=== PATIENT | male | born 1935 | race Caucasian/White ===

== ENCOUNTER 2017-05-01 11:40 | Emergency (ER) | payer MEDICARE ==
[~2017-05-01] VITALS: Ht 180.3 cm; Wt 88.2 kg
[~2017-05-01 11:40] MED LIST: CEPH500 PO; CIPR500T4 PO; LORTA10 PO; RANI150 PO; ZOFR4TAB3 SL
[2017-05-01 11:50] VITALS: BP 128/67; PULSE 83; RESP 18; TEMP 98.4; O2SAT 97
[2017-05-01] MEDS ORDERED: SODIUM CHLORIDE 0.9% FLUSH 10 ML FLUSH IVF PRN (12:00)
[2017-05-01] MEDS ORDERED: HYDROmorphone HCL PF 1 MG/ML VIAL IVS ONE (12:00)
[2017-05-01 12:03] VITALS: O2SAT 96
[2017-05-01] MEDS ORDERED: HYDR-3583 PO (12:07)
[2017-05-01] MEDS ORDERED: CIPR-9 PO (12:07)
--- NOTE | 2017-05-01 12:08 | PD ---
HPI Chief Complaint: Pain: Acute or Chronic Time Seen by Provider: 11:50 Travel History International Travel<30 days: No Contact w/Intl Traveler<30days: No Traveled to known affect area: No History of Present Illness HPI STATES THAT ABOUT 2 DAYS AGO HE FELL OFF HIS BED, AND SINCE THEN HAS HAD RIGHT HIP PAIN , SHARP, 8/10, WORSE WITH AMBULATION/WEIGHT BEARING, NO ALLEVIATING FACTORS, NO OTHER ASSOC FACTORS. PFSH Past Medical History Arthritis: Yes Asthma: No Autoimmune Disease: No Heart Rhythm Problems: No Cancer: Yes (PROSTATE [place] 2007) Cardiovascular Problems: No High Cholesterol: No Chemotherapy: No Chest Pain: No Congestive Heart Failure: No COPD: No Cerebrovascular Accident: No Diabetes: No Diminished Hearing: Yes GERD: Yes Genitourinary: Yes ([place] PROSTATE, URINARY RETENTION) Hepatitis: No Hiatal Hernia: Yes Herniated Disk: Yes Immune Disorder: No Kidney Stones: No Medical other: Yes (CHRONIC BACK PAIN) Musculoskeletal: Yes (LEFT ARM LIMITED MOVEMENT) Neurologic: Yes (DIPLOPIA) Psychiatric: No Reproductive: No Respiratory: No Immunizations Current: Yes Migraines: No Radiation Therapy: Yes Renal Failure: No Seizures: No Sickle Cell Disease: No Sleep Apnea: No Thyroid Disease: No Ulcer: No Influenza Vaccination: No Past Surgical History Abdominal Surgery: Yes (APPENDECTOMY) AICD: No Appendectomy: Yes Arteriovenous Shunt: No Cardiac Surgery: No 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) Endocrine Surgery: No Eye Surgery: No Genitourinary Surgery: No Gynecologic Surgery: No Insulin Pump: No Joint Replacement: Yes (LEFT SHOULDER, LEFT KNEE) Neurologic Surgery: Yes (LAMINECTOMY) Oral Surgery: Yes (TONSILLECTOMY) Pacemaker: No Prostatectomy: Yes (2002) Thoracic Surgery: No Tonsillectomy: Yes () Other Surgery: Yes ( 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 HEAD: Atraumatic. Normocephalic. EYES: Pupils equal and round. No scleral icterus. No injection or drainage. ENT: No nasal bleeding or discharge. Mucous membranes pink and moist. NECK: Trachea midline. No JVD. CARDIOVASCULAR: Regular rate and rhythm. RESPIRATORY: No accessory muscle use. Clear to auscultation. Breath sounds equal bilaterally. GASTROINTESTINAL: Abdomen soft, non-tender, nondistended. MUSCULOSKELETAL: Extremities without clubbing, cyanosis, or edema. No obvious deformities. BUT TTP ALONG LATERAL HIP(NEAR GREATER TROCHANTER), NO DEFORMITY, SKIN INTACT. NEUROLOGICAL: Awake and alert. No obvious cranial nerve deficits. Motor grossly within normal limits. Five out of 5 muscle strength in the arms and legs. Normal speech. PSYCHIATRIC: Appropriate mood and affect; insight and judgment normal. Data Data Last Documented VS Vital Signs Date Time Temp Pulse Resp B/P Pulse Ox O2 Delivery O2 Flow Rate FiO2 05/01/17 12:03 96 Room Air 05/01/17 11:50 98.4 83 18 128/67 Orders Electrocardiogram (05/01/17 11:50) Complete Blood Count With Diff (05/01/17 11:50) Comprehensive Metabolic Panel (05/01/17 11:50) Prothrombin Time / Inr (Pt) (05/01/17 11:50) Act Partial Throm Time (Ptt) (05/01/17 11:50) Hip, Uni(Ap&Lat) W Ap Pelvis (05/01/17 11:50) Iv Access Insert/Monitor (05/01/17 11:50) Oximetry (05/01/17 11:50) Ecg Monitoring (05/01/17 11:50) Sodium Chloride 0.9% Flush (Ns Flush) (05/01/17 12:00) Hydromorphone Pf Inj (Dilaudid Pf Inj) (05/01/17 12:00) Labs Laboratory Tests Test 05/01/17 12:13 White Blood Count 6.4 TH/MM3 Red Blood Count 5.11 MIL/MM3 Hemoglobin 14.2 GM/DL Hematocrit 43.7 % Mean Corpuscular Volume 85.5 FL Mean Corpuscular Hemoglobin 27.8 PG Mean Corpuscular Hemoglobin 32.5 % Concent Red Cell Distribution Width 14.0 % Platelet Count 189 TH/MM3 Mean Platelet Volume 7.1 FL Neutrophils (%) (Auto) 76.4 % Lymphocytes (%) (Auto) 10.3 % Monocytes (%) (Auto) 9.9 % Eosinophils (%) (Auto) 2.8 % Basophils (%) (Auto) 0.6 % Neutrophils # (Auto) 4.9 TH/MM3 Lymphocytes # (Auto) 0.7 TH/MM3 Monocytes # (Auto) 0.6 TH/MM3 Eosinophils # (Auto) 0.2 TH/MM3 Basophils # (Auto) 0.0 TH/MM3 CBC Comment DIFF FINAL Differential Comment Prothrombin Time 11.0 SEC Prothromb Time International 1.0 RATIO Ratio Activated Partial 32.3 SEC Thromboplast Time Sodium Level 141 MEQ/L Potassium Level 4.2 MEQ/L Chloride Level 107 MEQ/L Carbon Dioxide Level 26.6 MEQ/L Anion Gap 7 MEQ/L Blood Urea Nitrogen 24 MG/DL Creatinine 1.10 MG/DL Estimat Glomerular Filtration 64 ML/MIN Rate Random Glucose 109 MG/DL Calcium Level 8.8 MG/DL Total Bilirubin 0.7 MG/DL Aspartate Amino Transf 17 U/L (AST/SGOT) Alanine Aminotransferase 18 U/L (ALT/SGPT) Alkaline Phosphatase 109 U/L Total Protein 7.4 GM/DL Albumin 3.5 GM/DL MDM Medical Decision Making Medical Screen Exam Complete: Yes Emergency Medical Condition: Yes Medical Record Reviewed: Yes Differential Diagnosis CONTUSION V HIP DISLOCATION V HIP FX V PELVIC FX Narrative Course PER REVIEW OF XRAY AND ALSO READ BY RADIOLOGIST: NO HIP FX OR DISLOCATION, ALSO NO PELVIC FX EITHER. AREA NEAR GREATER TROCHANTER HAD SOME TTP OVER SOFT TISSUE BUT INTERNAL/EXTERNAL ROTATION AT HIP PAINLESS. Diagnosis Primary Impression: RIGHT HIP CONTUSION Patient Instructions: General Instructions, Hip Contusion (ED) Scripts Polyethylene Glycol 3350 Powder (Miralax Powder)17 Gm Powd17 Gm PO DAILY #1 CAN Ref 0 Mix and dissolve one measuring cap-ful (17 grams) in water or juice. Prov:Joni Yang MD 05/01/17 Oxycodone-Acetaminophen (Percocet)5-325 mg Tab1 Tab PO Q6H PRN (PAIN) #28 TAB Prov:Joni Yang MD 05/01/17 Disposition: 01 DISCHARGE HOME Condition: Stable Joni Yang MD May 01, 2017 12:08
[2017-05-01 12:17] LABS: AUTOMATED NEUTROPHIL # 4.9 TH/MM3 (1.8-7.7); BASOPHIL % 0.6 % (0.0-2.0); EOSINOPHIL # 0.2 TH/MM3 (0-0.4); EOSINOPHIL % 2.8 % (0.0-4.0); HEMATOCRIT 43.7 % (39.0-51.0); HEMO FLAGS DIFF FINAL; LYMPH % 10.3 % (9.0-44.0); LYMPHOCYTE # 0.7 TH/MM3 (1.0-4.8); MEAN CELL VOLUME 85.5 FL (80.0-100.0); MEAN CORPUSCULAR HEMOGLOBIN 27.8 PG (27.0-34.0); MEAN CORPUSCULAR HGB CONC 32.5 % (32.0-36.0); MONO % 9.9 % (0.0-8.0); NEUT % 76.4 % (16.0-70.0); PLATELET COUNT 189 TH/MM3 (150-450); RED BLOOD COUNT 5.11 MIL/MM3 (4.50-5.90); WHITE BLOOD COUNT 6.4 TH/MM3 (4.0-11.0)
[2017-05-01 12:28] LABS: CHLORIDE 107 MEQ/L (98-107); POTASSIUM 4.2 MEQ/L (3.5-5.1); SODIUM (NA) 141 MEQ/L (136-145)
[2017-05-01 12:32] LABS: APTT (PATIENT) 32.3 SEC (24.3-30.1)
[2017-05-01 12:33] LABS: ANION GAP 7 MEQ/L (5-15); BICARBONATE 26.6 MEQ/L (21.0-32.0); BLOOD UREA NITROGEN 24 MG/DL (7-18)
[2017-05-01 12:36] LABS: ALT (GPT) 18 U/L (12-78); AST (GOT) 17 U/L (15-37); GLOMERULAR FILTRATION RATE 64 ML/MIN (>89)
[2017-05-01 12:38] LABS: TOTAL BILIRUBIN ADULT 0.7 MG/DL (0.2-1.0)
[2017-05-01 12:39] LABS: ALKALINE PHOSPHATASE 109 U/L (45-117)
--- NOTE | 2017-05-01 12:49 | RADRPT ---
EXAM DATE/TIME: 05/01/2017 12:32 [facility] COMPARISON: No previous studies available for comparison. INDICATIONS : Right hip pain. MEDICAL HISTORY : None. SURGICAL HISTORY : None. ENCOUNTER: Initial ACUITY: 2 weeks PAIN SCORE: 10/10 LOCATION: Right hip FINDINGS: Examination of the right hip was performed with AP Pelvis. The primary and secondary trabecular kiara jerome of the femoral neck is intact. The hip joint is of normal width without significant sclerosis or bony hypertrophy. The acetabulum is grossly intact. There is some mild degenerative changes involvi ng the right hip joint with some narrowing of the joint space. CONCLUSION: No acute fracture or joint dislocation. Primary degenerative arthritis. Marshall Lantigua MD on May 01, 2017 at 12:47 Board Certified Radiologist. This report was verified electronically.
[2017-05-01] MEDS ORDERED: PERC5TAB12 PO (13:02)
[2017-05-01] MEDS ORDERED: MIRA3350 PO (13:02)
[2017-05-01 13:50] VITALS: BP 125/74
--- NOTE | 2017-05-02 08:38 | EKG ---
Date Performed: 05/01/2017 Time Performed: 12:03:37 PTAGE: 82 years EKG: Sinus rhythm LOW QRS VOLTAGE IN PRECORDIAL LEADS LEFT ANTERIOR FASCICULAR BLOCK POSSIBLE ANTERIOR MYOCARDIAL INFA RCTION ABNORMAL ECG PREVIOUS TRACING : 08/30/2015 06.29 DOCTOR: Khris Mota Interpretating Date/Time 05/02/2017 08:32:25
== END 2017-05-01 13:52 | disposition home or self-care (01) ==
LOC: PHED 11:40
DX: S70.01XA Contusion of right hip, initial encounter (principal); I44.4 Left anterior fascicular block; K21.9 Gastro-esophageal reflux disease without esophagitis; W06.XXXA Fall from bed, initial encounter; Y92.003 Bedroom of unspecified non-institutional (private) residence as the place of occurrence of the external cause; Y99.8 Other external cause status
CPT/HCPCS: 73502; 80053; 85025; 85610; 85730; 93005; 96374; 99285; J1170

== ENCOUNTER 2017-05-23 00:06 | Emergency (ER) | payer MEDICARE ==
[~2017-05-23] VITALS: Ht 180.3 cm; Wt 86.4 kg
[~2017-05-23 00:06] MED LIST changes: -CEPH500 PO; +CIPR-9 PO; -CIPR500T4 PO; +HYDR-3583 PO; -LORTA10 PO; +MIRA3350 PO; +PERC5TAB12 PO; -RANI150 PO; -ZOFR4TAB3 SL
[2017-05-23 00:16] VITALS: BP 111/57; PULSE 84; RESP 16; TEMP 97.9; O2SAT 95
--- NOTE | 2017-05-23 01:11 | PD ---
HPI Chief Complaint: Complaint Time Seen by Provider: 01:08 Travel History International Travel<30 days: No Contact w/Intl Traveler<30days: No Traveled to known affect area: No History of Present Illness HPI The patient is an 82-year-old male that complains of left groin pain for 3 days. He states he is able to urinate. He does have a history kidney stones. He also has a history of prostate cancer. He denies any dysuria, frequency or urgency. His bladder does not feel distended. He has been taking Percocet and has not had a bowel movement in several days. He realized that he may have opiate-induced constipation and he discontinued today the Percocet. He denies any fever, nausea or vomiting. He says his pain as a burning pain and an 810. PFSH Past Medical History Arthritis: Yes Asthma: No Autoimmune Disease: No Heart Rhythm Problems: No Cancer: Yes (PROSTATE [place] 2007) Cardiovascular Problems: No High Cholesterol: No Chemotherapy: No Chest Pain: No Congestive Heart Failure: No COPD: No Cerebrovascular Accident: No Diabetes: No Diminished Hearing: Yes GERD: Yes Genitourinary: Yes ([place] PROSTATE, URINARY RETENTION) Hepatitis: No Hiatal Hernia: Yes Herniated Disk: Yes Immune Disorder: No Kidney Stones: No Musculoskeletal: Yes (LEFT ARM LIMITED MOVEMENT) Neurologic: Yes (DIPLOPIA) Psychiatric: No Reproductive: No Respiratory: No Immunizations Current: Yes Migraines: No Radiation Therapy: Yes Renal Failure: No Seizures: No Sickle Cell Disease: No Sleep Apnea: No Thyroid Disease: No Ulcer: No Past Surgical History Abdominal Surgery: Yes (APPENDECTOMY) AICD: No Appendectomy: Yes Arteriovenous Shunt: No Cardiac Surgery: No 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) Endocrine Surgery: No Eye Surgery: No Genitourinary Surgery: No Gynecologic Surgery: No Insulin Pump: No Joint Replacement: Yes (LEFT SHOULDER, LEFT KNEE) Neurologic Surgery: Yes (LAMINECTOMY) Oral Surgery: Yes (TONSILLECTOMY) Pacemaker: No Prostatectomy: Yes (2002) Thoracic Surgery: No Tonsillectomy: Yes () Other Surgery: Yes ( 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 Percocet (Oxycodone-Acetaminophen) 5-325 mg Tab 1 Tab PO Q6H PRN Reported Hydrocodone-Acetaminophen 10-325 mg Tab 1 Tab PO Q6H PRN Review of Systems Except as stated in HPI: all other systems reviewed are Neg Physical Exam Narrative GENERAL: The patient is alert, oriented 3 and moderate apparent distress with his left groin pain. His vital signs are normal. SKIN: Focused skin assessment warm/dry. HEAD: Atraumatic. Normocephalic. EYES: Pupils equal and round. No scleral icterus. No injection or drainage. ENT: No nasal bleeding or discharge. Mucous membranes pink and moist. NECK: Trachea midline. No JVD. CARDIOVASCULAR: Regular rate and rhythm. No murmur appreciated. RESPIRATORY: No accessory muscle use. Clear to auscultation. Breath sounds equal bilaterally. GASTROINTESTINAL: Abdomen soft, with tenderness to direct palpation in the left groin, nondistended. Hepatic and splenic margins not palpable. Specifically, no hernias are palpable but there is some tenderness in the direct hernia area. MUSCULOSKELETAL: No obvious deformities. No clubbing. No cyanosis. No edema. NEUROLOGICAL: Awake and alert. No obvious cranial nerve deficits. Motor grossly within normal limits. Normal speech. PSYCHIATRIC: Appropriate mood and affect; insight and judgment normal. Data Data Last Documented VS Vital Signs Date Time Temp Pulse Resp B/P (MAP) Pulse Ox O2 Delivery O2 Flow Rate FiO2 05/23/17 02:14 76 16 106/56 (73) 95 05/23/17 01:15 Room Air 05/23/17 00:16 97.9 Orders Orders Complete Blood Count With Diff (05/23/17 01:14) Comprehensive Metabolic Panel (05/23/17 01:14) Urinalysis - C+S If Indicated (05/23/17 01:14) Ct Abd/Pel W Iv Contrast(Rout) (05/23/17 01:14) Iv Access Insert/Monitor (05/23/17 01:14) Ecg Monitoring (05/23/17 01:14) Oximetry (05/23/17 01:14) Sodium Chloride 0.9% Flush (Ns Flush) (05/23/17 01:15) Urine Culture (05/23/17 01:20) Hydromorphone Pf Inj (Dilaudid Pf Inj) (05/23/17 02:30) Ondansetron Inj (Zofran Inj) (05/23/17 02:30) Sodium Chlor 0.9% 1000 Ml Inj (Ns 1000 M (05/23/17 02:30) Iohexol 350 Inj (Omnipaque 350 Inj) (05/23/17 02:52) Ceftriaxone Inj (Rocephin Inj) (05/23/17 04:00) Labs Laboratory Tests Test 05/23/17 01:20 05/23/17 01:30 Urine Color YELLOW Urine Turbidity SLIGHT Urine pH 5.5 Urine Specific [place] 1.014 Urine Protein NEG mg/dL Urine Glucose (UA) NEG mg/dL Urine Ketones NEG mg/dL Urine Occult Blood LARGE Urine Nitrite NEG Urine Bilirubin NEG Urine Leukocyte Esterase SMALL Urine RBC 50-99 /hpf Urine WBC 9-14 /hpf Urine Squamous Epithelial Cells 0-5 /hpf Urine Bacteria OCC /hpf Urine Mucus FEW /lpf Microscopic Urinalysis Comment CULTURE INDICATED White Blood Count 8.2 TH/MM3 Red Blood Count 5.34 MIL/MM3 Hemoglobin 14.9 GM/DL Hematocrit 46.6 % Mean Corpuscular Volume 87.3 FL Mean Corpuscular Hemoglobin 27.9 PG Mean Corpuscular Hemoglobin Concent 31.9 % Red Cell Distribution Width 14.9 % Platelet Count 216 TH/MM3 Mean Platelet Volume 7.5 FL Neutrophils (%) (Auto) 78.4 % Lymphocytes (%) (Auto) 9.8 % Monocytes (%) (Auto) 7.8 % Eosinophils (%) (Auto) 3.2 % Basophils (%) (Auto) 0.8 % Neutrophils # (Auto) 6.4 TH/MM3 Lymphocytes # (Auto) 0.8 TH/MM3 Monocytes # (Auto) 0.6 TH/MM3 Eosinophils # (Auto) 0.3 TH/MM3 Basophils # (Auto) 0.1 TH/MM3 CBC Comment DIFF FINAL Differential Comment Blood Urea Nitrogen 29 MG/DL Creatinine 1.30 MG/DL Random Glucose 105 MG/DL Total Protein 8.2 GM/DL Albumin 3.9 GM/DL Calcium Level 9.2 MG/DL Alkaline Phosphatase 113 U/L Aspartate Amino Transf (AST/SGOT) 19 U/L Alanine Aminotransferase (ALT/SGPT) 22 U/L Total Bilirubin 0.4 MG/DL Sodium Level 142 MEQ/L Potassium Level 4.4 MEQ/L Chloride Level 109 MEQ/L Carbon Dioxide Level 27.5 MEQ/L Anion Gap 6 MEQ/L Estimat Glomerular Filtration Rate 53 ML/MIN MDM Medical Decision Making Medical Screen Exam Complete: Yes Emergency Medical Condition: Yes Medical Record Reviewed: Yes Interpretation(s) The CBC is normal. Metabolic profile shows a BUN of 29 and GFR 53 but is otherwise normal. The urine shows large occult blood, small leukocyte esterase , 50-99 red cells and 9-14 white cells and culture is indicated. Differential Diagnosis Incarcerated inguinal hernia, direct inguinal hernia, strangulated inguinal hernia, urinary stone, urinary tract infection, lymph node swelling Narrative Course The patient has a urinary tract infection. There is no evidence of other infection, hernia or urinary stone on the CT of the abdomen. Critical Care Narrative The patient appears to have urinary tract infection. He will be put on Macrobid twice daily for 10 days. Diagnosis Primary Impression: Urinary tract infection Additional Instructions: Drink increased amounts of liquids and follow-up with Dr. Bennett about your frequent urinary tract infections. Med/Other Pt SpecificInfo: Prescription(s) given Scripts Nitrofurantoin Monohydrate Macrocrystals (Macrobid) 100 Mg Capsule 100 MG PO BID for Infection for 10 Days, CAP 0 Refills Prov: Ankush Saha MD 05/23/17 Disposition: 01 DISCHARGE HOME Condition: Stable Ankush Saha MD May 23, 2017 01:11
[2017-05-23 01:15] VITALS: BP 126/74; PULSE 79; RESP 18; O2SAT 94
[2017-05-23] MEDS ORDERED: SODIUM CHLORIDE 0.9% FLUSH 10 ML FLUSH IV FLUSH PRN (01:15)
[2017-05-23 01:55] LABS: AUTOMATED NEUTROPHIL # 6.4 TH/MM3 (1.8-7.7); BASOPHIL # 0.1 TH/MM3 (0-0.2); BASOPHIL % 0.8 % (0.0-2.0); EOSINOPHIL # 0.3 TH/MM3 (0-0.4); EOSINOPHIL % 3.2 % (0.0-4.0); HEMATOCRIT 46.6 % (39.0-51.0); HEMO FLAGS DIFF FINAL; LYMPH % 9.8 % (9.0-44.0); LYMPHOCYTE # 0.8 TH/MM3 (1.0-4.8); MEAN CELL VOLUME 87.3 FL (80.0-100.0); MEAN CORPUSCULAR HEMOGLOBIN 27.9 PG (27.0-34.0); MEAN CORPUSCULAR HGB CONC 31.9 % (32.0-36.0); MONO % 7.8 % (0.0-8.0); NEUT % 78.4 % (16.0-70.0); PLATELET COUNT 216 TH/MM3 (150-450); RED BLOOD COUNT 5.34 MIL/MM3 (4.50-5.90); RED CELL DISTRIBUTION WIDTH 14.9 % (11.6-17.2); WHITE BLOOD COUNT 8.2 TH/MM3 (4.0-11.0)
[2017-05-23 01:56] LABS: BLOOD, URINE LARGE (NEG); GLUCOSE,URINE NEG (NEG); KETONE, URINE NEG (NEG); NITRITE,URINE NEG (NEG); PH, URINE 5.5 (5.0-8.5)
[2017-05-23 02:03] LABS: CHLORIDE 109 MEQ/L (98-107); POTASSIUM 4.4 MEQ/L (3.5-5.1); SODIUM (NA) 142 MEQ/L (136-145)
[2017-05-23 02:05] LABS: URINE COLOR YELLOW (YELLW/STRAW)
[2017-05-23 02:06] LABS: MUCUS URINE FEW /lpf (OCC)
[2017-05-23 02:07] LABS: BACTERIA, URINE OCC /hpf; COMMENT (UR) CULTURE INDICATED; CULTURE IF INDICATED CULTURE INDICATED; SQUAMOUS EPITHELIAL CELL URINE 0-5 /hpf (0-5)
[2017-05-23 02:08] LABS: ANION GAP 6 MEQ/L (5-15); BICARBONATE 27.5 MEQ/L (21.0-32.0); BLOOD UREA NITROGEN 29 MG/DL (7-18)
[2017-05-23 02:11] LABS: ALT (GPT) 22 U/L (12-78); AST (GOT) 19 U/L (15-37); GLOMERULAR FILTRATION RATE 53 ML/MIN (>89)
[2017-05-23 02:12] LABS: TOTAL BILIRUBIN ADULT 0.4 MG/DL (0.2-1.0)
[2017-05-23 02:13] LABS: ALKALINE PHOSPHATASE 113 U/L (45-117)
[2017-05-23 02:14] VITALS: BP 106/56; PULSE 76; RESP 16; O2SAT 95
[2017-05-23] MEDS ORDERED: SODIUM CHLOR 0.9% 1000 ML INJ 1,000 ML IV SCH (02:30)
[2017-05-23] MEDS ORDERED: HYDROmorphone HCL PF 1 MG/ML VIAL IVP ONE (02:30)
[2017-05-23] MEDS ORDERED: ONDANSETRON HCL 4 MG/2 ML VIAL IV ONE (02:30)
[2017-05-23] MEDS ORDERED: IOHEXOL 350 MG/ML 10 ML VIAL (for RAD DIAG) IVCONTRAST ONE (02:52)
--- NOTE | 2017-05-23 03:16 | RADRPT ---
EXAM DATE/TIME: 05/23/2017 02:32 [facility] COMPARISON: CT ABDOMEN & PELVIS W CONTRAST, January 26, 2015, 9:12. INDICATIONS : Left groin pain for three days. IV CONTRAST: 100 cc Omnipaque 350 (iohexol) IV ORAL CONTRAST: No oral contrast ingested. RADIATION DOSE: 20.43 CTDIvol (mGy) MEDICAL HISTORY : Gastroesophageal reflux disease. Hernia, hiatal. Carcinoma, prostate. SURGICAL HISTORY : Appendectomy. ENCOUNTER: Initial ACUITY: 3 days PAIN SCALE: 8/10 LOCATION: Left lower quadrant TECHNIQUE: Volumetric scanning of the abdomen and pelvis was performed. Using automated exposure control and ad justment of the mA and/or kV according to patient size, radiation dose was kept as low as reasonably achievable to obtain optimal diagnostic quality images. DICOM format image data is available electro nically for review and comparison. FINDINGS: LOWER LUNGS: The visualized lower lungs are clear. LIVER: Homogeneous density without concerning lesion. There is a stable 9 mm low density lesion in the left lobe. There is no dilation of the biliary tree. No calcified gallstones. SPLEEN: Normal size without lesion. PANCREAS: Within normal limits. KIDNEYS: Normal in size and shape. There is no mass or hydronephrosis. There is a stable low-density lesion i n the left lower pole kidney measuring 5.6 cm. 2 nonobstructing left renal stones are present. ADRENAL GLANDS: Within normal limits. VASCULAR: There is no aortic aneurysm. There is mild atherosclerotic disease. BOWEL/MESENTERY: The stomach, small bowel, and colon demonstrate no acute abnormality. There is no free intraperitone al air or fluid. There is sigmoid diverticulosis. ABDOMINAL WALL: Within normal limits. RETROPERITONEUM: There is no lymphadenopathy. BLADDER: No wall thickening or mass. REPRODUCTIVE: Within normal limits. INGUINAL: There is no lymphadenopathy or hernia. MUSCULOSKELETAL: There are degenerative changes. No acute finding is identified. CONCLUSION: 1. No acute finding is identified in the abdomen or pelvis. 2. Nonacute findings include atherosclerotic disease, nonobstructing left renal stones, sigmoid diver ticulosis, and exophytic low-density lesion arising from the left lower pole kidney. Andreas Gay MD on May 23, 2017 at 3:10 Board Certified Radiologist. This report was verified electronically.
[2017-05-23 03:37] VITALS: RESP 16
[2017-05-23] MEDS ORDERED: cefTRIAXone INJ 1,000 MG in SODIUM CHLORIDE 0.9% INJ 100 ML IV ONE (04:00)
[2017-05-23] MEDS ORDERED: MACR100C2 PO (04:00)
[2017-05-23 04:36] VITALS: BP 116/71
== END 2017-05-23 05:04 | disposition home or self-care (01) ==
LOC: PHED 00:06
DX: N39.0 Urinary tract infection, site not specified (principal); B95.2 Enterococcus as the cause of diseases classified elsewhere; Z87.442 Personal history of urinary calculi; Z85.46 Personal history of malignant neoplasm of prostate
CPT/HCPCS: 74177; 80053; 81001; 85025; 87077; 87086; 87186; 96361; 96365; 96375; 99285; J0696; J1170; J2405; J7030; Q9967

== ENCOUNTER 2017-06-02 09:53 | Emergency (ER) | payer MEDICARE ==
[~2017-06-02 09:53] MED LIST changes: -CIPR-9 PO; +MACR100C2 PO
[2017-06-02 10:08] VITALS: BP 144/73; PULSE 79; RESP 18; TEMP 98.7; O2SAT 98
[2017-06-02 10:38] LABS: BLOOD, URINE TRACE (NEG); GLUCOSE,URINE NEG (NEG); KETONE, URINE NEG (NEG); NITRITE,URINE NEG (NEG); PH, URINE 6.5 (5.0-8.5)
[2017-06-02 10:47] LABS: METHOD OF COLLECTION CLEAN CATCH; SQUAMOUS EPITHELIAL CELL URINE 0-5 /hpf (0-5); URINE COLOR YELLOW (YELLW/STRAW); WBC, URINE 15-19 /hpf (0-5)
[2017-06-02 10:48] LABS: COMMENT (UR) CULTURE INDICATED; CULTURE IF INDICATED CULTURE INDICATED
--- NOTE | 2017-06-02 11:14 | PD ---
HPI Chief Complaint: Abnormal Results Time Seen by Provider: 10:12 Travel History International Travel<30 days: No Contact w/Intl Traveler<30days: No Traveled to known affect area: No History of Present Illness HPI This 82-year-old male was told to come here because of a positive urine culture for enterococcus faecalis. He was seen here on May 23 no hematuria. He was diagnosed with a urinary tract infection and was started on Macrobid. He says he has been taking the Macrobid. He was called today because the culture became positive. He says he has very little energy. He has not had fever or chills. He takes Percocet for chronic musculoskeletal pain. He has a long history of urologic problems. He has a history of prostate cancer and some complications from a catheter. He has had multiple urinary tract infections including MRSA infection and other antibiotic resistant. He says that after he was seen here he went to see Dr. Mendenhall and he was told there was no evidence of infection. PFSH Past Medical History Arthritis: Yes Asthma: No Autoimmune Disease: No Heart Rhythm Problems: No Cancer: Yes (PROSTATE CA 2007) Cardiovascular Problems: No High Cholesterol: No Chemotherapy: No Chest Pain: No Congestive Heart Failure: No COPD: No Cerebrovascular Accident: No Diabetes: No Diminished Hearing: Yes GERD: Yes Genitourinary: Yes ([place] PROSTATE, URINARY RETENTION) Headaches: No Hepatitis: No Hiatal Hernia: Yes Herniated Disk: Yes Immune Disorder: No Kidney Stones: No Medical other: Yes (CHRONIC BACK PAIN) Musculoskeletal: Yes (LEFT ARM LIMITED MOVEMENT) Neurologic: Yes (DIPLOPIA) Psychiatric: No Reproductive: No Respiratory: No Immunizations Current: Yes Migraines: No Radiation Therapy: Yes Renal Failure: No Seizures: No Sickle Cell Disease: No Sleep Apnea: No Thyroid Disease: No Ulcer: No Influenza Vaccination: No ?: Not Past Surgical History Abdominal Surgery: Yes (APPENDECTOMY) AICD: No Appendectomy: Yes Arteriovenous Shunt: No Cardiac Surgery: No 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) Endocrine Surgery: No Eye Surgery: No Genitourinary Surgery: No Gynecologic Surgery: No Insulin Pump: No Joint Replacement: Yes (LEFT SHOULDER, LEFT KNEE) Neurologic Surgery: Yes (LAMINECTOMY) Oral Surgery: Yes (TONSILLECTOMY) Pacemaker: No Prostatectomy: Yes (2002) Thoracic Surgery: No Tonsillectomy: Yes () Other Surgery: Yes ( 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) Social History Alcohol Use: No Tobacco Use: No Substance Use: No Allergies-Medications (Allergen,Severity, Reaction): Coded Allergies: No Known Allergies (Verified , 06/02/17) Reported Meds & Prescriptions Reported Meds & Active Scripts Active Reported Hydrocodone-Acetaminophen 10-325 mg Tab 1 Tab PO Q6H PRN Review of Systems General / Constitutional: No: Fever, Chills Eyes: No: Diploplia, Blurred Vision HENT: No: Headaches, Vertigo Cardiovascular: No: Chest Pain or Discomfort, Palpitations Respiratory: No: Cough, Shortness of Breath Gastrointestinal: No: Nausea, Vomiting Genitourinary: Positive: Hematuria Musculoskeletal: No: Myalgias, Arthralgias Physical Exam Narrative GENERAL: Well-developed male SKIN: Focused skin assessment warm/dry. HEAD: Atraumatic. Normocephalic. EYES: Pupils equal and round. No scleral icterus. No injection or drainage. ENT: No nasal bleeding or discharge. Mucous membranes pink and moist. NECK: Trachea midline. No JVD. CARDIOVASCULAR: Regular rate and rhythm. No murmur appreciated. RESPIRATORY: No accessory muscle use. Clear to auscultation. Breath sounds equal bilaterally. GASTROINTESTINAL: Abdomen soft, non-tender, nondistended. Hepatic and splenic margins not palpable. MUSCULOSKELETAL: No obvious deformities. No clubbing. No cyanosis. No edema. NEUROLOGICAL: Awake and alert. No obvious cranial nerve deficits. Motor grossly within normal limits. Normal speech. PSYCHIATRIC: Appropriate mood and affect; insight and judgment normal. Data Data Last Documented VS Vital Signs Date Time Temp Pulse Resp B/P (MAP) Pulse Ox O2 Delivery O2 Flow Rate FiO2 06/02/17 10:08 98.7 79 18 144/73 (96) 98 Orders Orders Urinalysis - C+S If Indicated (06/02/17 10:15) Urine Culture (06/02/17 10:30) Labs Laboratory Tests Test 06/02/17 10:30 Urine Collection Type CLEAN CATCH Urine Color YELLOW Urine Turbidity CLEAR Urine pH 6.5 Urine Specific [place] 1.026 Urine Protein 30 mg/dL Urine Glucose (UA) NEG mg/dL Urine Ketones NEG mg/dL Urine Occult Blood TRACE Urine Nitrite NEG Urine Bilirubin NEG Urine Leukocyte Esterase TRACE Urine RBC 4-9 /hpf Urine WBC 15-19 /hpf Urine WBC Clumps OCC Urine Squamous Epithelial Cells 0-5 /hpf Microscopic Urinalysis Comment CULTURE INDICATED Urine Collection Time 10:30 MDM Medical Decision Making Medical Screen Exam Complete: Yes Emergency Medical Condition: Yes Medical Record Reviewed: Yes Differential Diagnosis Differential includes recurrent UTI Narrative Course Patient has been on antibiotics appropriate for the culture result. His urine is now still shows a persistent white count. I'm not can a change in antibiotics pending results of culture. He he is stable for discharge Diagnosis Primary Impression: Urinary tract infection Qualified Codes: N39.0 - Urinary tract infection, site not specified Baljit Wright MD Jun 02, 2017 11:13
== END 2017-06-02 11:23 | disposition home or self-care (01) ==
LOC: PHED 09:53
DX: N39.0 Urinary tract infection, site not specified (principal); Z87.440 Personal history of urinary (tract) infections; Z85.46 Personal history of malignant neoplasm of prostate; Z86.14 Personal history of Methicillin resistant Staphylococcus aureus infection; K21.9 Gastro-esophageal reflux disease without esophagitis; H91.90 Unspecified hearing loss, unspecified ear
CPT/HCPCS: 81001; 87077; 87086; 87186; 99283

== ENCOUNTER 2017-07-29 06:59 | Emergency (ER) | payer MEDICARE ==
[~2017-07-29] VITALS: Ht 180.3 cm; Wt 82.0 kg
[~2017-07-29 06:59] MED LIST changes: -MACR100C2 PO; -MIRA3350 PO; -PERC5TAB12 PO
[2017-07-29 07:04] VITALS: BP 133/70; PULSE 74; RESP 18; TEMP 98.5; O2SAT 96
[2017-07-29 07:32] LABS: GLUCOSE,URINE NEG (NEG); KETONE, URINE NEG (NEG); NITRITE,URINE POS (NEG); PH, URINE 5.5 (5.0-8.5)
[2017-07-29 07:34] LABS: BLOOD, URINE TRACE (NEG)
--- NOTE | 2017-07-29 07:37 | PD ---
HPI Chief Complaint: Complaint Time Seen by Provider: 07:34 Travel History International Travel<30 days: No Contact w/Intl Traveler<30days: No Traveled to known affect area: No History of Present Illness HPI This patient complains of urinary incontinence. It's a chronic problem that has flared in the last week. He has periodic dripping of urine from the penis. There is no urethral discharge. No pus. He has no pain. He has no problems with retention. He does have a urologist but decided to come to the ER instead of going to the urologist. Denies vomiting. No fever. He doesn't have dysuria or hematuria. Symptoms severity is mild. PFSH Past Medical History Arthritis: Yes Asthma: No Autoimmune Disease: No Heart Rhythm Problems: No Cancer: Yes (PROSTATE [place] 2007) Cardiovascular Problems: No High Cholesterol: No Chemotherapy: No Chest Pain: No Congestive Heart Failure: No COPD: No Cerebrovascular Accident: No Diabetes: No Diminished Hearing: Yes GERD: Yes Genitourinary: Yes ([place] PROSTATE, URINARY RETENTION) Headaches: No Hepatitis: No Hiatal Hernia: Yes Herniated Disk: Yes Immune Disorder: No Kidney Stones: No Medical other: Yes (CHRONIC BACK PAIN) Musculoskeletal: Yes (LEFT ARM LIMITED MOVEMENT) Neurologic: Yes (DIPLOPIA) Psychiatric: No Reproductive: No Respiratory: No Immunizations Current: Yes Migraines: No Radiation Therapy: Yes Renal Failure: No Seizures: No Sickle Cell Disease: No Sleep Apnea: No Thyroid Disease: No Ulcer: No Influenza Vaccination: No ?: Not Past Surgical History Abdominal Surgery: Yes (APPENDECTOMY) AICD: No Appendectomy: Yes Arteriovenous Shunt: No Cardiac Surgery: No 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) Endocrine Surgery: No Eye Surgery: No Genitourinary Surgery: No Gynecologic Surgery: No Insulin Pump: No Joint Replacement: Yes (LEFT SHOULDER, LEFT KNEE) Neurologic Surgery: Yes (LAMINECTOMY) Oral Surgery: Yes (TONSILLECTOMY) Pacemaker: No Prostatectomy: Yes (2002) Thoracic Surgery: No Tonsillectomy: Yes () Other Surgery: Yes ( 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) Social History Alcohol Use: No Tobacco Use: No Substance Use: No Allergies-Medications (Allergen,Severity, Reaction): Coded Allergies: No Known Allergies (Verified Adverse Reaction, Unknown, 07/29/17) Reported Meds & Prescriptions Reported Meds & Active Scripts Active Macrobid (Nitrofurantoin Monohydrate Macrocrystals) 100 Mg Capsule 100 Mg PO BID 10 Days Reported Hydrocodone-Acetaminophen 10-325 mg Tab 1 Tab PO Q6H PRN Review of Systems General / Constitutional: No: Fever HENT: No: Headaches Cardiovascular: No: Chest Pain or Discomfort Respiratory: No: Cough Physical Exam Narrative GASTROINTESTINAL: Abdomen soft, non-tender, nondistended. Positive bowel sounds. No hepato-splenomegaly, or palpable masses. No guarding. : No penile lesions or tenderness or swelling. He is uncircumcised. No scrotal tenderness SKIN: Focused skin assessment reveals no rash or ulcers. Skin is warm and dry. Palpation shows no induration or nodules. Data Data Last Documented VS Vital Signs Date Time Temp Pulse Resp B/P (MAP) Pulse Ox O2 Delivery O2 Flow Rate FiO2 07/29/17 07:04 98.5 74 18 133/70 (91) 96 Orders Orders Urinalysis - C+S If Indicated (07/29/17 07:23) Urine Culture (07/29/17 07:15) Labs Laboratory Tests Test 07/29/17 07:15 Urine Collection Type CLEAN CATCH Urine Color YELLOW Urine Turbidity SLIGHT Urine pH 5.5 Urine Specific [place] 1.024 Urine Protein TRACE mg/dL Urine Glucose (UA) NEG mg/dL Urine Ketones NEG mg/dL Urine Occult Blood TRACE Urine Nitrite POS Urine Bilirubin NEG Urine Leukocyte Esterase SMALL Urine RBC 0-3 /hpf Urine WBC 25-49 /hpf Urine WBC Clumps FEW Urine Squamous Epithelial Cells 0-5 /hpf Urine Amorphous Sediment FEW Urine Bacteria FEW /hpf Microscopic Urinalysis Comment CULTURE INDICATED Urine Collection Time [address] [facility] Medical Decision Making Medical Screen Exam Complete: Yes Emergency Medical Condition: Yes Medical Record Reviewed: Yes Differential Diagnosis Urinary incontinence, UTI, cystitis Narrative Course I have reviewed the patient's electronic medical record. Urinalysis today reveals pyuria and some inflammatory markers Some antibiotics prescribed Recommended urology follow-up Diagnosis Primary Impression: Urinary tract infection Qualified Codes: N30.00 - Acute cystitis without hematuria Additional Impression: Urinary incontinence Qualified Codes: R32 - Unspecified urinary incontinence Additional Instructions: Follow up with urologist Med/Other Pt SpecificInfo: Prescription(s) given Scripts Nitrofurantoin Monohydrate Macrocrystals (Macrobid) 100 Mg Capsule 100 MG PO BID for Infection for 10 Days, #20 CAP 0 Refills Prov: Manpreet Moore MD 07/29/17 Disposition: 01 DISCHARGE HOME Condition: Stable Manpreet Moore MD Jul 29, 2017 07:37
[2017-07-29 07:46] LABS: METHOD OF COLLECTION CLEAN CATCH; URINE COLOR YELLOW (YELLW/STRAW)
[2017-07-29 07:47] LABS: BACTERIA, URINE FEW /hpf; COMMENT (UR) CULTURE INDICATED; CULTURE IF INDICATED CULTURE INDICATED; RBC, URINE 0-3 /hpf (0-3); SQUAMOUS EPITHELIAL CELL URINE 0-5 /hpf (0-5)
[2017-07-29] MEDS ORDERED: MACR100C2 PO ×2 (08:02→08:06)
== END 2017-07-29 08:29 | disposition home or self-care (01) ==
LOC: PHED 06:59
DX: N30.00 Acute cystitis without hematuria (principal); R32 Unspecified urinary incontinence; B95.2 Enterococcus as the cause of diseases classified elsewhere; H91.90 Unspecified hearing loss, unspecified ear; Z87.39 Personal history of other diseases of the musculoskeletal system and connective tissue; Z85.46 Personal history of malignant neoplasm of prostate; Z87.19 Personal history of other diseases of the digestive system; Z87.448 Personal history of other diseases of urinary system; Z86.69 Personal history of other diseases of the nervous system and sense organs
CPT/HCPCS: 81001; 87077; 87086; 87186; 99283

== ENCOUNTER 2017-09-18 06:34 | Emergency (ER) | payer MEDICARE ==
[~2017-09-18] VITALS: Ht 180.3 cm; Wt 85.0 kg
[~2017-09-18 06:34] MED LIST changes: +MACR100C2 PO
[2017-09-18 06:49] VITALS: BP 154/82; PULSE 71; RESP 18; TEMP 97.7; O2SAT 96
--- NOTE | 2017-09-18 07:46 | PD ---
HPI Chief Complaint: Pain: Acute or Chronic Time Seen by Provider: 07:42 Travel History International Travel<30 days: No Contact w/Intl Traveler<30days: No Traveled to known affect area: No History of Present Illness HPI 82-year-old male patient with history of prostate cancer and UTIs, complications from a previous TURP procedure, has been seeing Dr. Acosta who is post to get back on him about doing further therapy, apparently had done a catheterization 2 weeks ago, and the patient states that since then he's been having suprapubic pains, pain in his penis, and feels like he has to urinate on and off intermittently in has to make a bowel movement on and off intermittently but can't really go. He has been nauseous but denies any vomiting, fevers, or any other symptoms. Modifying Factors: None Associated Signs & Symptoms: Suprapubic discomfort, constipation, trouble with urination Risk Factors: Elderly, previous UTIs, prostate cancer, complicated urethral procedure PFSH Past Medical History Arthritis: Yes Asthma: No Autoimmune Disease: No Heart Rhythm Problems: No Cancer: Yes (PROSTATE [place] 2007) Cardiovascular Problems: No High Cholesterol: No Chemotherapy: No Chest Pain: No Congestive Heart Failure: No COPD: No Cerebrovascular Accident: No Diabetes: No Diminished Hearing: Yes GERD: Yes Genitourinary: Yes ([place] PROSTATE, URINARY RETENTION) Headaches: No Hepatitis: No Hiatal Hernia: Yes Herniated Disk: Yes Immune Disorder: No Kidney Stones: No Medical other: Yes (CHRONIC BACK PAIN) Musculoskeletal: Yes (LEFT ARM LIMITED MOVEMENT) Neurologic: Yes (DIPLOPIA) Psychiatric: No Reproductive: No Respiratory: No Immunizations Current: Yes Migraines: No Radiation Therapy: Yes Renal Failure: No Seizures: No Sickle Cell Disease: No Sleep Apnea: No Thyroid Disease: No Ulcer: No ?: Not Past Surgical History Abdominal Surgery: Yes (APPENDECTOMY) AICD: No Appendectomy: Yes Arteriovenous Shunt: No Cardiac Surgery: No 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) Endocrine Surgery: No Eye Surgery: No Genitourinary Surgery: No Gynecologic Surgery: No Insulin Pump: No Joint Replacement: Yes (LEFT SHOULDER, LEFT KNEE) Neurologic Surgery: Yes (LAMINECTOMY) Oral Surgery: Yes (TONSILLECTOMY) Pacemaker: No Prostatectomy: Yes (2002) Thoracic Surgery: No Tonsillectomy: Yes () Other Surgery: Yes ( 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 Awake and oriented 3. SKIN: Focused skin assessment warm/dry. HEAD: Atraumatic. Normocephalic. EYES: Pupils equal and round. No scleral icterus. No injection or drainage. ENT: No nasal bleeding or discharge. Mucous membranes pink and moist. NECK: Trachea midline. No JVD. CARDIOVASCULAR: Regular rate and rhythm. No murmur appreciated. RESPIRATORY: No accessory muscle use. Clear to auscultation. Breath sounds equal bilaterally. GASTROINTESTINAL: Abdomen soft, mild suprapubic tenderness without guarding or rebound, nondistended. Hepatic and splenic margins not palpable. GENITOURINARY: Not Circumcised, foreskin is retractable. Testes descended bilaterally without evidence of rotation. No lesions or erythema. No urethral discharge. No obvious hernia. MUSCULOSKELETAL: No obvious deformities. No clubbing. No cyanosis. No edema. NEUROLOGICAL: Awake and alert. No obvious cranial nerve deficits. Motor grossly within normal limits. Normal speech. PSYCHIATRIC: Appropriate mood and affect; insight and judgment normal. Data Data Last Documented VS Vital Signs Date Time Temp Pulse Resp B/P (MAP) Pulse Ox O2 Delivery O2 Flow Rate FiO2 09/18/17 08:39 69 18 145/97 (113) 96 Room Air 09/18/17 06:49 97.7 Orders Orders Complete Blood Count With Diff (09/18/17 07:42) Basic Metabolic Panel (Bmp) (09/18/17 07:42) Urinalysis - C+S If Indicated (09/18/17 07:42) Urine Culture (09/18/17 07:50) Abdomen, Single View (09/18/17 07:42) Urinary Catheter Insert/Apply (09/18/17 08:26) Labs Laboratory Tests Test 09/18/17 07:50 09/18/17 08:13 Urine Color STRAW Urine Turbidity CLEAR Urine pH 6.0 Urine Specific [place] 1.015 Urine Protein TRACE mg/dL Urine Glucose (UA) NEG mg/dL Urine Ketones NEG mg/dL Urine Occult Blood TRACE Urine Nitrite POS Urine Bilirubin NEG Urine Leukocyte Esterase SMALL Urine RBC 0-3 /hpf Urine WBC 15-19 /hpf Urine Squamous Epithelial Cells 0-5 /hpf Urine Bacteria FEW /hpf Microscopic Urinalysis Comment CULTURE INDICATED White Blood Count 7.5 TH/MM3 Red Blood Count 4.78 MIL/MM3 Hemoglobin 13.7 GM/DL Hematocrit 41.7 % Mean Corpuscular Volume 87.1 FL Mean Corpuscular Hemoglobin 28.6 PG Mean Corpuscular Hemoglobin Concent 32.9 % Red Cell Distribution Width 14.3 % Platelet Count 190 TH/MM3 Mean Platelet Volume 7.2 FL Neutrophils (%) (Auto) 73.3 % Lymphocytes (%) (Auto) 12.4 % Monocytes (%) (Auto) 8.6 % Eosinophils (%) (Auto) 1.3 % Basophils (%) (Auto) 4.4 % Neutrophils # (Auto) 5.6 TH/MM3 Lymphocytes # (Auto) 0.9 TH/MM3 Monocytes # (Auto) 0.6 TH/MM3 Eosinophils # (Auto) 0.1 TH/MM3 Basophils # (Auto) 0.3 TH/MM3 CBC Comment DIFF FINAL Differential Comment Blood Urea Nitrogen 25 MG/DL Creatinine 1.10 MG/DL Random Glucose 100 MG/DL Calcium Level 8.7 MG/DL Sodium Level 141 MEQ/L Potassium Level 4.2 MEQ/L Chloride Level 109 MEQ/L Carbon Dioxide Level 24.1 MEQ/L Anion Gap 8 MEQ/L Estimat Glomerular Filtration Rate 64 ML/MIN [facility] Medical Decision Making Medical Screen Exam Complete: Yes Emergency Medical Condition: Yes Medical Record Reviewed: Yes Interpretation(s) Laboratory Tests Test 09/18/17 07:50 09/18/17 08:13 Urine Nitrite POS (NEG) Urine Leukocyte Esterase SMALL (NEG) Urine WBC 15-19 /hpf (0-5) Urine Bacteria FEW /hpf (NONE) Neutrophils (%) (Auto) 73.3 % (16.0-70.0) Monocytes (%) (Auto) 8.6 % (0.0-8.0) Basophils (%) (Auto) 4.4 % (0.0-2.0) Lymphocytes # (Auto) 0.9 TH/MM3 (1.0-4.8) Basophils # (Auto) 0.3 TH/MM3 (0-0.2) Blood Urea Nitrogen 25 MG/DL (7-18) Chloride Level 109 MEQ/L (98-107) Estimat Glomerular Filtration Rate 64 ML/MIN (>89) Last 24 hours Impressions Abdomen X-Ray 09/18/17 0742 Signed Impressions: Service Date/Time: Monday, September 18, 2017 07:49 - CONCLUSION: No evidence of obstruction. German Carver MD Differential Diagnosis UTI versus prostate outflow obstruction versus severe constipation versus hernia Narrative Course Abdomen is fairly benign and he did have some mild suprapubic tenderness. A bladder scan shows that he had 300 cc of urine in his bladder. He was able to give us a urine sample and it appears that he has a UTI. X-ray of the abdomen did not show any signs of acute obstruction or even significant constipation. However, patient was having about the ER. He has been having difficulty with constipation, is currently on opiate pain medications which could be complicating issues with constipation. At this point, the rest of lab work is fairly unremarkable. Case was discussed with his urologist, Dr. Acosta, who states that the patient has had a procedure about 2 weeks ago, and is in and out of the office in the ER quite a bit for UTIs and other concerns. Some of the symptoms he is complaining about appears to be fairly chronic. He states that it is possible that the patient may have a procedural related UTI. In any case, he can be treated follow-up in his office. My plan would be to give him Colace for the constipation and treat his UTI. Return for any worsening in symptoms, pain, fevers, vomiting, and as needed. The plan has been discussed with the patient and he states understanding. Diagnosis Primary Impression: Urinary tract infection Additional Impression: Constipation Referrals: Wallace Mendenhall MD Med/Other Pt SpecificInfo: Prescription(s) given Scripts Docusate Sodium (Docusate Sodium) 100 Mg Cap 100 MG PO BID Y for CONSTIPATION, #20 CAP 0 Refills Prov: Nain Schmid MD 09/18/17 Nitrofurantoin Monohydrate Macrocrystals (Macrobid) 100 Mg Capsule 100 MG PO BID for Infection for 5 Days, #10 CAP 0 Refills Prov: Nain Schmid MD 09/18/17 Disposition: 01 DISCHARGE HOME Condition: Stable Nain Schmid MD Sep 18, 2017 07:46
[2017-09-18 07:57] LABS: BILIRUBIN, URINE NEG (NEG); BLOOD, URINE TRACE (NEG); GLUCOSE,URINE NEG (NEG); KETONE, URINE NEG (NEG); NITRITE,URINE POS (NEG); URINE LEUKOCYTE ESTERASE SMALL (NEG)
[2017-09-18 08:03] LABS: BACTERIA, URINE FEW /hpf; RBC, URINE 0-3 /hpf (0-3); SQUAMOUS EPITHELIAL CELL URINE 0-5 /hpf (0-5); URINE COLOR STRAW (YELLW/STRAW); WBC, URINE 15-19 /hpf (0-5)
[2017-09-18 08:16] LABS: AUTOMATED NEUTROPHIL # 5.6 TH/MM3 (1.8-7.7); BASOPHIL # 0.3 TH/MM3 (0-0.2); BASOPHIL % 4.4 % (0.0-2.0); EOSINOPHIL # 0.1 TH/MM3 (0-0.4); EOSINOPHIL % 1.3 % (0.0-4.0); HEMATOCRIT 41.7 % (39.0-51.0); HEMOGLOBIN 13.7 GM/DL (13.0-17.0); LYMPH % 12.4 % (9.0-44.0); LYMPHOCYTE # 0.9 TH/MM3 (1.0-4.8); MEAN CELL VOLUME 87.1 FL (80.0-100.0); MEAN CORPUSCULAR HEMOGLOBIN 28.6 PG (27.0-34.0); MEAN CORPUSCULAR HGB CONC 32.9 % (32.0-36.0); MEAN PLATELET VOLUME 7.2 FL (7.0-11.0); MONO % 8.6 % (0.0-8.0); MONOCYTE # 0.6 TH/MM3 (0-0.9); NEUT % 73.3 % (16.0-70.0); PLATELET COUNT 190 TH/MM3 (150-450); RED BLOOD COUNT 4.78 MIL/MM3 (4.50-5.90); RED CELL DISTRIBUTION WIDTH 14.3 % (11.6-17.2); WHITE BLOOD COUNT 7.5 TH/MM3 (4.0-11.0)
--- NOTE | 2017-09-18 08:24 | RADRPT ---
EXAM DATE/TIME: 09/18/2017 07:49 [facility] COMPARISON: No previous studies available for comparison. INDICATIONS : Increased groin and penis pain. MEDICAL HISTORY : Gastroesophageal reflux disease. Hernia, hiatal. Carcinoma, prostate SURGICAL HISTORY : Appendectomy. ENCOUNTER: Initial ACUITY: >1 year PAIN SCORE: 10/10 LOCATION: groin and penis FINDINGS: Examination of the abdomen demonstrates a normal bowel gas pattern. No free air is identified. No o rganomegaly is evident. Osseous structures are severely demineralized. Degenerative disc disease and facet arthropathy is present throughout the lumbar spine. Osseous structures otherwise appear intact . CONCLUSION: No evidence of obstruction. German Carver MD on September 18, 2017 at 8:22 Board Certified Radiologist. This report was verified electronically.
[2017-09-18 08:27] LABS: CALCIUM 8.7 MG/DL (8.5-10.1)
[2017-09-18 08:28] LABS: BICARBONATE 24.1 MEQ/L (21.0-32.0)
[2017-09-18 08:31] LABS: CREATININE 1.1 MG/DL (0.60-1.30)
[2017-09-18 08:39] VITALS: BP 145/97; PULSE 69; RESP 18; O2SAT 96
[2017-09-18] MEDS ORDERED: MACR100C2 PO (08:58)
[2017-09-18] MEDS ORDERED: DOCU100C15 PO (09:00)
== END 2017-09-18 09:37 | disposition home or self-care (01) ==
LOC: PHED 06:34
DX: N39.0 Urinary tract infection, site not specified (principal); B96.89 Other specified bacterial agents as the cause of diseases classified elsewhere; K59.00 Constipation, unspecified; M19.90 Unspecified osteoarthritis, unspecified site; K21.9 Gastro-esophageal reflux disease without esophagitis; Z85.46 Personal history of malignant neoplasm of prostate
CPT/HCPCS: 74000; 80048; 81001; 85025; 87077; 87086; 87186; 99284

== ENCOUNTER 2017-09-18 13:29 | Emergency (ER) | payer MEDICARE ==
[~2017-09-18] VITALS: Ht 180.3 cm; Wt 85.0 kg
[~2017-09-18 13:29] MED LIST changes: +DOCU100C15 PO
[2017-09-18 13:39] VITALS: BP 137/76; PULSE 81; RESP 16; TEMP 98.6; O2SAT 95
--- NOTE | 2017-09-18 15:24 | PD ---
HPI Chief Complaint: Complaint Time Seen by Provider: 14:34 Travel History International Travel<30 days: No Contact w/Intl Traveler<30days: No Traveled to known affect area: No History of Present Illness HPI patient is an 82 year old male presents to the ER for evaluation of superpubic pain. Patient was actually evaluated in the emergency department by one of my partners earlier today, diagnosed urinary tract infection and prescribed antibiotics. Patient states he has a history of prostate cancer is followed by Dr. Mendenhall for a urethral strictures, location of the treatment of his prostate cancer. He was discussed by previous provider with Dr. Mendenhall recommended outpatient therapy. Apparently there was some debate as to whether or not to place urinary catheter into the patient. He states he is able to void but states he feels like he's feeling up. He states the pain typically happens in the middle the night and is unbearable for a few moments and then resolves. He states that last night it lasted for several hours and he was unwilling to take his [place] because he's afraid he might "cover something up." He states symptoms are severe, currently resolved, suprapubic, context as above. PFSH Past Medical History Arthritis: Yes Asthma: No Autoimmune Disease: No Heart Rhythm Problems: No Cancer: Yes (PROSTATE [place] 2007) Cardiovascular Problems: No High Cholesterol: No Chemotherapy: No Chest Pain: No Congestive Heart Failure: No COPD: No Cerebrovascular Accident: No Diabetes: No Diminished Hearing: Yes GERD: Yes Genitourinary: Yes ([place] PROSTATE, URINARY RETENTION) Headaches: No Hepatitis: No Hiatal Hernia: Yes Herniated Disk: Yes Immune Disorder: No Kidney Stones: No Medical other: Yes (CHRONIC BACK PAIN) Musculoskeletal: Yes (LEFT ARM LIMITED MOVEMENT) Neurologic: Yes (DIPLOPIA) Psychiatric: No Reproductive: No Respiratory: No Immunizations Current: Yes Migraines: No Radiation Therapy: Yes Renal Failure: No Seizures: No Sickle Cell Disease: No Sleep Apnea: No Thyroid Disease: No Ulcer: No Influenza Vaccination: No Past Surgical History Abdominal Surgery: Yes (APPENDECTOMY) AICD: No Appendectomy: Yes Arteriovenous Shunt: No Cardiac Surgery: No 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) Endocrine Surgery: No Eye Surgery: No Genitourinary Surgery: No Gynecologic Surgery: No Insulin Pump: No Joint Replacement: Yes (LEFT SHOULDER, LEFT KNEE) Neurologic Surgery: Yes (LAMINECTOMY) Oral Surgery: Yes (TONSILLECTOMY) Pacemaker: No Prostatectomy: Yes (2002) Thoracic Surgery: No Tonsillectomy: Yes () Other Surgery: Yes ( 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) Social History Alcohol Use: No Tobacco Use: No Substance Use: No Allergies-Medications (Allergen,Severity, Reaction): Coded Allergies: No Known Allergies (Verified Adverse Reaction, Unknown, 09/18/17) Reported Meds & Prescriptions Reported Meds & Active Scripts Active Docusate Sodium 100 Mg Cap 100 Mg PO BID PRN Macrobid (Nitrofurantoin Monohydrate Macrocrystals) 100 Mg Capsule 100 Mg PO BID 5 Days Reported Hydrocodone-Acetaminophen 10-325 mg Tab 1 Tab PO Q6H PRN Review of Systems Except as stated in HPI: all other systems reviewed are Neg Physical Exam Narrative GENERAL: Well-developed, well-nourished, unkempt, no obvious distress. SKIN: Focused skin assessment warm/dry. HEAD: Atraumatic. Normocephalic. EYES: Pupils equal and round. No scleral icterus. No injection or drainage. ENT: No nasal bleeding or discharge. Mucous membranes pink and moist. NECK: Trachea midline. No JVD. CARDIOVASCULAR: Regular rate and rhythm. No murmur appreciated. RESPIRATORY: No accessory muscle use. Clear to auscultation. Breath sounds equal bilaterally. GASTROINTESTINAL: Abdomen soft, non-tender, nondistended. Hepatic and splenic margins not palpable. Abdominal surgical scars well-healed. MUSCULOSKELETAL: No obvious deformities. No clubbing. No cyanosis. No edema. NEUROLOGICAL: Awake and alert. No obvious cranial nerve deficits. Motor grossly within normal limits. Normal speech. PSYCHIATRIC: Appropriate mood and affect; insight and judgment normal. Data Data Last Documented VS Vital Signs Date Time Temp Pulse Resp B/P (MAP) Pulse Ox O2 Delivery O2 Flow Rate FiO2 09/18/17 13:39 98.6 81 16 137/76 (96) 95 Orders Orders Ed Poc Ultrasound (09/18/17 ) Ed Discharge Order (09/18/17 15:25) Case Management Consult (09/18/17 ) MDM Medical Decision Making Medical Screen Exam Complete: Yes Emergency Medical Condition: Yes Differential Diagnosis Chronic suprapubic pain, bladder spasms, urinary tract infection, urethral stricture, urinary retention. Narrative Course Patient roomed in the emergency department, post void residual is not indicative of indwelling Hannah catheter at this time. Review the patient's labs from earlier today are reassuring. I do not believe there is indication for advanced imaging at this time. I believe his pain is probably from bladder spasms secondary to urinary tract infection. I informed him that the treatment he was already prescribed should help with this and he needs to follow-up with Dr. sid adams. This is the end of his medical evaluation. I then had a conference with the patient my charge nurse and his ex- who drove him here. We're concerned given his unkempt appearance and the fact that he had to be wheeled back in a wheelchair regarding his ability to care for himself. The patient states he is able to care for himself has food at home and is able to get himself. He states his ex- lives down the street and she helped him get around as well. At this time the patient states he would never go to a residential, his ex- states that his house is in disarray. He is alert and awake and oriented and adamantly declines admission to the hospital for social reasons. His ex- is willing to take him home at this time. I informed the patient that I would ask for home health evaluation and social work evaluation. My charge nurse has notified DCF of this case as well. At this time because his is willing to take him home he is not greatly disabled nor threat to himself or to others. She states that she does indeed live down the road from him. Diagnosis Primary Impression: Urinary tract infection Additional Impression: Bladder spasms Disposition: 01 DISCHARGE HOME Condition: Stable Jarrett Bose MD Sep 18, 2017 15:24
--- NOTE | 2017-09-18 15:25 | HHI.FF ---
Face to Face Verification Diagnosis: (1) Back pain (2) Prostate CA Home Health Nursing Order: Signs/symptoms of disease process [place] Order: To Evaluate: Living conditions/environment, Support services Order: To Provide: Long range planning, Community services I have seen patient Josemanuel AhnJr cande on 09/18/17. My clinical findings support the need for the requested home health care services because: Ltd mobility - disease progression Limited ability to care for self High risk of falls I certify that my clinical findings support that this patient is homebound because: Unsteady gait/balance Unsafe to leave home unassisted Jarrett Bose MD Sep 18, 2017 15:25
== END 2017-09-18 15:46 | disposition home or self-care (01) ==
LOC: PHED 13:29
DX: N39.0 Urinary tract infection, site not specified (principal); N32.89 Other specified disorders of bladder; M19.90 Unspecified osteoarthritis, unspecified site; K21.9 Gastro-esophageal reflux disease without esophagitis; Z85.46 Personal history of malignant neoplasm of prostate
CPT/HCPCS: 99284

== ENCOUNTER 2017-09-29 18:24 | Emergency (ER) | payer MEDICARE ==
[~2017-09-29] VITALS: Ht 182.9 cm; Wt 83.9 kg
[2017-09-29 18:29] VITALS: BP 159/91; PULSE 90; RESP 16; O2SAT 94
[2017-09-29] MEDS ORDERED: ONDANSETRON HCL 4 MG/2 ML VIAL IV PUSH ONE (18:45)
[2017-09-29] MEDS ORDERED: SODIUM CHLORIDE 0.9% FLUSH 10 ML FLUSH IVF PRN (18:45)
[2017-09-29] MEDS ORDERED: SODIUM CHLOR 0.9% 1000 ML INJ 1,000 ML IV ONE (18:45)
[2017-09-29] MEDS ORDERED: HYDROmorphone HCL PF 2 MG/ML VIAL IV PUSH ONE ×2 (18:45→20:00)
[2017-09-29] MEDS ORDERED: KETOROLAC TROMETHAMINE 30 MG/ML (IVP) VIAL IV PUSH ONE (18:45)
--- NOTE | 2017-09-29 18:51 | PD ---
HPI Chief Complaint: Complaint Time Seen by Provider: 18:45 Travel History International Travel<30 days: No Contact w/Intl Traveler<30days: No Traveled to known affect area: No History of Present Illness HPI Patient presents with severe bilateral inguinal pain. Reports a extensive history of kidney stones with scarring and he urethral strictures as well as hydronephrosis. Scheduled for a procedure on Sunday with his urologist Dr. lau on today. States he is on Flomax. 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 States he is run out of pain medications. Pain is colicky described as 12 out of 10 by the patient. Most recent CT scan done approximately one month ago. Denies any vomiting, mild nausea. Denies any history of heart failure. Difficult to obtain an accurate a history secondary to current pain status. PFSH Past Medical History Arthritis: Yes Asthma: No Autoimmune Disease: No Heart Rhythm Problems: No Cancer: Yes (PROSTATE [place] 2007) Cardiovascular Problems: No High Cholesterol: No Chemotherapy: No Chest Pain: No Congestive Heart Failure: No COPD: No Cerebrovascular Accident: No Diabetes: No Diminished Hearing: Yes GERD: Yes Genitourinary: Yes ([place] PROSTATE, URINARY RETENTION) Headaches: No Hepatitis: No Hiatal Hernia: Yes Herniated Disk: Yes Immune Disorder: No Kidney Stones: No Musculoskeletal: Yes (LEFT ARM LIMITED MOVEMENT) Neurologic: Yes (DIPLOPIA) Psychiatric: No Reproductive: No Respiratory: No Immunizations Current: Yes Migraines: No Radiation Therapy: Yes Renal Failure: No Seizures: No Sickle Cell Disease: No Sleep Apnea: No Thyroid Disease: No Ulcer: No Past Surgical History Abdominal Surgery: Yes (APPENDECTOMY) AICD: No Appendectomy: Yes Arteriovenous Shunt: No Cardiac Surgery: No 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) Endocrine Surgery: No Eye Surgery: No Genitourinary Surgery: No Gynecologic Surgery: No Insulin Pump: No Joint Replacement: Yes (LEFT SHOULDER, LEFT KNEE) Neurologic Surgery: Yes (LAMINECTOMY) Oral Surgery: Yes (TONSILLECTOMY) Pacemaker: No Prostatectomy: Yes (2002) Thoracic Surgery: No Tonsillectomy: Yes () Other Surgery: Yes ( 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) Social History Alcohol Use: No Tobacco Use: No Substance Use: No Allergies-Medications (Allergen,Severity, Reaction): Coded Allergies: No Known Allergies (Verified Adverse Reaction, Unknown, 09/29/17) Reported Meds & Prescriptions Reported Meds & Active Scripts Active Docusate Sodium 100 Mg Cap 100 Mg PO BID PRN Macrobid (Nitrofurantoin Monohydrate Macrocrystals) 100 Mg Capsule 100 Mg PO BID 5 Days Reported Hydrocodone-Acetaminophen 10-325 mg Tab 1 Tab PO Q6H PRN Review of Systems General / Constitutional: No: Fever Eyes: No: Visual changes HENT: No: Headaches Cardiovascular: No: Chest Pain or Discomfort Respiratory: No: Shortness of Breath Gastrointestinal: No: Abdominal Pain Genitourinary: Positive: Decreased Urinary Output, Pelvic Pain, No: Dysuria Musculoskeletal: No: Pain Skin: No Rash Neurologic: No: Weakness Psychiatric: No: Depression Endocrine: No: Polydipsia Hematologic/Lymphatic: No: Easy Bruising Physical Exam Narrative GENERAL: Well-nourished, well-developed patient. SKIN: Focused skin assessment warm/dry. HEAD: Normocephalic. EYES: No scleral icterus. No injection or drainage. NECK: Supple, trachea midline. No JVD or lymphadenopathy. CARDIOVASCULAR: Regular rate and rhythm without murmurs, gallops, or rubs. RESPIRATORY: Breath sounds equal bilaterally. No accessory muscle use. GASTROINTESTINAL: Abdomen soft, non-tender, nondistended. Denies flank pain, pain is localized to bilateral inguinal region. MUSCULOSKELETAL: No cyanosis, or edema. BACK: Nontender without obvious deformity. No CVA tenderness. Data Data Last Documented VS Vital Signs Date Time Temp Pulse Resp B/P (MAP) Pulse Ox O2 Delivery O2 Flow Rate FiO2 09/29/17 18:29 90 16 159/91 (113) 94 Orders Orders Complete Blood Count With Diff (09/29/17 18:45) Comprehensive Metabolic Panel (09/29/17 18:45) Urinalysis - C+S If Indicated (09/29/17 18:45) Ct Abd/Pel W/O Iv Contrast (09/29/17 18:45) Ecg Monitoring (09/29/17 18:45) Iv Access Insert/Monitor (09/29/17 18:45) Ketorolac Inj (Toradol Inj) (09/29/17 18:45) Ondansetron Inj (Zofran Inj) (09/29/17 18:45) Sodium Chloride 0.9% Flush (Ns Flush) (09/29/17 18:45) Sodium Chlor 0.9% 1000 Ml Inj (Ns 1000 M (09/29/17 18:45) Hydromorphone Pf Inj (Dilaudid Pf Inj) (09/29/17 18:45) Labs Laboratory Tests Test 09/29/17 18:55 MDM Medical Decision Making Medical Screen Exam Complete: Yes Emergency Medical Condition: Yes Differential Diagnosis Nephrolithiasis, hydronephrosis, UTI Narrative Course Assessment and plan discussed with patient and at bedside. Kidney stone workup initiated. Physician Communication Physician Communication Case discussed and care transferred to Samuel Perez MD Sep 29, 2017 18:51
[2017-09-29 19:02] LABS: AUTOMATED NEUTROPHIL # 6.8 TH/MM3 (1.8-7.7); BASOPHIL # 0.1 TH/MM3 (0-0.2); BASOPHIL % 0.9 % (0.0-2.0); EOSINOPHIL # 0.1 TH/MM3 (0-0.4); EOSINOPHIL % 1.5 % (0.0-4.0); HEMATOCRIT 45.4 % (39.0-51.0); HEMOGLOBIN 14.5 GM/DL (13.0-17.0); LYMPH % 10.9 % (9.0-44.0); LYMPHOCYTE # 0.9 TH/MM3 (1.0-4.8); MEAN CELL VOLUME 89.1 FL (80.0-100.0); MEAN CORPUSCULAR HEMOGLOBIN 28.4 PG (27.0-34.0); MEAN CORPUSCULAR HGB CONC 31.9 % (32.0-36.0); MEAN PLATELET VOLUME 7.2 FL (7.0-11.0); MONO % 6.2 % (0.0-8.0); MONOCYTE # 0.5 TH/MM3 (0-0.9); NEUT % 80.5 % (16.0-70.0); PLATELET COUNT 235 TH/MM3 (150-450); RED BLOOD COUNT 5.09 MIL/MM3 (4.50-5.90); RED CELL DISTRIBUTION WIDTH 14.7 % (11.6-17.2); WHITE BLOOD COUNT 8.4 TH/MM3 (4.0-11.0)
[2017-09-29 19:06] LABS: CHLORIDE 106 MEQ/L (98-107); SODIUM (NA) 139 MEQ/L (136-145)
[2017-09-29 19:09] LABS: ALBUMIN 3.7 GM/DL (3.4-5.0); BLOOD UREA NITROGEN 33 MG/DL (7-18); CALCIUM 9.1 MG/DL (8.5-10.1); GLUCOSE,RANDOM 108 MG/DL (74-106)
[2017-09-29 19:12] LABS: ALT (GPT) 19 U/L (12-78); AST (GOT) 19 U/L (15-37); GLOMERULAR FILTRATION RATE 64 ML/MIN (>89)
[2017-09-29 19:14] VITALS: BP 162/79; PULSE 87; RESP 20; O2SAT 96
[2017-09-29 19:14] LABS: TOTAL BILIRUBIN ADULT 0.4 MG/DL (0.2-1.0)
[2017-09-29 19:15] LABS: ALKALINE PHOSPHATASE 103 U/L (45-117)
[2017-09-29] MEDS ORDERED: ONDANSETRON HCL 4 MG/2 ML VIAL IV ONE (20:00)
[2017-09-29 20:08] VITALS: RESP 16
[2017-09-29 20:13] LABS: BILIRUBIN, URINE NEG (NEG); BLOOD, URINE MOD (NEG); GLUCOSE,URINE NEG (NEG); KETONE, URINE NEG (NEG); NITRITE,URINE POS (NEG); URINE LEUKOCYTE ESTERASE LARGE (NEG)
[2017-09-29] MEDS ORDERED: SODIUM CHLOR 0.9% 1000 ML INJ 1,000 ML IV SCH (20:15)
[2017-09-29 20:19] LABS: BACTERIA, URINE MANY /hpf; SQUAMOUS EPITHELIAL CELL URINE 0-5 /hpf (0-5); URINE COLOR YELLOW (YELLW/STRAW); WBC, URINE 100-200 /hpf (0-5)
--- NOTE | 2017-09-29 20:25 | RADRPT ---
EXAM DATE/TIME: 09/29/2017 19:23 [facility] COMPARISON: CT ABDOMEN & PELVIS W CONTRAST, May 23, 2017, 2:32. CT ABDOMEN & PELVIS W/O CONTRAST, August, 9:30. INDICATIONS : Urinary retention. Bladder and bilat inguinal pain. ORAL CONTRAST: No oral contrast ingested. RADIATION DOSE: 23.89 CTDIvol (mGy) MEDICAL HISTORY : Carcinoma, prostate. Gastroesophageal reflux disease. Renal calculi. SURGICAL HISTORY : Prostatectomy. Fusion, cervical.Appendectomy. ENCOUNTER: Initial ACUITY: 1 day PAIN SCALE: 10/10 LOCATION: Bilateral inguinal TECHNIQUE: Volumetric scanning of the abdomen and pelvis was performed. Using automated exposure control and ad justment of the mA and/or kV according to patient size, radiation dose was kept as low as reasonably achievable to obtain optimal diagnostic quality images. DICOM format image data is available electro nically for review and comparison. FINDINGS: LOWER LUNGS: The visualized lower lungs are clear. LIVER: Visualized portion liver is unremarkable. SPLEEN: Normal size without lesion. PANCREAS: Within normal limits. KIDNEYS: There is mild distention of the renal collecting systems. Right kidney is otherwise unremarkable. The re are no focal cortical abnormalities or evidence of nephrolithiasis. The left kidney demonstrates a duplex collecting system. A cluster of 3 or 4 calculi are identif ied in the upper pole left kidney. The largest nodes measures 5 mm. A 5.4 cm cyst is seen off the pos terior cortex of the upper pole. 4.8 mm calculus is identified in the lower pole of the left kidney. ADRENAL GLANDS: Within normal limits. VASCULAR: There is no aortic aneurysm. BOWEL/MESENTERY: Numerous diverticula are seen throughout the sigmoid colon. There are no active inflammatory changes. ABDOMINAL WALL: Within normal limits. RETROPERITONEUM: There is no lymphadenopathy. BLADDER: No wall thickening or mass. REPRODUCTIVE: Within normal limits. INGUINAL: There is no lymphadenopathy or hernia. MUSCULOSKELETAL: Mass degenerative disease is present throughout the lumbar spine. CONCLUSION: 1. Mild bilateral hydronephrosis without clear evidence of obstructing process. 2. Nonobstructing left renal calculi 3. Duplex left renal collecting system. 4. Left renal cyst. 5. Uncomplicated sigmoid diverticulosis. German Carver MD on September 29, 2017 at 20:13 Board Certified Radiologist. This report was verified electronically.
[2017-09-29] MEDS ORDERED: HYDR-3583 PO (20:43)
--- NOTE | 2017-09-29 20:44 | PD ---
Physical Exam Time Seen by Provider: 20:[address] Darden left me with this patient to check the CT scan and make a disposition. He has an appointment on Sunday with Dr. gutierrez. He ran out of his hydrocodone . Data Data Last Documented VS Vital Signs Date Time Temp Pulse Resp B/P (MAP) Pulse Ox O2 Delivery O2 Flow Rate FiO2 09/29/17 20:08 16 09/29/17 19:14 87 162/79 (106) 96 Room Air Orders Orders Complete Blood Count With Diff (09/29/17 18:45) Comprehensive Metabolic Panel (09/29/17 18:45) Urinalysis - C+S If Indicated (09/29/17 18:45) Ct Abd/Pel W/O Iv Contrast (09/29/17 18:45) Ecg Monitoring (09/29/17 18:45) Iv Access Insert/Monitor (09/29/17 18:45) Ketorolac Inj (Toradol Inj) (09/29/17 18:45) Ondansetron Inj (Zofran Inj) (09/29/17 18:45) Sodium Chloride 0.9% Flush (Ns Flush) (09/29/17 18:45) Sodium Chlor 0.9% 1000 Ml Inj (Ns 1000 M (09/29/17 18:45) Hydromorphone Pf Inj (Dilaudid Pf Inj) (09/29/17 18:45) Hydromorphone Pf Inj (Dilaudid Pf Inj) (09/29/17 20:00) Ondansetron Inj (Zofran Inj) (09/29/17 20:00) Sodium Chlor 0.9% 1000 Ml Inj (Ns 1000 M (09/29/17 20:15) Urine Culture (09/29/17 20:00) Labs Laboratory Tests Test 09/29/17 18:55 09/29/17 20:00 White Blood Count 8.4 TH/MM3 Red Blood Count 5.09 MIL/MM3 Hemoglobin 14.5 GM/DL Hematocrit 45.4 % Mean Corpuscular Volume 89.1 FL Mean Corpuscular Hemoglobin 28.4 PG Mean Corpuscular Hemoglobin Concent 31.9 % Red Cell Distribution Width 14.7 % Platelet Count 235 TH/MM3 Mean Platelet Volume 7.2 FL Neutrophils (%) (Auto) 80.5 % Lymphocytes (%) (Auto) 10.9 % Monocytes (%) (Auto) 6.2 % Eosinophils (%) (Auto) 1.5 % Basophils (%) (Auto) 0.9 % Neutrophils # (Auto) 6.8 TH/MM3 Lymphocytes # (Auto) 0.9 TH/MM3 Monocytes # (Auto) 0.5 TH/MM3 Eosinophils # (Auto) 0.1 TH/MM3 Basophils # (Auto) 0.1 TH/MM3 CBC Comment DIFF FINAL Differential Comment Blood Urea Nitrogen 33 MG/DL Creatinine 1.10 MG/DL Random Glucose 108 MG/DL Total Protein 8.0 GM/DL Albumin 3.7 GM/DL Calcium Level 9.1 MG/DL Alkaline Phosphatase 103 U/L Aspartate Amino Transf (AST/SGOT) 19 U/L Alanine Aminotransferase (ALT/SGPT) 19 U/L Total Bilirubin 0.4 MG/DL Sodium Level 139 MEQ/L Potassium Level 4.3 MEQ/L Chloride Level 106 MEQ/L Carbon Dioxide Level 25.0 MEQ/L Anion Gap 8 MEQ/L Estimat Glomerular Filtration Rate 64 ML/MIN Urine Color YELLOW Urine Turbidity CLOUDY Urine pH 6.0 Urine Specific [place] 1.020 Urine Protein 30 mg/dL Urine Glucose (UA) NEG mg/dL Urine Ketones NEG mg/dL Urine Occult Blood MOD Urine Nitrite POS Urine Bilirubin NEG Urine Leukocyte Esterase LARGE Urine RBC 4-9 /hpf Urine WBC 100-200 /hpf Urine Squamous Epithelial Cells 0-5 /hpf Urine Bacteria MANY /hpf Microscopic Urinalysis Comment CULTURE INDICATED MDM Medical Record Reviewed: Yes Supervised Visit with LISA: Yes Interpretation(s) The CT abdomen/pelvis without IV contrast shows mild bilateral hydronephrosis without clear evidence of obstructing process. Differential Diagnosis Ureteral stricture, ureteral stones, hydronephrosis, UTI Narrative Course The patient has ureteral stricture with hydronephrosis. No obvious stones are seen. It is now 8:42 PM and the patient is sleeping. Plan: The patient will have his hydrocodone No. 10 with acetaminophen refilled. Med/Other Pt SpecificInfo: Prescription(s) given Scripts Hydrocodone-Acetaminophen (Hydrocodone-Acetaminophen) 10-325 mg Tab 1 TAB PO Q4H Y for PAIN, #28 TAB 0 Refills Prov: Ankush Saha MD 09/29/17 Disposition: 01 DISCHARGE HOME Condition: Stable Ankush Saha MD Sep 29, 2017 20:43
[2017-09-29] MEDS ORDERED: MACR100C2 PO (20:51)
[2017-09-29] MEDS ORDERED: NITROFURANTOIN MONOHYD MACROCR 100 MG CAP PO ONE (21:00)
[2017-09-29 21:08] VITALS: BP 150/76
== END 2017-09-29 21:46 | disposition home or self-care (01) ==
LOC: PHED 18:24
DX: N13.1 Hydronephrosis with ureteral stricture, not elsewhere classified (principal); N39.0 Urinary tract infection, site not specified; B96.20 Unspecified Escherichia coli [E. coli] as the cause of diseases classified elsewhere; K21.9 Gastro-esophageal reflux disease without esophagitis; Z87.442 Personal history of urinary calculi; Z85.46 Personal history of malignant neoplasm of prostate
CPT/HCPCS: 74176; 80053; 81001; 85025; 87077; 87086; 87186; 96361; 96374; 96375; 96376; 99285; J1170; J1885; J2405; J7030

== ENCOUNTER 2017-10-22 13:48 | Observation (INO) | payer MEDICARE ==
[~2017-10-22] VITALS: Ht 180.3 cm; Wt 85.0 kg
[2017-10-22 13:49] VITALS: BP 154/78; PULSE 79; RESP 24; TEMP 97.8; O2SAT 97
[2017-10-22 15:17] LABS: AUTOMATED NEUTROPHIL # 5.1 TH/MM3 (1.8-7.7); BASOPHIL # 0.1 TH/MM3 (0-0.2); BASOPHIL % 0.8 % (0.0-2.0); EOSINOPHIL # 0.1 TH/MM3 (0-0.4); EOSINOPHIL % 1.5 % (0.0-4.0); HEMATOCRIT 41.4 % (39.0-51.0); HEMOGLOBIN 14.5 GM/DL (13.0-17.0); LYMPH % 12.9 % (9.0-44.0); LYMPHOCYTE # 0.9 TH/MM3 (1.0-4.8); MEAN CELL VOLUME 86.3 FL (80.0-100.0); MEAN CORPUSCULAR HEMOGLOBIN 30.3 PG (27.0-34.0); MEAN CORPUSCULAR HGB CONC 35.1 % (32.0-36.0); MEAN PLATELET VOLUME 7.7 FL (7.0-11.0); MONOCYTE # 0.5 TH/MM3 (0-0.9); NEUT % 76.8 % (16.0-70.0); PLATELET COUNT 190 TH/MM3 (150-450); RED BLOOD COUNT 4.79 MIL/MM3 (4.50-5.90); RED CELL DISTRIBUTION WIDTH 14.6 % (11.6-17.2); WHITE BLOOD COUNT 6.6 TH/MM3 (4.0-11.0)
[2017-10-22 15:34] LABS: ALT (GPT) 22 U/L (12-78); AST (GOT) 16 U/L (15-37); BICARBONATE 27.4 MEQ/L (21.0-32.0); BLOOD UREA NITROGEN 24 MG/DL (7-18); CHLORIDE 108 MEQ/L (98-107); CREATININE 1.11 MG/DL (0.60-1.30); GLOMERULAR FILTRATION RATE 63 ML/MIN (>89); GLUCOSE,RANDOM 94 MG/DL (74-106); PROTHROMBIN TIME - PATIENT 10.4 SEC (9.8-11.6); SODIUM (NA) 143 MEQ/L (136-145)
[2017-10-22 15:37] LABS: ALKALINE PHOSPHATASE 104 U/L (45-117); TOTAL BILIRUBIN ADULT 0.3 MG/DL (0.2-1.0); TOTAL PROTEIN 8.1 GM/DL (6.4-8.2)
[2017-10-22] MEDS ORDERED: HYDROmorphone HCL PF 1 MG/ML VIAL IVS ONE (16:00)
[2017-10-22] MEDS ORDERED: HYDROmorphone HCL PF 2 MG/ML VIAL IV ONE (16:15)
[2017-10-22] MEDS ORDERED: SODIUM CHLORID 0.9% 500 ML INJ 500 ML IV ONE (16:30)
[2017-10-22] MEDS ORDERED: TAMSULOSIN HCL 0.4 MG CAP PO ONE (16:30)
--- NOTE | 2017-10-22 16:34 | PD ---
HPI Chief Complaint: Complaint Time Seen by Provider: 15:37 Travel History International Travel<30 days: No Contact w/Intl Traveler<30days: No Traveled to known affect area: No History of Present Illness HPI 81-year-old male with PMH of kidney stones, urethral stones presents to the ED for evaluation of less than 12 hour history of 10/10 pain in the right groin and penis. Pain is colicky, intermittent. No alleviating or exacerbating factors are reported. He states that the pain is very similar to previous episodes of ureteral and urethral stones. Patient denies fever, chills, nausea , vomiting, changes in bowel habits, dysuria, hematuria. He states that he was followed by Dr. De Los Santos but now has an appointment to see a urologist at the [facility]. States last urination was a few hours ago. He is not currently taking Flomax or narcotic pain medications. PFSH Past Medical History Arthritis: Yes Asthma: No Autoimmune Disease: No Heart Rhythm Problems: No Cancer: Yes (PROSTATE [place] 2007) Cardiovascular Problems: No High Cholesterol: No Chemotherapy: No Chest Pain: No Congestive Heart Failure: No COPD: No Cerebrovascular Accident: No Diabetes: No Diminished Hearing: Yes GERD: Yes Genitourinary: Yes ([place] PROSTATE, URINARY RETENTION) Headaches: No Hepatitis: No Hiatal Hernia: Yes Herniated Disk: Yes Immune Disorder: No Kidney Stones: No Medical other: Yes (CHRONIC BACK PAIN) Musculoskeletal: Yes (LEFT ARM LIMITED MOVEMENT) Neurologic: Yes (DIPLOPIA) Psychiatric: No Reproductive: No Respiratory: No Immunizations Current: Yes Migraines: No Radiation Therapy: Yes Renal Failure: No Seizures: No Sickle Cell Disease: No Sleep Apnea: No Thyroid Disease: No Ulcer: No Tetanus Vaccination: > 5 Years Influenza Vaccination: No Past Surgical History Abdominal Surgery: Yes (APPENDECTOMY) AICD: No Appendectomy: Yes Arteriovenous Shunt: No Cardiac Surgery: No 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) Endocrine Surgery: No Eye Surgery: No Genitourinary Surgery: No Gynecologic Surgery: No Insulin Pump: No Joint Replacement: Yes (LEFT SHOULDER, LEFT KNEE) Neurologic Surgery: Yes (LAMINECTOMY) Oral Surgery: Yes (TONSILLECTOMY) Pacemaker: No Prostatectomy: Yes (2002) Thoracic Surgery: No Tonsillectomy: Yes () Other Surgery: Yes ( 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 SKIN: Focused skin assessment warm/dry. HEAD: Normocephalic. EYES: No scleral icterus. No injection or drainage. NECK: Supple, trachea midline. No JVD or lymphadenopathy. CARDIOVASCULAR: Regular rate and rhythm without murmurs, gallops, or rubs. RESPIRATORY: Breath sounds clear and equal bilaterally. No accessory muscle use. GASTROINTESTINAL: Abdomen soft, nondistended. Positive left-sided flank and groin pain. No palpable masses. GENITOURINARY: Circumcised. Testes descended bilaterally without evidence of rotation. No lesions or erythema. No urethral discharge. Tender to palpation of the distal third of the penile shaft. MUSCULOSKELETAL: No cyanosis, or edema. BACK: Nontender without obvious deformity. No CVA tenderness. Data Data Last Documented VS Vital Signs Date Time Temp Pulse Resp B/P (MAP) Pulse Ox O2 Delivery O2 Flow Rate FiO2 10/22/17 21:31 10/22/17 21:14 98.0 76 24 97 Room Air Orders Orders Complete Blood Count With Diff (10/22/17 14:12) Comprehensive Metabolic Panel (10/22/17 14:12) Prothrombin Time / Inr (Pt) (10/22/17 14:12) Act Partial Throm Time (Ptt) (10/22/17 14:12) Urinalysis - C+S If Indicated (10/22/17 14:12) Ct Abd/Pel W/O Iv Contrast (10/22/17 15:48) Iv Access Insert/Monitor (10/22/17 15:48) Hydromorphone Pf Inj (Dilaudid Pf Inj) (10/22/17 16:00) Cath For Specimen (10/22/17 15:48) Hydromorphone Pf Inj (Dilaudid Pf Inj) (10/22/17 16:15) Tamsulosin (Flomax) (10/22/17 16:30) Sodium Chlorid 0.9% 500 Ml Inj (Ns 500 M (10/22/17 16:30) Ketorolac Inj (Toradol Inj) (10/22/17 16:45) Lidocaine 2% Jelly (Xylocaine 2% Jelly) (10/22/17 18:15) Diet Npo (10/23/17 Breakfast) ^ Other Nursing Orders (10/22/17 20:46) Labs Laboratory Tests Test 10/22/17 14:27 White Blood Count 6.6 TH/MM3 Red Blood Count 4.79 MIL/MM3 Hemoglobin 14.5 GM/DL Hematocrit 41.4 % Mean Corpuscular Volume 86.3 FL Mean Corpuscular Hemoglobin 30.3 PG Mean Corpuscular Hemoglobin Concent 35.1 % Red Cell Distribution Width 14.6 % Platelet Count 190 TH/MM3 Mean Platelet Volume 7.7 FL Neutrophils (%) (Auto) 76.8 % Lymphocytes (%) (Auto) 12.9 % Monocytes (%) (Auto) 8.0 % Eosinophils (%) (Auto) 1.5 % Basophils (%) (Auto) 0.8 % Neutrophils # (Auto) 5.1 TH/MM3 Lymphocytes # (Auto) 0.9 TH/MM3 Monocytes # (Auto) 0.5 TH/MM3 Eosinophils # (Auto) 0.1 TH/MM3 Basophils # (Auto) 0.1 TH/MM3 CBC Comment DIFF FINAL Differential Comment Prothrombin Time 10.4 SEC Prothromb Time International Ratio 1.0 RATIO Activated Partial Thromboplast Time 28.8 SEC Blood Urea Nitrogen 24 MG/DL Creatinine 1.11 MG/DL Random Glucose 94 MG/DL Total Protein 8.1 GM/DL Albumin 4.0 GM/DL Calcium Level 9.0 MG/DL Alkaline Phosphatase 104 U/L Aspartate Amino Transf (AST/SGOT) 16 U/L Alanine Aminotransferase (ALT/SGPT) 22 U/L Total Bilirubin 0.3 MG/DL Sodium Level 143 MEQ/L Potassium Level 4.2 MEQ/L Chloride Level 108 MEQ/L Carbon Dioxide Level 27.4 MEQ/L Anion Gap 8 MEQ/L Estimat Glomerular Filtration Rate 63 ML/MIN MDM Medical Decision Making Medical Screen Exam Complete: Yes Emergency Medical Condition: Yes Differential Diagnosis UTI versus BPH versus obstruction versus urethral stone versus nephroureterolithiasis versus other Narrative Course 81-year-old male with PMH of kidney stones, urethral stones presents to the ED for evaluation of less than 12 hour history of 10/10 pain in the right groin and penis. Pain is colicky, intermittent, very similar to previous episodes of ureteral and urethral stones. States last urination was a few hours ago. He is not currently taking Flomax or narcotic pain medications. Patient is hypertensive on presentation. Physical exam reveals a white male in no acute distress. Positive tenderness to palpation of the left groin, suprapubic area and distal third of the shaft of the penis. The patient was administered IV Toradol, Dilaudid and 500ml fluid bolus. He was administered Flomax by mouth. CBC unremarkable. BUN elevated at 26. CT abdomen/pelvis reveals no stone. Dr. Bose spoke with Dr. De La Cruz who recommended Hannah insertion and will see the patient on outpatient basis. Nursing staff tried various catheters and were unsuccessful with insertion. I spoke with Dr. De La Cruz again. He will see the patient in the ED. Dr. De La Cruz was also unsuccessful in placing Hannah catheter and will take the patient to the OR for cystoscopy and further evaluation. See his note for disposition. Diagnosis Primary Impression: Urinary obstruction, unspecified Paulette Carrillo Oct 22, 2017 16:34
--- NOTE | 2017-10-22 16:42 | RADRPT ---
EXAM DATE/TIME: 10/22/2017 16:17 [facility] COMPARISON: CT ABDOMEN & PELVIS W/O CONTRAST, September 29, 2017, 19:23. INDICATIONS : Patient complains of pain in back and abdomen. ORAL CONTRAST: No oral contrast ingested. RADIATION DOSE: 8054 CTDIvol (mGy) ; Patient motion; Patient positioning MEDICAL HISTORY : Carcinoma, prostate. SURGICAL HISTORY : Appendectomy. Prostatectomy. ENCOUNTER: Initial ACUITY: 1 day PAIN SCALE: 10/10 LOCATION: abdomen TECHNIQUE: Volumetric scanning of the abdomen and pelvis was performed. Using automated exposure control and ad justment of the mA and/or kV according to patient size, radiation dose was kept as low as reasonably achievable to obtain optimal diagnostic quality images. DICOM format image data is available electro nically for review and comparison. FINDINGS: LOWER LUNGS: The visualized lower lungs are stable and clear with mild stable scarring at the right lung base and calcified granuloma. LIVER: Homogeneous density without lesion. There is no dilation of the biliary tree. No calcified gallston es. SPLEEN: Normal size without lesion. PANCREAS: Within normal limits. KIDNEYS: The right kidney remains stable and unremarkable appearance. Left kidney and demonstrates a duplicate d collecting system with multiple nonobstructing renal calculi and simple cysts. There is no solid ma ss or hydronephrosis. ADRENAL GLANDS: Within normal limits. VASCULAR: There is no aortic aneurysm. BOWEL/MESENTERY: No oral contrast was given limiting the sensitivity exam. Extensive diverticulosis is again noted gre atest involving the sigmoid colon. There is a nonobstructive bowel gas pattern. There is no free air or fluid. ABDOMINAL WALL: Within normal limits. RETROPERITONEUM: There is no lymphadenopathy. BLADDER: No wall thickening or mass. REPRODUCTIVE: Within normal limits. INGUINAL: There is no lymphadenopathy or hernia. MUSCULOSKELETAL: Osteopenia, degenerative change and scoliosis are present. CONCLUSION: 1. Extensive diverticulosis is again noted with no definite inflammatory change or obstruction. 2. 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 3. Unremarkable gallbladder. Sky Avalos MD on October 22, 2017 at 16:33 Board Certified Radiologist. This report was verified electronically.
[2017-10-22] MEDS ORDERED: KETOROLAC TROMETHAMINE 30 MG/ML (IVP) VIAL IV PUSH ONE (16:45)
--- NOTE | 2017-10-22 17:28 | PD ---
Data Data Last Documented VS Vital Signs Date Time Temp Pulse Resp B/P (MAP) Pulse Ox O2 Delivery O2 Flow Rate FiO2 10/22/17 23:15 75 13 134/68 (90) 96 Nasal Cannula 2 10/22/17 23:00 97.7 Orders Orders Complete Blood Count With Diff (10/22/17 14:12) Comprehensive Metabolic Panel (10/22/17 14:12) Prothrombin Time / Inr (Pt) (10/22/17 14:12) Act Partial Throm Time (Ptt) (10/22/17 14:12) Urinalysis - C+S If Indicated (10/22/17 14:12) Ct Abd/Pel W/O Iv Contrast (10/22/17 15:48) Iv Access Insert/Monitor (10/22/17 15:48) Hydromorphone Pf Inj (Dilaudid Pf Inj) (10/22/17 16:00) Cath For Specimen (10/22/17 15:48) Hydromorphone Pf Inj (Dilaudid Pf Inj) (10/22/17 16:15) Tamsulosin (Flomax) (10/22/17 16:30) Sodium Chlorid 0.9% 500 Ml Inj (Ns 500 M (10/22/17 16:30) Ketorolac Inj (Toradol Inj) (10/22/17 16:45) Lidocaine 2% Jelly (Xylocaine 2% Jelly) (10/22/17 18:15) ^ Other Nursing Orders (10/22/17 20:46) Urinary Catheter Management ALDO.Q8H (10/22/17 22:59) Fentanyl Inj (Fentanyl Inj) (10/22/17 23:03) Vital Signs (Adult) ALDO.Q4H (10/22/17 22:59) Diet Regular Basic (10/23/17 Breakfast) ^ Discharge Disposition (10/22/17 22:59) Place In Observation (10/22/17 ) Dext 5%-Nacl 0.45% 1000 Ml Inj (D5w-09/25 (10/22/17 23:00) Ondansetron Inj (Zofran Inj) (10/22/17 23:00) Oxycodone-Acetamin 5-325 Mg (Percocet (10/22/17 23:00) Temazepam (Restoril) (10/22/17 23:00) [facility] – [place], [place] Nursing Information (10/22/17 23:15) Labs Laboratory Tests Test 10/22/17 14:27 White Blood Count 6.6 TH/MM3 Red Blood Count 4.79 MIL/MM3 Hemoglobin 14.5 GM/DL Hematocrit 41.4 % Mean Corpuscular Volume 86.3 FL Mean Corpuscular Hemoglobin 30.3 PG Mean Corpuscular Hemoglobin Concent 35.1 % Red Cell Distribution Width 14.6 % Platelet Count 190 TH/MM3 Mean Platelet Volume 7.7 FL Neutrophils (%) (Auto) 76.8 % Lymphocytes (%) (Auto) 12.9 % Monocytes (%) (Auto) 8.0 % Eosinophils (%) (Auto) 1.5 % Basophils (%) (Auto) 0.8 % Neutrophils # (Auto) 5.1 TH/MM3 Lymphocytes # (Auto) 0.9 TH/MM3 Monocytes # (Auto) 0.5 TH/MM3 Eosinophils # (Auto) 0.1 TH/MM3 Basophils # (Auto) 0.1 TH/MM3 CBC Comment DIFF FINAL Differential Comment Prothrombin Time 10.4 SEC Prothromb Time International Ratio 1.0 RATIO Activated Partial Thromboplast Time 28.8 SEC Blood Urea Nitrogen 24 MG/DL Creatinine 1.11 MG/DL Random Glucose 94 MG/DL Total Protein 8.1 GM/DL Albumin 4.0 GM/DL Calcium Level 9.0 MG/DL Alkaline Phosphatase 104 U/L Aspartate Amino Transf (AST/SGOT) 16 U/L Alanine Aminotransferase (ALT/SGPT) 22 U/L Total Bilirubin 0.3 MG/DL Sodium Level 143 MEQ/L Potassium Level 4.2 MEQ/L Chloride Level 108 MEQ/L Carbon Dioxide Level 27.4 MEQ/L Anion Gap 8 MEQ/L Estimat Glomerular Filtration Rate 63 ML/MIN [facility] Supervised Visit with LISA: Yes Narrative Course I, Dr. Bose, have reviewed the advance practice practitioner's documentation and am in agreement, met with the patient face to face, made the diagnosis, and the medical decision making was done by me. *My assessment and Findings: Patient seen and examined by me, known to me from previous ER visit, he has an uncircumcised penis, the foreskin is easily retracted and then reduced. He is complaining of penile pain, recent history of urethral stone removed by Dr. De Los Santos. He does have significant urinary retention but no other ureteral stones obstructing. Patient was discussed initially with Dr. De La Cruz who recommends placement of a urinary catheter and follow-up in the outpatient office visit. Attempts to place Hannah catheter unsuccessful, calling Dr. De La Cruz to place urinary catheter. Disposition will depend on Dr. De La Cruz's recommendations. Scripts Oxycodone-Acetaminophen (Percocet) 5-325 mg Tab 1-2 TAB PO Q6H Y for PAIN, #30 TAB 0 Refills Prov: Rolando De La Cruz MD 10/22/17 Cephalexin (Keflex) 250 Mg Cap 250 MG PO TID for Infection, #15 CAP 0 Refills Prov: Rolando De La Cruz MD 10/22/17 Condition: Stable Jarrett Bose MD Oct 22, 2017 17:28
[2017-10-22] MEDS ORDERED: LIDOCAINE 2% JELLY 30 ML TUBE TOPICAL ONE (17:45)
[2017-10-22] MEDS ORDERED: LIDOCAINE HCL 2% JELLY 5 ML SYRINGE TOPICAL ONE (18:15)
[2017-10-22 20:00] VITALS: BP 133/60; PULSE 64; RESP 15; O2SAT 93
--- NOTE | 2017-10-22 21:01 | HHI.HP ---
HPI Service Urology Primary Care Physician Dacia Brown MD Admission Diagnosis Diagnoses: Chief Complaint: Inability to urinate since early this morning History of Present Illness 82-year-old gentleman with history prostate cancer who is status post radiation therapy approximately 10 years ago. Patient was recently evaluated by Dr. Mendenhall for recurrent UTIs and difficulty urinating. Apparently the patient underwent cystoscopic evaluation with extraction of a urethral calculus. Patient states that he has an appointment with [facility] later this week for further evaluation however he presented to emergency room due to inability to urinate with associated suprapubic and penile pain. Multiple attempts were made to pass a Hannah catheter by the emergency room staff without success and a urology consult was placed. I attempted to pass a Hannah catheter at the bedside however met significant resistance within the bulbar urethra. I discussed further evaluation to include cystoscopy and possible placement of a suprapubic catheter this evening with the patient. Review of Systems Constitutional: DENIES: Fever, Night Sweats Cardiovascular: DENIES: Chest pain Gastrointestinal: COMPLAINS OF: Abdominal pain (lower abdomen) Genitourinary: COMPLAINS OF: Urinary incontinence, DENIES: Hematuria Except as stated in HPI: all other systems reviewed are Neg Past Family Social History Past Medical History Prostate cancer 2008 Chronic back pain Herniated disc lower back Past Surgical History Status post radiation therapy for prostate cancer Status post appendectomy Status post bilateral ear surgery Status post left shoulder surgery Status post left knee surgery Status post laminectomy Status post removal of vocal cord tumor Reported Medications Refer to EMR Allergies: Coded Allergies: No Known Allergies (Verified Allergy, Unknown, 10/25/17) Active Ordered Medications Refer to EMR Family History Reviewed and noncontributory Social History Denies tobacco, alcohol or intravenous drug abuse Physical Exam Vital Signs Date Time Temp Pulse Resp B/P (MAP) Pulse Ox O2 Delivery O2 Flow Rate FiO2 10/22/17 18:22 22 10/22/17 18:21 22 10/22/17 15:27 20 10/22/17 13:49 97.8 79 24 154/78 (103) 97 Room Air Physical Exam GENERAL: This is a well-nourished, well-developed patient, in no apparent distress. SKIN: No rashes, ecchymoses or lesions. Cool and dry. HEAD: Atraumatic. Normocephalic. No temporal or scalp tenderness. EYES: Pupils equal round and reactive. Extraocular motions intact. No scleral icterus. No injection or drainage. ENT: Nose without bleeding, purulent drainage or septal hematoma. Throat without erythema, tonsillar hypertrophy or exudate. Uvula midline. Airway patent. NECK: Trachea midline. No JVD or lymphadenopathy. Supple, nontender, no meningeal signs. CARDIOVASCULAR: Regular rate and rhythm without murmurs, gallops, or rubs. RESPIRATORY: Clear to auscultation. Breath sounds equal bilaterally. No wheezes , rales, or rhonchi. GASTROINTESTINAL: Abdomen soft, non-tender, nondistended. No hepato-splenomegaly , or palpable masses. No guarding. GENITOURINARY: Bladder distended, normal male genitalia, testes bilaterally descended MUSCULOSKELETAL: Extremities without clubbing, cyanosis, or edema. No joint tenderness, effusion, or edema noted. No calf tenderness. Negative Homans sign bilaterally. NEUROLOGICAL: Awake and alert. Cranial nerves II through XII intact. Motor and sensory grossly within normal limits. Five out of 5 muscle strength in all muscle groups. Normal speech. Lab results reviewed: Yes Laboratory Tests Test 10/22/17 14:27 White Blood Count 6.6 Red Blood Count 4.79 Hemoglobin 14.5 Hematocrit 41.4 Mean Corpuscular Volume 86.3 Mean Corpuscular Hemoglobin 30.3 Mean Corpuscular Hemoglobin Concent 35.1 Red Cell Distribution Width 14.6 Platelet Count 190 Mean Platelet Volume 7.7 Neutrophils (%) (Auto) 76.8 Lymphocytes (%) (Auto) 12.9 Monocytes (%) (Auto) 8.0 Eosinophils (%) (Auto) 1.5 Basophils (%) (Auto) 0.8 Neutrophils # (Auto) 5.1 Lymphocytes # (Auto) 0.9 Monocytes # (Auto) 0.5 Eosinophils # (Auto) 0.1 Basophils # (Auto) 0.1 CBC Comment DIFF FINAL Differential Comment Prothrombin Time 10.4 Prothromb Time International Ratio 1.0 Activated Partial Thromboplast Time 28.8 Blood Urea Nitrogen 24 Creatinine 1.11 Random Glucose 94 Total Protein 8.1 Albumin 4.0 Calcium Level 9.0 Alkaline Phosphatase 104 Aspartate Amino Transf (AST/SGOT) 16 Alanine Aminotransferase (ALT/SGPT) 22 Total Bilirubin 0.3 Sodium Level 143 Potassium Level 4.2 Chloride Level 108 Carbon Dioxide Level 27.4 Anion Gap 8 Estimat Glomerular Filtration Rate 63 Result Diagram: 10/22/17 1427 10/22/17 1427 Personally reviewed images: Yes Imaging Last Impressions Abdomen/Pelvis CT 10/22/17 1548 Signed Impressions: Service Date/Time: Sunday, October 22, 2017 16:17 - CONCLUSION: 1. Extensive diverticulosis is again noted with no definite inflammatory change or obstruction. 2. 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 3. Unremarkable gallbladder. MD Jair Trevizo VTE Risk Assessment Jair VTE Risk Assessment: No/Low Risk (score <= 1) Caprini Risk Assessment Model Point Value = 1 Point Value = 2 Point Value = 3 Point Value = 5 Age 41-60 Minor surgery BMI > 25 kg/m2 Swollen legs Varicose veins or History of unexplained or recurrent spontaneous Oral contraceptives or hormone replacement Sepsis (< 1 month) Serious lung disease, including pneumonia (< 1 month) Abnormal pulmonary function Acute myocardial infarction Congestive heart failure (< 1 month) History of inflammatory bowel disease Medical patient at bed rest Age 61-74 Arthroscopic surgery Major open surgery (> 45 min) Laparoscopic surgery (> 45 min) Malignancy Confined to bed (> 72 hours) Immobilizing plaster cast Central venous access Age >= 75 History of VTE Family history of VTE Factor V Leiden Prothrombin [id number] Lupus anticoagulant Anticardiolipin antibodies Elevated serum homocysteine Heparin-induced thrombocytopenia Other congenital or acquired thrombophilia Stroke (< 1 month) Elective arthroplasty Hip, pelvis, or leg fracture Acute spinal cord injury (< 1 month) Prophylaxis Regimen Total Risk Factor Score Risk Level Prophylaxis Regimen 0-1 Low Early ambulation 2 Moderate Order ONE of the following: *Sequential Compression Device (SCD) *Heparin 5000 units SQ BID 3-4 Higher Order ONE of the following medications: *Heparin 5000 units SQ TID *Enoxaparin/Lovenox 40 mg SQ daily (WT < 150 kg, CrCl > 30 mL/min) *Enoxaparin/Lovenox 30 mg SQ daily (WT < 150 kg, CrCl > 10-29 mL/min) *Enoxaparin/Lovenox 30 mg SQ BID (WT < 150 kg, CrCl > 30 mL/min) AND/OR *Sequential Compression Device (SCD) 5 or more Highest Order ONE of the following medications: *Heparin 5000 units SQ TID (Preferred with Epidurals) *Enoxaparin/Lovenox 40 mg SQ daily (WT < 150 kg, CrCl > 30 mL/min) *Enoxaparin/Lovenox 30 mg SQ daily (WT < 150 kg, CrCl > 10-29 mL/min) *Enoxaparin/Lovenox 30 mg SQ BID (WT < 150 kg, CrCl > 30 mL/min) AND *Sequential Compression Device (SCD) Assessment and Plan Assessment and Plan Urologic impression: Urinary retention of indeterminate etiology Plan: #1 keep patient nothing by mouth #2 bring the patient to the cystoscopy suite this evening for cystoscopy, placement of Hannah and possible placement of suprapubic catheter #3 risks discussed with patient Rolando De La Cruz MD Oct 22, 2017 21:01
[2017-10-22 21:14] VITALS: BP 146/72; PULSE 76; RESP 24; TEMP 98; O2SAT 97
--- NOTE | 2017-10-22 22:59 | PD.OP ---
Operative Report Date of Surgery: Oct 22, 2017 Preoperative Diagnosis: (1) Urinary retention Postoperative Diagnosis: (1) Urethral stricture (2) Urinary retention Procedure: Cystoscopy and placement of suprapubic catheter Surgeon: Rolando De La Cruz Salvage Winder(s): None Operation and Findings: Indication for procedures: Case of a pleasant 82 year-old gentleman with history prostate cancer who presented to the emergency room in urinary retention. Presents now for cystoscopy, Hannah catheter insertion and possible suprapubic catheter insertion. Operative procedure in detail: Patient was brought to the operating suite and placed supine on the cystoscopy table. He was then placed and general anesthesia. Present repositioned in the dorsolithotomy position and prepped and draped in normal sterile fashion. After appropriate timeout was undertaken to proceed with cystoscopic evaluation utilizing the rigid cystoscope with a 20 Peruvian sheath and 30 lens. The anterior urethra was patent without stricture formation. Once I entered the bulbar urethra there was complete occlusion with calcifications noted. Attempt was made to pass a guidewire without success. I then proceeded with placing a suprapubic catheter as follows. Initially a spinal needle was utilized to determine the proper trajectory for the subsequent suprapubic catheter. The needle was easily advanced with return of clear urine. I then proceeded with making a small incision at the same site with a #15 blade and was able to utilize a suprapubic trocar device conforming to the St. directory as the spinal needle. The trocar was easily inserted and the obturator was removed with evacuation of clear yellow urine. A 16 Peruvian Hannah catheter was placed through the sheath and the peel-away sheath removed. 10 cc sterile water was placed into the Hannah and the Hannah secured to the skin surface with two 0 silk sutures. A sterile dressing was placed around the suprapubic site. The patient tolerated the procedures without complications and transferred to the PACU in satisfactory condition. Rolando De La Cruz MD Oct 22, 2017 22:59
[2017-10-22] MEDS: DEXT 5%-NACL 0.45% 1000 ML INJ 1,000 ML IV SCH (23:00)
[2017-10-22] MEDS ORDERED: TEMAZEPAM 15 MG CAP PO PRN (23:00)
[2017-10-22] MEDS ORDERED: ONDANSETRON HCL 4 MG/2 ML VIAL IV PUSH PRN (23:00)
[2017-10-22] MEDS ORDERED: CEPH-459 PO (23:05)
[2017-10-22] MEDS ORDERED: PERC5TAB12 PO (23:05)
[2017-10-22] MEDS ORDERED: DO NOT ADM ANY ANTICOAGULANT DRUGS PRN (23:15)
[2017-10-22] MEDS: oxyCODONE/ACETAMINOPHEN 5 MG/325 MG TAB PO PRN (23:58)
[2017-10-23] VITALS: BP_SYST 126; BP_SYST 129; BP_DIAS 55; BP_DIAS 69; PULSE 72; PULSE 75; RESP 15; RESP 16; TEMP 96.5; TEMP 96.7; O2SAT 97; O2SAT 98
[2017-10-23 04:00] VITALS: BP_SYST 101; BP_SYST 122; BP_DIAS 56; BP_DIAS 57; PULSE 65; PULSE 74; RESP 15; TEMP 96.5; TEMP 96.7; O2SAT 96; O2SAT 99
[2017-10-23] MEDS: oxyCODONE/ACETAMINOPHEN 5 MG/325 MG TAB PO PRN (07:56)
[2017-10-23 08:00] VITALS: BP 102/60; PULSE 61; RESP 16; TEMP 96.3; O2SAT 98
[2017-10-23] MEDS: DEXT 5%-NACL 0.45% 1000 ML INJ 1,000 ML IV SCH (08:00)
[2017-10-23 10:52] VITALS: BP 98/53; PULSE 71; RESP 17; TEMP 96.6; O2SAT 98
== END 2017-10-23 14:44 | disposition home or self-care (01) ==
LOC: NEPE 13:48 → HPAC 23:19 → N06A 23:44
PROVIDERS: ADMIT Urology; ATTEND Urology
DX: N35.9 Urethral stricture, unspecified (principal); N21.1 Calculus in urethra; N13.9 Obstructive and reflux uropathy, unspecified; Z92.3 Personal history of irradiation; Z85.46 Personal history of malignant neoplasm of prostate; Z87.440 Personal history of urinary (tract) infections; G89.29 Other chronic pain; K57.90 Diverticulosis of intestine, part unspecified, without perforation or abscess without bleeding; N20.0 Calculus of kidney; Z87.442 Personal history of urinary calculi; M19.90 Unspecified osteoarthritis, unspecified site; K21.9 Gastro-esophageal reflux disease without esophagitis; K44.9 Diaphragmatic hernia without obstruction or gangrene; H53.2 Diplopia
CPT/HCPCS: 00860; 51040; 74176; 80053; 85025; 85610; 85730; 96361; 96374; 96375; 96376; 99285; C1769; G0378; J1170; J1885; J3010; J7040

== ENCOUNTER 2017-10-25 18:38 | Emergency (ER) | payer MEDICARE ==
[~2017-10-25 18:38] MED LIST changes: +CEPH-459 PO; -DOCU100C15 PO; -MACR100C2 PO; +PERC5TAB12 PO
[2017-10-25 18:47] VITALS: BP 173/86; PULSE 108; RESP 20; TEMP 98.3; O2SAT 98
[2017-10-25 19:10] LABS: AUTOMATED NEUTROPHIL # 4.6 TH/MM3 (1.8-7.7); BASOPHIL # 0.1 TH/MM3 (0-0.2); BASOPHIL % 1.2 % (0.0-2.0); EOSINOPHIL # 0.2 TH/MM3 (0-0.4); EOSINOPHIL % 3.3 % (0.0-4.0); HEMATOCRIT 38.7 % (39.0-51.0); HEMOGLOBIN 12.7 GM/DL (13.0-17.0); LYMPH % 10.6 % (9.0-44.0); LYMPHOCYTE # 0.7 TH/MM3 (1.0-4.8); MEAN CELL VOLUME 87.6 FL (80.0-100.0); MEAN CORPUSCULAR HEMOGLOBIN 28.7 PG (27.0-34.0); MEAN CORPUSCULAR HGB CONC 32.8 % (32.0-36.0); MEAN PLATELET VOLUME 7.3 FL (7.0-11.0); MONO % 9.2 % (0.0-8.0); MONOCYTE # 0.6 TH/MM3 (0-0.9); NEUT % 75.7 % (16.0-70.0); PLATELET COUNT 159 TH/MM3 (150-450); RED BLOOD COUNT 4.42 MIL/MM3 (4.50-5.90); RED CELL DISTRIBUTION WIDTH 14.2 % (11.6-17.2); WHITE BLOOD COUNT 6.2 TH/MM3 (4.0-11.0)
[2017-10-25 19:20] LABS: BICARBONATE 27.9 MEQ/L (21.0-32.0); CALCIUM 8.3 MG/DL (8.5-10.1)
[2017-10-25 19:23] LABS: INTERNATIONAL NORMALIZED RATIO 1.1 RATIO; PROTHROMBIN TIME - PATIENT 10.7 SEC (9.8-11.6)
[2017-10-25 19:24] LABS: CREATININE 0.99 MG/DL (0.60-1.30)
[2017-10-25 19:34] LABS: BILIRUBIN, URINE NEG (NEG); BLOOD, URINE MOD (NEG); GLUCOSE,URINE NEG (NEG); KETONE, URINE NEG (NEG); NITRITE,URINE NEG (NEG); PH, URINE 6.5 (5.0-8.5); URINE LEUKOCYTE ESTERASE TRACE (NEG)
--- NOTE | 2017-10-25 19:46 | PD ---
HPI Chief Complaint: Complaint Time Seen by Provider: 19:08 Travel History International Travel<30 days: No Contact w/Intl Traveler<30days: No Traveled to known affect area: No History of Present Illness HPI The patient is an 82-year-old male with a history of prostate cancer and radiation therapy 10 years ago who was evaluated by Dr. Renetta dumont for frequent urinary tract infections and difficulty urinating. Apparently, urethral calculi were found and the patient had extraction of these. He was taken up to the emergency department and an appointment with the [facility] was canceled, he had an appointment today with the [facility]. Because of Hannah catheter could not be passed he had a suprapubic catheter put in. He did well after urethral calculi were removed by Dr. De La Cruz but 2 hours ago he had painless urethral bleeding. He came into the emergency department again for this urethral bleeding. The blood is not coming from the bladder, it is coming from the urethra. He is not on any anticoagulants. PFSH Past Medical History Arthritis: Yes Asthma: No Autoimmune Disease: No Heart Rhythm Problems: No Cancer: Yes (PROSTATE CA 2007) Cardiovascular Problems: No High Cholesterol: No Chemotherapy: No Chest Pain: No Congestive Heart Failure: No COPD: No Cerebrovascular Accident: No Diabetes: No Diminished Hearing: Yes GERD: Yes Genitourinary: Yes ([place] PROSTATE, URINARY RETENTION) Headaches: No Hepatitis: No Hiatal Hernia: Yes Herniated Disk: Yes Immune Disorder: No Kidney Stones: No Medical other: Yes (CHRONIC BACK PAIN) Musculoskeletal: Yes (LEFT ARM LIMITED MOVEMENT) Neurologic: Yes (DIPLOPIA) Psychiatric: No Reproductive: No Respiratory: No Immunizations Current: Yes Migraines: No Radiation Therapy: Yes Renal Failure: No Seizures: No Sickle Cell Disease: No Sleep Apnea: No Thyroid Disease: No Ulcer: No Past Surgical History Abdominal Surgery: Yes (APPENDECTOMY) AICD: No Appendectomy: Yes Arteriovenous Shunt: No Cardiac Surgery: No 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) Endocrine Surgery: No Eye Surgery: No Genitourinary Surgery: No Gynecologic Surgery: No Insulin Pump: No Joint Replacement: Yes (LEFT SHOULDER, LEFT KNEE) Neurologic Surgery: Yes (LAMINECTOMY) Oral Surgery: Yes (TONSILLECTOMY) Pacemaker: No Prostatectomy: Yes (2002) Thoracic Surgery: No Tonsillectomy: Yes () Other Surgery: Yes ( 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 His vital signs show blood pressure 173/86 with heart rate of 108 but otherwise are normal. He does not appear obviously anemic. SKIN: Focused skin assessment warm/dry. HEAD: Atraumatic. Normocephalic. EYES: Pupils equal and round. No scleral icterus. No injection or drainage. ENT: No nasal bleeding or discharge. Mucous membranes pink and moist. NECK: Trachea midline. No JVD. CARDIOVASCULAR: Regular rate and rhythm. No murmur appreciated. RESPIRATORY: No accessory muscle use. Clear to auscultation. Breath sounds equal bilaterally. GASTROINTESTINAL: Abdomen soft, non-tender, nondistended. Hepatic and splenic margins not palpable. MUSCULOSKELETAL: No obvious deformities. No clubbing. No cyanosis. No edema. NEUROLOGICAL: Awake and alert. No obvious cranial nerve deficits. Motor grossly within normal limits. Normal speech. PSYCHIATRIC: Appropriate mood and affect; insight and judgment normal. GENITOURINARY: Circumcised. There is a suprapubic catheter in place and the urine appears clear from the suprapubic catheter. Blood is present on the urethral orifice but at this time there is no active bleeding. Data Data Last Documented VS Vital Signs Date Time Temp Pulse Resp B/P (MAP) Pulse Ox O2 Delivery O2 Flow Rate FiO2 10/25/17 18:47 98.3 108 20 173/86 (115) 98 Orders Orders Complete Blood Count With Diff (10/25/17 18:48) Basic Metabolic Panel (Bmp) (10/25/17 18:48) Prothrombin Time / Inr (Pt) (10/25/17 18:48) Act Partial Throm Time (Ptt) (10/25/17 18:48) Urinalysis - C+S If Indicated (10/25/17 18:48) Type And Screen (10/25/17 18:48) Labs Laboratory Tests Test 10/25/17 19:00 White Blood Count 6.2 TH/MM3 Red Blood Count 4.42 MIL/MM3 Hemoglobin 12.7 GM/DL Hematocrit 38.7 % Mean Corpuscular Volume 87.6 FL Mean Corpuscular Hemoglobin 28.7 PG Mean Corpuscular Hemoglobin Concent 32.8 % Red Cell Distribution Width 14.2 % Platelet Count 159 TH/MM3 Mean Platelet Volume 7.3 FL Neutrophils (%) (Auto) 75.7 % Lymphocytes (%) (Auto) 10.6 % Monocytes (%) (Auto) 9.2 % Eosinophils (%) (Auto) 3.3 % Basophils (%) (Auto) 1.2 % Neutrophils # (Auto) 4.6 TH/MM3 Lymphocytes # (Auto) 0.7 TH/MM3 Monocytes # (Auto) 0.6 TH/MM3 Eosinophils # (Auto) 0.2 TH/MM3 Basophils # (Auto) 0.1 TH/MM3 CBC Comment DIFF FINAL Differential Comment Blood Urea Nitrogen 23 MG/DL Random Glucose 103 MG/DL Calcium Level 8.3 MG/DL Sodium Level 139 MEQ/L Potassium Level 4.4 MEQ/L Chloride Level 107 MEQ/L Carbon Dioxide Level 27.9 MEQ/L Anion Gap 4 MEQ/L MDM Medical Decision Making Medical Screen Exam Complete: Yes Emergency Medical Condition: Yes Medical Record Reviewed: Yes Interpretation(s) The CBC is normal except for hemoglobin of 12.7 and hematocrit of 38.7. The basic metabolic profile shows a BUN of 23, GFR of 72 and calcium 8.3 but is otherwise unremarkable. The coagulation profile is normal. Differential Diagnosis Urethral bleeding, status post urethral calculus removal, coagulopathy, anemia, electrolyte disorder Narrative Course I discussed the patient with Dr. Ching who is apparently covering for Dr. De La Crzu. Dr. Ching stated that admission would not help the patient, he simply needs to stay in bed and let the urethral bleeding clot off. He should call Dr. De La Cruz in the morning. The patient is not in pain and he is passing clear urine through his suprapubic catheter. Dr. Ching stated that any surgical attempt to stop the bleeding is frustrated by the tissue that has already undergone radiation treatment and this tends to bleed excessively. It is hoped that by simple rest the patient will clot off and the bleeding will stop. At this time the bleeding has stopped from the urethra. When he stands up he bleed slightly but he is not to stand up. Diagnosis Primary Impression: Urethral bleeding Additional Instructions: As we discussed, you are to stay in bed and avoid standing. Standing can make the urethra started bleeding again. It is hoped that he will clot off naturally and avoid any surgery which is very difficult with previously irradiated tissue. Call Dr. De La Cruz's office in the morning. Disposition: 01 DISCHARGE HOME Condition: Stable Ankush Saha MD Oct 25, 2017 19:46
[2017-10-25 19:50] LABS: BACTERIA, URINE OCC /hpf; RBC, URINE 15-19 /hpf (0-3); SQUAMOUS EPITHELIAL CELL URINE 0-5 /hpf (0-5); URINE COLOR YELLOW (YELLW/STRAW)
== END 2017-10-25 20:09 | disposition home or self-care (01) ==
LOC: PHED 18:38
DX: N36.8 Other specified disorders of urethra (principal); N99.820 Postprocedural hemorrhage of a genitourinary system organ or structure following a genitourinary system procedure; Z85.46 Personal history of malignant neoplasm of prostate
CPT/HCPCS: 80048; 81001; 85025; 85610; 85730; 86850; 86900; 86901; 99283

== ENCOUNTER 2018-02-05 17:39 | Emergency (ER) | payer MEDICARE ==
[~2018-02-05 17:39] MED LIST changes: -CEPH-459 PO; -PERC5TAB12 PO
[2018-02-05 17:50] VITALS: BP 140/69; PULSE 78; RESP 16; TEMP 98.7; O2SAT 96
--- NOTE | 2018-02-05 18:07 | PD ---
HPI Chief Complaint: Abdominal Pain Time Seen by Provider: 18:05 Travel History International Travel<30 days: No Contact w/Intl Traveler<30days: No Traveled to known affect area: No History of Present Illness HPI Complaining of left lower quadrant area pain, described as sharp, 6 out of 10, radiating from left flank towards the left hip and left groin area. No alleviating or aggravating factors. Patient denies any associated factors such as fever, headache, back pain, nausea vomiting diarrhea, cough runny nose sore throat, fecal or urinary incontinence. 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, [facility] Past Medical History Arthritis: Yes Asthma: No Autoimmune Disease: No Heart Rhythm Problems: No Cancer: Yes (PROSTATE CA 2007) Cardiovascular Problems: No High Cholesterol: No Chemotherapy: No Chest Pain: No Congestive Heart Failure: No COPD: No Cerebrovascular Accident: No Diabetes: No Diminished Hearing: Yes GERD: Yes Genitourinary: Yes ([place] PROSTATE, URINARY RETENTION) Headaches: No Hepatitis: No Hiatal Hernia: Yes Herniated Disk: Yes Immune Disorder: No Kidney Stones: No Musculoskeletal: Yes (LEFT ARM LIMITED MOVEMENT) Neurologic: Yes (DIPLOPIA) Psychiatric: No Reproductive: No Respiratory: No Immunizations Current: Yes Migraines: No Radiation Therapy: Yes Renal Failure: No Seizures: No Sickle Cell Disease: No Sleep Apnea: No Thyroid Disease: No Ulcer: No Past Surgical History Abdominal Surgery: Yes (APPENDECTOMY) AICD: No Appendectomy: Yes Arteriovenous Shunt: No Cardiac Surgery: No 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) Endocrine Surgery: No Eye Surgery: No Genitourinary Surgery: No Gynecologic Surgery: No Insulin Pump: No Joint Replacement: Yes (LEFT SHOULDER, LEFT KNEE) Neurologic Surgery: Yes (LAMINECTOMY) Oral Surgery: Yes (TONSILLECTOMY) Pacemaker: No Prostatectomy: Yes (2002) Thoracic Surgery: No Tonsillectomy: Yes () Other Surgery: Yes ( 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) Social History Alcohol Use: No Tobacco Use: No Substance Use: No Allergies-Medications (Allergen,Severity, Reaction): Coded Allergies: morphine (Verified Adverse Reaction, Severe, 02/05/18) "ALTERED MENTAL AND HALLUCINATIONS" Reported Meds & Prescriptions Reported Meds & Active Scripts Active Macrobid (Nitrofurantoin Monohydrate Macrocrystals) 100 Mg Capsule 100 Mg PO BID 10 Days Reported Hydrocodone-Acetaminophen 10-325 mg Tab 1 Tab PO Q6H PRN Review of Systems General / Constitutional: No: Fever Eyes: No: Visual changes HENT: No: Headaches Cardiovascular: No: Chest Pain or Discomfort Respiratory: No: Shortness of Breath Gastrointestinal: Positive: Abdominal Pain Genitourinary: No: Dysuria Musculoskeletal: No: Pain Skin: No Rash Neurologic: No: Weakness Psychiatric: No: Depression Endocrine: No: Polydipsia Hematologic/Lymphatic: No: Easy Bruising Physical Exam Narrative GENERAL: SKIN: Warm and dry. HEAD: Atraumatic. Normocephalic. EYES: Pupils equal and round. No scleral icterus. No injection or drainage. ENT: No nasal bleeding or discharge. Mucous membranes pink and moist. NECK: Trachea midline. No JVD. CARDIOVASCULAR: Regular rate and rhythm. RESPIRATORY: No accessory muscle use. Clear to auscultation. Breath sounds equal bilaterally. GASTROINTESTINAL: Abdomen soft, non-tender, nondistended. MUSCULOSKELETAL: Extremities without clubbing, cyanosis, or edema. No obvious deformities. Severe kyphosis. There is CVA tenderness NEUROLOGICAL: Awake and alert. No obvious cranial nerve deficits. Motor grossly within normal limits. Five out of 5 muscle strength in the arms and legs. Normal speech. PSYCHIATRIC: Appropriate mood and affect; insight and judgment normal. Data Data Last Documented VS Vital Signs Date Time Temp Pulse Resp B/P (MAP) Pulse Ox O2 Delivery O2 Flow Rate FiO2 02/05/18 20:58 68 18 121/64 (83) 97 02/05/18 19:00 Room Air 02/05/18 17:50 98.7 Orders Orders Complete Blood Count With Diff (02/05/18 18:29) Comprehensive Metabolic Panel (02/05/18 18:29) Urinalysis - C+S If Indicated (02/05/18 18:29) Ecg Monitoring (02/05/18 18:29) Iv Access Insert/Monitor (02/05/18 18:29) Ketorolac Inj (Toradol Inj) (02/05/18 18:30) Sodium Chloride 0.9% Flush (Ns Flush) (02/05/18 18:30) Sodium Chlor 0.9% 1000 Ml Inj (Ns 1000 M (02/05/18 18:29) Urine Culture (02/05/18 19:19) Ceftriaxone Inj (Rocephin Inj) (02/05/18 19:45) Ed Discharge Order (02/05/18 20:50) Labs Laboratory Tests Test 02/05/18 18:35 02/05/18 19:19 White Blood Count 8.0 TH/MM3 Red Blood Count 4.88 MIL/MM3 Hemoglobin 13.3 GM/DL Hematocrit 41.9 % Mean Corpuscular Volume 85.9 FL Mean Corpuscular Hemoglobin 27.2 PG Mean Corpuscular Hemoglobin Concent 31.7 % Red Cell Distribution Width 14.9 % Platelet Count 201 TH/MM3 Mean Platelet Volume 7.0 FL Neutrophils (%) (Auto) 84.1 % Lymphocytes (%) (Auto) 6.5 % Monocytes (%) (Auto) 8.2 % Eosinophils (%) (Auto) 0.7 % Basophils (%) (Auto) 0.5 % Neutrophils # (Auto) 6.7 TH/MM3 Lymphocytes # (Auto) 0.5 TH/MM3 Monocytes # (Auto) 0.7 TH/MM3 Eosinophils # (Auto) 0.1 TH/MM3 Basophils # (Auto) 0.0 TH/MM3 CBC Comment DIFF FINAL Differential Comment Blood Urea Nitrogen 23 MG/DL Creatinine 1.20 MG/DL Random Glucose 96 MG/DL Total Protein 7.4 GM/DL Albumin 3.5 GM/DL Calcium Level 9.2 MG/DL Alkaline Phosphatase 112 U/L Aspartate Amino Transf (AST/SGOT) 17 U/L Alanine Aminotransferase (ALT/SGPT) 19 U/L Total Bilirubin 0.4 MG/DL Sodium Level 141 MEQ/L Potassium Level 4.7 MEQ/L Chloride Level 108 MEQ/L Carbon Dioxide Level 26.8 MEQ/L Anion Gap 6 MEQ/L Estimat Glomerular Filtration Rate 58 ML/MIN Urine Color YELLOW Urine Turbidity CLEAR Urine pH 6.0 Urine Specific [place] 1.020 Urine Protein TRACE mg/dL Urine Glucose (UA) NEG mg/dL Urine Ketones NEG mg/dL Urine Occult Blood TRACE Urine Nitrite NEG Urine Bilirubin NEG Urine Urobilinogen 0.2 MG/DL Urine Leukocyte Esterase SMALL Urine RBC 3-5 /hpf Urine WBC 50-99 /hpf Urine Squamous Epithelial Cells 0-5 /hpf Urine Bacteria OCC /hpf Microscopic Urinalysis Comment CULTURE INDICATED MDM Medical Decision Making Medical Screen Exam Complete: Yes Emergency Medical Condition: Yes Medical Record Reviewed: Yes Differential Diagnosis Colitis versus diverticulitis versus enteritis versus ureterolithiasis Narrative Course UA does not show any evidence of leukocytosis, no anemia, very mild neutrophilia of 84%, with normal platelet count Electrolytes are all within normal limits, normal kidney liver functions UA is consistent with UTI Patient refused CT scan. 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 Procedures Procedure Narrative Bedside ultrasound performed by myself: Splenorenal recess does not show any free fluid, left CVA area does not show any evidence of hydronephrosis noted in the renal pelvis. Clinically there is also no CVA tenderness. 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 Diagnosis Primary Impression: Urinary tract infection Qualified Codes: N30.00 - Acute cystitis without hematuria Patient Instructions: General Instructions, Urinary Tract Infection in Men (DC) Scripts Nitrofurantoin Monohydrate Macrocrystals (Macrobid) 100 Mg Capsule 100 MG PO BID for Infection for 10 Days, #20 CAP 0 Refills Prov: Joni Yang MD 02/05/18 Disposition: 01 DISCHARGE HOME Condition: Stable Joni Yang MD February 05, 2018 18:07
[2018-02-05] MEDS ORDERED: SODIUM CHLOR 0.9% 1000 ML INJ 1,000 ML IV ONE (18:29)
[2018-02-05] MEDS ORDERED: SODIUM CHLORIDE 0.9% FLUSH 10 ML FLUSH IVF PRN (18:30)
[2018-02-05] MEDS ORDERED: KETOROLAC TROMETHAMINE 30 MG/ML (IVP) VIAL IV PUSH ONE (18:30)
[2018-02-05 18:42] LABS: AUTOMATED NEUTROPHIL # 6.7 TH/MM3 (1.8-7.7); BASOPHIL % 0.5 % (0.0-2.0); EOSINOPHIL # 0.1 TH/MM3 (0-0.4); EOSINOPHIL % 0.7 % (0.0-4.0); HEMATOCRIT 41.9 % (39.0-51.0); HEMOGLOBIN 13.3 GM/DL (13.0-17.0); LYMPH % 6.5 % (9.0-44.0); LYMPHOCYTE # 0.5 TH/MM3 (1.0-4.8); MEAN CELL VOLUME 85.9 FL (80.0-100.0); MEAN CORPUSCULAR HEMOGLOBIN 27.2 PG (27.0-34.0); MEAN CORPUSCULAR HGB CONC 31.7 % (32.0-36.0); MONO % 8.2 % (0.0-8.0); MONOCYTE # 0.7 TH/MM3 (0-0.9); NEUT % 84.1 % (16.0-70.0); PLATELET COUNT 201 TH/MM3 (150-450); RED BLOOD COUNT 4.88 MIL/MM3 (4.50-5.90); RED CELL DISTRIBUTION WIDTH 14.9 % (11.6-17.2)
[2018-02-05 18:51] LABS: CHLORIDE 108 MEQ/L (98-107); SODIUM (NA) 141 MEQ/L (136-145)
[2018-02-05 18:54] LABS: CALCIUM 9.2 MG/DL (8.5-10.1)
[2018-02-05 18:55] LABS: ALBUMIN 3.5 GM/DL (3.4-5.0); BICARBONATE 26.8 MEQ/L (21.0-32.0); BLOOD UREA NITROGEN 23 MG/DL (7-18); GLUCOSE,RANDOM 96 MG/DL (74-106)
[2018-02-05 18:57] LABS: ALT (GPT) 19 U/L (12-78)
[2018-02-05 18:58] LABS: AST (GOT) 17 U/L (15-37); GLOMERULAR FILTRATION RATE 58 ML/MIN (>89)
[2018-02-05 18:59] LABS: TOTAL BILIRUBIN ADULT 0.4 MG/DL (0.2-1.0); TOTAL PROTEIN 7.4 GM/DL (6.4-8.2)
[2018-02-05 19:00] VITALS: BP 138/68; PULSE 70; RESP 18; O2SAT 98
[2018-02-05 19:00] LABS: ALKALINE PHOSPHATASE 112 U/L (45-117)
[2018-02-05 19:24] LABS: BILIRUBIN, URINE NEG (NEG); BLOOD, URINE TRACE (NEG); GLUCOSE,URINE NEG (NEG); KETONE, URINE NEG (NEG); NITRITE,URINE NEG (NEG); URINE COLOR YELLOW (YELLW/STRAW); URINE LEUKOCYTE ESTERASE SMALL (NEG)
[2018-02-05 19:29] LABS: BACTERIA, URINE OCC /hpf; SQUAMOUS EPITHELIAL CELL URINE 0-5 /hpf (0-5)
[2018-02-05] MEDS ORDERED: cefTRIAXone INJ 1,000 MG in SODIUM CHLORIDE 0.9% INJ 100 ML IV ONE (19:45)
[2018-02-05] MEDS ORDERED: MACR100C2 PO (20:25)
[2018-02-05 20:26] VITALS: RESP 18
[2018-02-05 20:58] VITALS: BP 121/64
== END 2018-02-05 21:15 | disposition home or self-care (01) ==
LOC: PHED 17:39
DX: K21.9 Gastro-esophageal reflux disease without esophagitis (principal); N30.00 Acute cystitis without hematuria; Z85.46 Personal history of malignant neoplasm of prostate
CPT/HCPCS: 80053; 81001; 85025; 87086; 96361; 96365; 96375; 99284; J0696; J1885; J7030

== ENCOUNTER 2018-02-07 11:50 | Inpatient (IN) | payer MEDICARE ==
[~2018-02-07] VITALS: Ht 170.2 cm; Wt 83.0 kg
[~2018-02-07 11:50] MED LIST changes: +MACR100C2 PO
[2018-02-07 12:05] VITALS: BP 139/80; PULSE 91; RESP 18; TEMP 98.6; O2SAT 96
[2018-02-07 12:45] LABS: AUTOMATED NEUTROPHIL # 8.1 TH/MM3 (1.8-7.7); BASOPHIL % 0.3 % (0.0-2.0); HEMATOCRIT 40.8 % (39.0-51.0); HEMOGLOBIN 13.4 GM/DL (13.0-17.0); LYMPH % 1.7 % (9.0-44.0); LYMPHOCYTE # 0.1 TH/MM3 (1.0-4.8); MEAN CORPUSCULAR HEMOGLOBIN 28.1 PG (27.0-34.0); MEAN CORPUSCULAR HGB CONC 32.7 % (32.0-36.0); MEAN PLATELET VOLUME 7.8 FL (7.0-11.0); MONO % 5.9 % (0.0-8.0); MONOCYTE # 0.5 TH/MM3 (0-0.9); NEUT % 92.1 % (16.0-70.0); PLATELET COUNT 194 TH/MM3 (150-450); RED BLOOD COUNT 4.74 MIL/MM3 (4.50-5.90); RED CELL DISTRIBUTION WIDTH 15.8 % (11.6-17.2); WHITE BLOOD COUNT 8.8 TH/MM3 (4.0-11.0)
[2018-02-07 12:57] LABS: BACTERIA, URINE RARE /hpf; BILIRUBIN, URINE NEG (NEG); BLOOD, URINE MOD (NEG); GLUCOSE,URINE NEG (NEG); HYALINE CAST, URINE 2 /lpf (RARE); KETONE, URINE 40 mg/dL (NEG); MUCUS URINE FEW /lpf (OCC); NITRITE,URINE NEG (NEG); PH, URINE 5.5 (5.0-8.5); SQUAMOUS EPITHELIAL CELL URINE 2 /hpf (0-5); URINE COLOR YELLOW (YELLW/STRAW); URINE LEUKOCYTE ESTERASE LARGE (NEG)
[2018-02-07 13:08] LABS: ALBUMIN 3.5 GM/DL (3.4-5.0); ALKALINE PHOSPHATASE 107 U/L (45-117); ALT (GPT) 19 U/L (12-78); AST (GOT) 35 U/L (15-37); BICARBONATE 23.2 MEQ/L (21.0-32.0); BLOOD UREA NITROGEN 29 MG/DL (7-18); CALCIUM 8.4 MG/DL (8.5-10.1); CHLORIDE 108 MEQ/L (98-107); GLOMERULAR FILTRATION RATE 38 ML/MIN (>89); GLUCOSE,RANDOM 89 MG/DL (74-106); SODIUM (NA) 141 MEQ/L (136-145); TOTAL PROTEIN 7.7 GM/DL (6.4-8.2)
--- NOTE | 2018-02-07 13:36 | RADRPT ---
EXAM DATE/TIME: 02/07/2018 13:10 [facility] COMPARISON: CHEST SINGLE AP, July 13, 2015, 11:30. INDICATIONS : Fever MEDICAL HISTORY : Carcinoma, prostatic. SURGICAL HISTORY : Appendectomy. Prostatectomy ENCOUNTER: Initial ACUITY: 1 day PAIN SCORE: Non-responsive. LOCATION: chest FINDINGS: Today's exam is compared to the prior study from 2014. There is persistent elevation of the right hem idiaphragm which is unchanged. The visualized right lung is grossly clear. The left lung is grossly c lear. There is a mild prominence of pulmonary vasculature. The heart size is within normal limits. No definite pleural effusions or pulmonary edema there is osteopenia of the bony structures. There is a left shoulder testes is in place. CONCLUSION: No definite acute pulmonary infiltrates. Mild pulmonary venous congestion. Persistent elevation of th e right hemidiaphragm. Marshall Lantigua MD on February 07, 2018 at 13:33 Board Certified Radiologist. This report was verified electronically.
[2018-02-07 15:12] VITALS: BP 137/65; PULSE 75; RESP 18; O2SAT 96
[2018-02-07] MEDS ORDERED: cefTRIAXone INJ 1,000 MG in SODIUM CHLORIDE 0.9% INJ 100 ML IV ONE (16:00)
--- NOTE | 2018-02-07 16:07 | RADRPT ---
EXAM DATE/TIME: 02/07/2018 15:37 [facility] COMPARISON: CT BRAIN W/O CONTRAST, July 01, 2013, 9:43. INDICATIONS : General weakness, altered mental status. RADIATION DOSE: 66.34 CTDIvol (mGy) MEDICAL HISTORY : Syncope, prostate cancer SURGICAL HISTORY : Fusion, cervical. Laminectomy ENCOUNTER: Initial ACUITY: 1 day PAIN SCALE: 2/10 LOCATION: cranial TECHNIQUE: Multiple contiguous axial images were obtained of the head. Using automated exposure control and adj ustment of the mA and/or kV according to patient size, radiation dose was kept as low as reasonably a chievable to obtain optimal diagnostic quality images. DICOM format image data is available electro nically for review and comparison. FINDINGS: CEREBRUM: Patient is canted in the scanner. The ventricles are normal for age. No evidence of midline shift, m ass lesion, hemorrhage or acute infarction. No extra-axial fluid collections are seen. POSTERIOR FOSSA: The cerebellum and brainstem are intact. The 4th ventricle is midline. The cerebellopontine angle i s unremarkable. EXTRACRANIAL: The visualized portion of the orbits is intact. Posterior transpedicular fixation of the cervical spi ne. SKULL: The calvaria is intact. No evidence of skull fracture. CONCLUSION: Nothing acute. Luis Mooney MD on February 07, 2018 at 16:03 Board Certified Radiologist. This report was verified electronically.
[2018-02-07 16:15] VITALS: BP 141/78; PULSE 81; RESP 17; O2SAT 96
--- NOTE | 2018-02-07 16:57 | HHI.HP ---
[facility] Dacia Brown MD Admission Diagnosis urinary tract infection Diagnoses: (1) Complicated UTI (urinary tract infection) Diagnosis: Principal (2) Recurrent UTI (urinary tract infection) (3) Altered mental status (4) MISSY (acute kidney injury) Chief Complaint: Increased confusion Travel History International Travel<30 Days: No Contact w/Intl Traveler <30 Da: No Traveled to Known Affected Are: No Sepsis Criteria SIRS Criteria (2 or more): Heart rate over 90, WBC > 72986, < 4000 or > 10% bands Sepsis Criteria (SIRS+source): Infect source susp/known History of Present Illness 83-year-old male with past medical history significant for prostate cancer s/p radiation treatment in 2007, recurrent UTIs, urinary retention, urethral calculus followed by . With recent suprapubic catheter insertion on 10/22/[address] De La Cruz and subsequent removal. Patient was most recently seen and evaluated in the emergency department on 02/05 with complaints of left lower quadrant pain radiating to the left flank as well as hip and groin area. UA during that visit with small amount of leukocyte Estrace and occult blood, culture grew 50-100,000 of mixed gram-positive kay. There was no leukocytosis at that time and neutrophils were mildly elevated at 84%. He was offered a CT scan however refused as he had had one done in September 2017. He was discharged with Macrobid 100 mg twice a day for 10 days. He returns today once again today accompanied by ex- due to increasing confusion, generalized weakness, difficulty ambulating which has progressively worsened over the past 2 days according to ER documentation. During my visit patient is evaluated in ER bay with no family or ex- at bedside. He is lethargic but arousable, confused and oriented only to self. He does follow directions however is a poor historian given his mental status. He denies any pain or discomfort however suprapubic tenderness is noted on exam. HPI limited secondary to his mental status. Review of Systems ROS Limitations: Altered Mental Status, Poor Historian Except as stated in HPI: all other systems reviewed are Neg Past Family Social History Past Medical History From review of EMR Prostate cancer status post radiation Frequent UTIs Urethral calculus Diplopia Past Surgical History From review of EMR Suprapubic catheter with subsequent removal Appendectomy Tonsillectomy Bilateral ear surgery Left shoulder surgery Left knee surgery Laminectomy Tumor removal from vocal cords Reported Medications Reported Meds & Active Scripts Active Macrobid (Nitrofurantoin Monohydrate Macrocrystals) 100 Mg Capsule 100 Mg PO BID 10 Days Reported Hydrocodone-Acetaminophen 10-325 mg Tab 1 Tab PO Q6H PRN Allergies: Coded Allergies: morphine (Verified Adverse Reaction, Severe, 02/05/18) "ALTERED MENTAL AND HALLUCINATIONS" Family History Patient unable to provide family history due to mental status. Social History Patient unable to provide social history due to mental status. Physical Exam Vital Signs Vital Signs Date Time Temp Pulse Resp B/P (MAP) Pulse Ox O2 Delivery O2 Flow Rate FiO2 02/07/18 16:15 81 17 141/78 (99) 96 02/07/18 15:12 75 18 137/65 (89) 96 Room Air 02/07/18 12:05 98.6 91 18 139/80 (99) 96 Room Air Physical Exam GENERAL: Well-nourished, well-developed elderly male. In no acute distress but confused. SKIN: No rashes, ecchymoses or lesions. Cool and dry. HEAD: Atraumatic. Normocephalic. EYES: Pupils equal round. Opens eyes only momentarily. No scleral icterus. No injection or drainage. ENT: Nose without bleeding, purulent drainage. Throat without erythema. Airway patent. Dry mucous membranes. NECK: Trachea midline. No JVD. Supple, nontender. CARDIOVASCULAR: Regular rate and rhythm without murmurs, gallops, or rubs. RESPIRATORY: Clear to auscultation, diminished at bases likely secondary to poor effort. Breath sounds equal bilaterally. No wheezes, rales, or rhonchi. GASTROINTESTINAL: Abdomen soft, nondistended. No palpable masses. No guarding. Normal active bowel sounds. Suprapubic tenderness with palpation. Healed suprapubic catheter site noted. MUSCULOSKELETAL: Extremities without clubbing, cyanosis, or edema. No joint tenderness, effusion, or edema noted. No calf tenderness. NEUROLOGICAL: Lethargic with confusion but arousable, oriented to self. Follows simple commands. Cranial nerves II through XII grossly intact. Motor and sensory grossly within normal limits. 5/5 muscle strength in all muscle groups. Speech is clear, no facial droop. Laboratory Laboratory Tests Test 02/07/18 12:32 02/07/18 13:45 02/07/18 15:54 02/07/18 16:08 White Blood Count 8.8 Red Blood Count 4.74 Hemoglobin 13.4 Hematocrit 40.8 Mean Corpuscular Volume 86.0 Mean Corpuscular Hemoglobin 28.1 Mean Corpuscular Hemoglobin Concent 32.7 Red Cell Distribution Width 15.8 Platelet Count 194 Mean Platelet Volume 7.8 Neutrophils (%) (Auto) 92.1 Lymphocytes (%) (Auto) 1.7 Monocytes (%) (Auto) 5.9 Eosinophils (%) (Auto) 0.0 Basophils (%) (Auto) 0.3 Neutrophils # (Auto) 8.1 Lymphocytes # (Auto) 0.1 Monocytes # (Auto) 0.5 Eosinophils # (Auto) 0.0 Basophils # (Auto) 0.0 CBC Comment DIFF FINAL Differential Comment Urine Color YELLOW Urine Turbidity HAZY Urine pH 5.5 Urine Specific [place] 1.024 Urine Protein 30 Urine Glucose (UA) NEG Urine Ketones 40 Urine Occult Blood MOD Urine Nitrite NEG Urine Bilirubin NEG Urine Urobilinogen LESS THAN 2.0 Urine Leukocyte Esterase LARGE Urine RBC 12 Urine WBC 73 Urine Squamous Epithelial Cells 2 Urine Bacteria RARE Urine Hyaline Casts 2 Urine Mucus FEW Microscopic Urinalysis Comment CULTURE INDICATED Blood Urea Nitrogen 29 Creatinine 1.70 Random Glucose 89 Total Protein 7.7 Albumin 3.5 Calcium Level 8.4 Alkaline Phosphatase 107 Aspartate Amino Transf (AST/SGOT) 35 Alanine Aminotransferase (ALT/SGPT) 19 Total Bilirubin 1.0 Sodium Level 141 Potassium Level 4.7 Chloride Level 108 Carbon Dioxide Level 23.2 Anion Gap 10 Estimat Glomerular Filtration Rate 38 Lactic Acid Level 1.2 Blood Gas Puncture Site DRAWN BY ARIANA LT RADIAL Blood Gas Patient Temperature 98.6 98.6 Venous Blood pH 7.43 Venous Blood Partial Pressure CO2 31 Venous Blood Partial Pressure O2 24 Venous Blood HCO3 21 Venous Blood Oxygen Saturation 43 Venous Blood Oxygen Content 7.2 Venous Blood Base Excess -3.2 Oxygen Delivery Device ROOM AIR NASAL CANNULA Blood Gas Inspired Oxygen 21 Blood Gas HCO3 20 Blood Gas Base Excess -3.4 Blood Gas Oxygen Saturation 93 Arterial Blood pH 7.49 Arterial Blood Partial Pressure CO2 26 Arterial Blood Partial Pressure O2 66 Arterial Blood Oxygen Content 16.3 Arterial Blood Carboxyhemoglobin 1.5 Arterial Blood Methemoglobin 0.7 Blood Gas Hemoglobin 12.5 Blood Gas Liter Flow 2 Date/Time Source Procedure Growth Status 02/07/18 13:50 Blood Peripheral Aerobic Blood Culture Pending Received 02/07/18 13:50 Blood Peripheral Anaerobic Blood Culture Pending Received 02/07/18 12:32 Urine Clean Catch Urine Culture Pending Received Result Diagram: 02/07/18 1232 02/07/18 1232 Imaging Last Impressions Head CT 02/07/18 0000 Signed Impressions: Service Date/Time: January 15:37 - CONCLUSION: Nothing acute. Luis Mooney MD Chest X-Ray 02/07/18 0000 Signed Impressions: Service Date/Time: January 13:10 - CONCLUSION: No definite acute pulmonary infiltrates. Mild pulmonary venous congestion. Persistent elevation of the right hemidiaphragm. Marshall Lantigua MD Abdomen/Pelvis CT 02/07/18 0000 Signed Impressions: Service Date/Time: January 16:42 - CONCLUSION: 1. There is stable nonobstructing stones in the left kidney. 2. Mild prominence of the left renal pelvis with some questionable edema in the region of the left renal pelvis. This raises the possibility of an inflammatory process such as pyelonephritis. Recommend correlation with UA and laboratory values. 3. Diffuse diverticulosis without inflammatory changes. 4. No other significant changes are seen compared to the prior study. Marshall Lantigua MD Caprini VTE Risk Assessment Caprini VTE Risk Assessment: Mod/High Risk (score >= 2) Caprini Risk Assessment Model Point Value = 1 Point Value = 2 Point Value = 3 Point Value = 5 Age 41-60 Minor surgery BMI > 25 kg/m2 Swollen legs Varicose veins or History of unexplained or recurrent spontaneous Oral contraceptives or hormone replacement Sepsis (< 1 month) Serious lung disease, including pneumonia (< 1 month) Abnormal pulmonary function Acute myocardial infarction Congestive heart failure (< 1 month) History of inflammatory bowel disease Medical patient at bed rest Age 61-74 Arthroscopic surgery Major open surgery (> 45 min) Laparoscopic surgery (> 45 min) Malignancy Confined to bed (> 72 hours) Immobilizing plaster cast Central venous access Age >= 75 History of VTE Family history of VTE Factor V Leiden Prothrombin [id number] Lupus anticoagulant Anticardiolipin antibodies Elevated serum homocysteine Heparin-induced thrombocytopenia Other congenital or acquired thrombophilia Stroke (< 1 month) Elective arthroplasty Hip, pelvis, or leg fracture Acute spinal cord injury (< 1 month) Prophylaxis Regimen Total Risk Factor Score Risk Level Prophylaxis Regimen 0-1 Low Early ambulation 2 Moderate Order ONE of the following: *Sequential Compression Device (SCD) *Heparin 5000 units SQ BID 3-4 Higher Order ONE of the following medications: *Heparin 5000 units SQ TID *Enoxaparin/Lovenox 40 mg SQ daily (WT < 150 kg, CrCl > 30 mL/min) *Enoxaparin/Lovenox 30 mg SQ daily (WT < 150 kg, CrCl > 10-29 mL/min) *Enoxaparin/Lovenox 30 mg SQ BID (WT < 150 kg, CrCl > 30 mL/min) AND/OR *Sequential Compression Device (SCD) 5 or more Highest Order ONE of the following medications: *Heparin 5000 units SQ TID (Preferred with Epidurals) *Enoxaparin/Lovenox 40 mg SQ daily (WT < 150 kg, CrCl > 30 mL/min) *Enoxaparin/Lovenox 30 mg SQ daily (WT < 150 kg, CrCl > 10-29 mL/min) *Enoxaparin/Lovenox 30 mg SQ BID (WT < 150 kg, CrCl > 30 mL/min) AND *Sequential Compression Device (SCD) Assessment and Plan Assessment and Plan 83-year-old male with past medical history significant for prostate cancer s/p radiation treatment in 2007, recurrent UTIs, urinary retention, urethral calculus followed by . With recent suprapubic catheter insertion on 10/22/[address] De La Cruz and subsequent removal. Recently seen and evaluated in the emergency department 2 days ago with complaints of suprapubic pain. Patient was discharged with prescription for Macrobid, returns today due to increased confusion, generalized weakness, unsteady gait which has been progressively worsening. Complicated UTI-failed outpatient treatment Pyelonephritis Sepsis (HR>90, Neutrophil bands >10%, and known/suspected infection site) -UA completed in the ED reviewed, largely positive, culture pending -CBC with no leukocytosis, elevated neutrophil count at 92.1, afebrile on arrival. -Blood cultures 2 collected, pending -Lactic acid 1.2, recheck in 6 hours -CT of the abdomen and pelvis reviewed, stable nonobstructing stones in the left kidney, mild prominence of the left renal pelvis with some questionable edema in the region of the left renal pelvis, suggestive of pyelonephritis. Diffuse diverticulosis without inflammatory changes. -Patient received IV ceftriaxone in the ED -Continue ceftriaxone, continue following urine culture and blood cultures and adjust medications accordingly. MISSY-multifactorial, pyelonephritis and mild dehydration -Creatinine 1.7, BUN 29, GFR 38, consistent with mild dehydration, patient also appears to be mildly dehydrated on exam. -Chest x-ray reviewed, no acute pulmonary infiltrates but did demonstrate mild pulmonary venous congestion with persistent elevation of right hemidiaphragm. No noted history of CHF -Appears mildly dehydrated on exam, BNP 71 - Hydration with NS@84/hr -Recheck labs in the a.m. Altered mental status-secondary to pyelonephritis -Head CT reviewed, no acute abnormality noted. -Continue treatment for infection and monitor for improvement. DVT prophylaxis-SCDs and sub q. heparin. Discussed Condition With Physician Certification 2 Midnight Certification Type: Admission for Inpatient Services Order for Inpatient Services The services are ordered in accordance with Medicare regulations or non- Medicare payer requirements, as applicable. In the case of services not specified as inpatient-only, they are appropriately provided as inpatient services in accordance with the 2-midnight benchmark. Estimated LOS (days): 3 days is the estimated time the patient will need to remain in the hospital, assuming treatment plan goals are met and no additional complications. Post-Hospital Plan: Not yet determined Justice Mena February 07, 2018 16:57
--- NOTE | 2018-02-07 16:58 | PD ---
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 Yang 2 days ago and was diagnosed with a urinary tract infection. He was started on Macrobid. He has been taking it but his symptoms are worsening. He is also still complaining of some left lower quadrant abdominal pain. History is limited as the patient is a poor historian. [facility] Past Medical History Arthritis: Yes Asthma: No Autoimmune Disease: No Heart Rhythm Problems: No Cancer: Yes (PROSTATE CA 2007) Cardiovascular Problems: No High Cholesterol: No Chemotherapy: No Chest Pain: No Congestive Heart Failure: No COPD: No Cerebrovascular Accident: No Diabetes: No Diminished Hearing: Yes GERD: Yes Genitourinary: Yes ([place] PROSTATE, URINARY RETENTION) Headaches: No Hepatitis: No Hiatal Hernia: Yes Herniated Disk: Yes Immune Disorder: No Kidney Stones: No Musculoskeletal: Yes (LEFT ARM LIMITED MOVEMENT) Neurologic: Yes (DIPLOPIA) Psychiatric: No Reproductive: No Respiratory: No Immunizations Current: Yes Migraines: No Radiation Therapy: Yes Renal Failure: No Seizures: No Sickle Cell Disease: No Sleep Apnea: No Thyroid Disease: No Ulcer: No ?: Not Past Surgical History Abdominal Surgery: Yes (APPENDECTOMY) AICD: No Appendectomy: Yes Arteriovenous Shunt: No Cardiac Surgery: No 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) Endocrine Surgery: No Eye Surgery: No Genitourinary Surgery: Yes (PROSTATE SEED REMOVAL) Gynecologic Surgery: No Insulin Pump: No Joint Replacement: Yes (LEFT SHOULDER, LEFT KNEE) Neurologic Surgery: Yes (LAMINECTOMY) Oral Surgery: Yes (TONSILLECTOMY) Pacemaker: No Prostatectomy: Yes (2002) Thoracic Surgery: No Tonsillectomy: Yes () Other Surgery: Yes ( 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) Social History Alcohol Use: No Tobacco Use: No Substance Use: No Allergies-Medications (Allergen,Severity, Reaction): Coded Allergies: morphine (Verified Adverse Reaction, Severe, 02/05/18) "ALTERED MENTAL AND HALLUCINATIONS" Reported Meds & Prescriptions Reported Meds & Active Scripts Active Macrobid (Nitrofurantoin Monohydrate Macrocrystals) 100 Mg Capsule 100 Mg PO BID 10 Days Reported Hydrocodone-Acetaminophen 10-325 mg Tab 1 Tab PO Q6H PRN Review of Systems ROS Limitations: Altered Mental Status Physical Exam Narrative GENERAL: Frail elderly male in no acute distress SKIN: Focused skin assessment warm and dry. HEAD: Atraumatic. Normocephalic. EYES: Pupils equal and round. No injection or drainage. ENT: Moist mucous membranes NECK: Trachea midline. CARDIOVASCULAR: Regular rate and rhythm. No murmur appreciated. RESPIRATORY: Tachypneic with no wheezing or rales GASTROINTESTINAL: Abdomen soft, tender to palpation in the left lower quadrant with no rebound or guarding. MUSCULOSKELETAL: No obvious deformities. NEUROLOGICAL: Somnolent, confused and somewhat slow to answer questions. no obvious cranial nerve deficits. Moving all extremities. Data Data Last Documented VS Vital Signs Date Time Temp Pulse Resp B/P (MAP) Pulse Ox O2 Delivery O2 Flow Rate FiO2 02/07/18 16:15 81 17 141/78 (99) 96 02/07/18 15:12 Room Air 02/07/18 12:05 98.6 Orders Orders Complete Blood Count With Diff (02/07/18 12:25) Comprehensive Metabolic Panel (02/07/18 12:25) Urinalysis - C+S If Indicated (02/07/18 12:25) Blood Culture (02/07/18 12:48) Lactic Acid (02/07/18 12:48) Chest, Single Ap (02/07/18 ) Urine Culture (02/07/18 12:32) Ct Brain W/O Iv Contrast(Rout) (02/07/18 ) B-Type Natriuretic Peptide (02/07/18 15:28) Blood Gas Venous (Vbg) (02/07/18 15:28) Ceftriaxone Inj (Rocephin Inj) (02/07/18 16:00) Ct Abd/Pel W/O Iv Contrast (02/07/18 ) Arterial Blood Gas (Abg) (02/07/18 16:08) Admit Order (Ed Use Only) (02/07/18 16:43) Labs Laboratory Tests Test 02/07/18 12:32 02/07/18 13:45 02/07/18 15:54 02/07/18 16:08 White Blood Count 8.8 TH/MM3 Red Blood Count 4.74 MIL/MM3 Hemoglobin 13.4 GM/DL Hematocrit 40.8 % Mean Corpuscular Volume 86.0 FL Mean Corpuscular Hemoglobin 28.1 PG Mean Corpuscular Hemoglobin Concent 32.7 % Red Cell Distribution Width 15.8 % Platelet Count 194 TH/MM3 Mean Platelet Volume 7.8 FL Neutrophils (%) (Auto) 92.1 % Lymphocytes (%) (Auto) 1.7 % Monocytes (%) (Auto) 5.9 % Eosinophils (%) (Auto) 0.0 % Basophils (%) (Auto) 0.3 % Neutrophils # (Auto) 8.1 TH/MM3 Lymphocytes # (Auto) 0.1 TH/MM3 Monocytes # (Auto) 0.5 TH/MM3 Eosinophils # (Auto) 0.0 TH/MM3 Basophils # (Auto) 0.0 TH/MM3 CBC Comment DIFF FINAL Differential Comment Urine Color YELLOW Urine Turbidity HAZY Urine pH 5.5 Urine Specific [place] 1.024 Urine Protein 30 mg/dL Urine Glucose (UA) NEG mg/dL Urine Ketones 40 mg/dL Urine Occult Blood MOD Urine Nitrite NEG Urine Bilirubin NEG Urine Urobilinogen LESS THAN 2.0 MG/DL Urine Leukocyte Esterase LARGE Urine RBC 12 /hpf Urine WBC 73 /hpf Urine Squamous Epithelial Cells 2 /hpf Urine Bacteria RARE /hpf Urine Hyaline Casts 2 /lpf Urine Mucus FEW /lpf Microscopic Urinalysis Comment CULTURE INDICATED Blood Urea Nitrogen 29 MG/DL Creatinine 1.70 MG/DL Random Glucose 89 MG/DL Total Protein 7.7 GM/DL Albumin 3.5 GM/DL Calcium Level 8.4 MG/DL Alkaline Phosphatase 107 U/L Aspartate Amino Transf (AST/SGOT) 35 U/L Alanine Aminotransferase (ALT/SGPT) 19 U/L Total Bilirubin 1.0 MG/DL Sodium Level 141 MEQ/L Potassium Level 4.7 MEQ/L Chloride Level 108 MEQ/L Carbon Dioxide Level 23.2 MEQ/L Anion Gap 10 MEQ/L Estimat Glomerular Filtration Rate 38 ML/MIN Lactic Acid Level 1.2 mmol/L Blood Gas Puncture Site DRAWN BY ARIANA AC RADIAL Blood Gas Patient Temperature 98.6 98.6 Venous Blood pH 7.43 Venous Blood Partial Pressure CO2 31 mmHg Venous Blood Partial Pressure O2 24 mmHg Venous Blood HCO3 21 mmol/L Venous Blood Oxygen Saturation 43 % Venous Blood Oxygen Content 7.2 Vol % Venous Blood Base Excess -3.2 mmol/L Oxygen Delivery Device ROOM AIR NASAL CANNULA Blood Gas Inspired Oxygen 21 % Blood Gas HCO3 20 mmol/L Blood Gas Base Excess -3.4 mmol/L Blood Gas Oxygen Saturation 93 % Arterial Blood pH 7.49 Arterial Blood Partial Pressure CO2 26 mmHg Arterial Blood Partial Pressure O2 66 mmHG Arterial Blood Oxygen Content 16.3 Vol % Arterial Blood Carboxyhemoglobin 1.5 % Arterial Blood Methemoglobin 0.7 % Blood Gas Hemoglobin 12.5 G/DL Blood Gas Liter Flow 2 L/M MDM Medical Decision Making Medical Screen Exam Complete: Yes Emergency Medical Condition: Yes Interpretation(s) no leukocytosis renal insufficiency urinary tract infection: uti Last [address] 02/07/18 0000 Signed Impressions: Service Date/Time: January 15:37 - CONCLUSION: Nothing acute. Luis Mooney MD Chest X-Ray 02/07/18 0000 Signed Impressions: Service Date/Time: January 13:10 - CONCLUSION: No definite acute pulmonary infiltrates. Mild pulmonary venous congestion. Persistent elevation of the right hemidiaphragm. Marshall Lantigua MD Abdomen/Pelvis CT 02/07/18 0000 Signed Impressions: Service Date/Time: January 16:42 - CONCLUSION: 1. There is stable nonobstructing stones in the left kidney. 2. Mild prominence of the left renal pelvis with some questionable edema in the region of the left renal pelvis. This raises the possibility of an inflammatory process such as pyelonephritis. Recommend correlation with UA and laboratory values. 3. Diffuse diverticulosis without inflammatory changes. 4. No other significant changes are seen compared to the prior study. Marshall Lantigua MD Differential Diagnosis urinary tract infection, pyelonephritis, sepsis, diverticulitis, stroke, subdural hematoma Narrative Course This is an 83 year old male who presents to the emergency department with altered mental status. He has a history of recurrent urinary tract infections and urethral stricture. Pt. was placed on a monitor and an IV was established. Labs are reassuring. U/a demonstrates a urinary tract infection persistent despite macrobid. CT demonstrates prominence of the left collecting system suggestive of pyelonephritis. Pt. will be admitted for IV antibiotics. Physician Communication Physician Communication Discussed with Dr. Ordonez Diagnosis Primary Impression: Pyelonephritis Admitting Information Admitting Physician Requests: Admit Bridget Mello MD February 07, 2018 16:58
[2018-02-07] MEDS ORDERED: SODIUM CHLORIDE 0.9% FLUSH 10 ML FLUSH IV FLUSH PRN (17:00)
[2018-02-07] MEDS ORDERED: SENNOSIDES 8.6 MG TAB PO PRN (17:00)
[2018-02-07] MEDS ORDERED: NALOXONE HCL 0.4 MG/ML AMP IV PUSH PRN (17:00)
[2018-02-07] MEDS: HEPARIN SODIUM - SQ 10,000 UNITS/ML VIAL SQ SCH (17:00)
[2018-02-07] MEDS ORDERED: MAGNESIUM HYDROXIDE SUSP 30 ML CUP PO PRN (17:00)
[2018-02-07] MEDS ORDERED: LACTULOSE SYRUP 20 GM/30 ML CUP PO PRN (17:00)
[2018-02-07] MEDS ORDERED: BISACODYL 10 MG SUPP RECTAL PRN (17:00)
[2018-02-07] MEDS ORDERED: METOCLOPRAMIDE HCL 10 MG/2 ML VIAL IV PUSH PRN (17:00)
--- NOTE | 2018-02-07 17:03 | RADRPT ---
EXAM DATE/TIME: 02/07/2018 16:42 [place] COMPARISON: CT ABDOMEN & PELVIS W/O CONTRAST, October 22, 2017, 16:17. INDICATIONS : Generalized weakness, hemodynamically unstable. ORAL CONTRAST: No oral contrast ingested. RADIATION DOSE: 14.88 CTDIvol (mGy) MEDICAL HISTORY : Carcinoma, prostate. Syncope. SURGICAL HISTORY : None. ENCOUNTER: Initial ACUITY: 1 week PAIN SCALE: Non-responsive LOCATION: lower quadrant TECHNIQUE: Volumetric scanning of the abdomen and pelvis was performed. Using automated exposure control and ad justment of the mA and/or kV according to patient size, radiation dose was kept as low as reasonably achievable to obtain optimal diagnostic quality images. DICOM format image data is available electro nically for review and comparison. FINDINGS: LOWER LUNGS: Atelectasis in the right lung base. Left lung base clear. LIVER: Homogeneous density without lesion. There is no dilation of the biliary tree. No calcified gallston es. SPLEEN: Normal size without lesion. PANCREAS: Within normal limits. KIDNEYS: There is stable nonobstructing stones again demonstrated in the mid and lower pole of the left kidney . There is a stable cyst along the lower pole of the left kidney measuring approximately 5.3 cm. No c alcified right renal stones or hydronephrosis. There is some mild prominence of the left collecting s ystem. There is some questionable edema in the renal pelvis location. ADRENAL GLANDS: Within normal limits. VASCULAR: There is no aortic aneurysm. BOWEL/MESENTERY: The stomach, small bowel, and colon demonstrate no acute abnormality. There is no free intraperitone al air or fluid. Diffuse diverticulosis of the descending and sigmoid colon without inflammatory villafana ges. ABDOMINAL WALL: Within normal limits. RETROPERITONEUM: There is no lymphadenopathy. BLADDER: No wall thickening or mass. REPRODUCTIVE: Within normal limits. INGUINAL: There is no lymphadenopathy or hernia. MUSCULOSKELETAL: Stable diffuse degenerative changes. CONCLUSION: 1. There is stable nonobstructing stones in the left kidney. 2. Mild prominence of the left renal pelvis with some questionable edema in the region of the left re nal pelvis. This raises the possibility of an inflammatory process such as pyelonephritis. Recommend correlation with UA and laboratory values. 3. Diffuse diverticulosis without inflammatory changes. 4. No other significant changes are seen compared to the prior study. Marshall Lantigua MD on February 07, 2018 at 16:56 Board Certified Radiologist. This report was verified electronically.
[2018-02-07 17:13] VITALS: O2SAT 96
[2018-02-07] MEDS: SODIUM CHLOR 0.9% 1000 ML INJ 1,000 ML IV SCH (18:40)
[2018-02-07 20:00] VITALS: BP 124/57; PULSE 63; RESP 21; TEMP 101.8; O2SAT 97
[2018-02-07] MEDS: ACETAMINOPHEN 325 MG TAB PO PRN (20:51)
[2018-02-07] MEDS: SODIUM CHLORIDE 0.9% FLUSH 10 ML FLUSH IV FLUSH SCH (20:52)
[2018-02-07] MEDS: DOCUSATE SODIUM 50 MG/SENNA 8.6 MG TAB PO SCH (20:52)
[2018-02-07 22:31] VITALS: TEMP 101.4
[2018-02-08 00:31] VITALS: BP 104/55; PULSE 74; RESP 21; TEMP 99.8; O2SAT 94
[2018-02-08 06:14] LABS: AUTOMATED NEUTROPHIL # 5.7 TH/MM3 (1.8-7.7); BASOPHIL % 0.2 % (0.0-2.0); HEMOGLOBIN 12.5 GM/DL (13.0-17.0); LYMPH % 1.2 % (9.0-44.0); LYMPHOCYTE # 0.1 TH/MM3 (1.0-4.8); MEAN CELL VOLUME 85.8 FL (80.0-100.0); MEAN CORPUSCULAR HEMOGLOBIN 28.9 PG (27.0-34.0); MEAN CORPUSCULAR HGB CONC 33.7 % (32.0-36.0); MEAN PLATELET VOLUME 7.7 FL (7.0-11.0); MONO % 6.8 % (0.0-8.0); MONOCYTE # 0.4 TH/MM3 (0-0.9); NEUT % 91.8 % (16.0-70.0); PLATELET COUNT 130 TH/MM3 (150-450); RED BLOOD COUNT 4.32 MIL/MM3 (4.50-5.90); RED CELL DISTRIBUTION WIDTH 15.4 % (11.6-17.2); WHITE BLOOD COUNT 6.2 TH/MM3 (4.0-11.0)
[2018-02-08] MEDS: HEPARIN SODIUM - SQ 10,000 UNITS/ML VIAL SQ SCH ×2 (06:23→15:25)
[2018-02-08] MEDS: SODIUM CHLOR 0.9% 1000 ML INJ 1,000 ML IV SCH ×3 (06:24→16:21)
[2018-02-08 06:34] LABS: BICARBONATE 19.9 MEQ/L (21.0-32.0); CALCIUM 8.1 MG/DL (8.5-10.1); CREATININE 1.59 MG/DL (0.60-1.30)
[2018-02-08 08:00] VITALS: BP 121/51; PULSE 61; RESP 17; TEMP 100.3; O2SAT 96
[2018-02-08] MEDS: SODIUM CHLORIDE 0.9% FLUSH 10 ML FLUSH IV FLUSH SCH ×2 (09:00→21:00)
[2018-02-08] MEDS ORDERED: SODIUM CHLOR 0.9% 1000 ML INJ 1,000 ML IV ONE (10:30)
[2018-02-08] MEDS: DOCUSATE SODIUM 50 MG/SENNA 8.6 MG TAB PO SCH ×2 (10:56→21:00)
--- NOTE | 2018-02-08 11:05 | HHI.PR ---
Subjective Remarks Nursing reports that the patient is having substantial pain. Patient did have fevers last night. Patient himself does admit to having pain over his left lower backside. Objective Vital Signs Date Time Temp Pulse Resp B/P (MAP) Pulse Ox O2 Delivery O2 Flow Rate FiO2 02/08/18 10:36 Nasal Cannula 2.00 02/08/18 08:00 100.3 61 17 121/51 (74) 96 02/08/18 00:31 99.8 74 21 104/55 (71) 94 02/07/18 22:31 101.4 02/07/18 20:00 101.8 63 21 124/57 (79) 97 02/07/18 17:13 96 Nasal Cannula 2.00 02/07/18 16:15 81 17 141/78 (99) 96 02/07/18 15:12 75 18 137/65 (89) 96 Room Air 02/07/18 12:05 98.6 91 18 139/80 (99) 96 Room Air I/O 02/07/18 02/07/18 02/07/18 02/08/18 02/08/18 02/08/18 07:00 15:00 23:00 07:00 15:00 23:00 Output Total 380 ml Balance -380 ml Output Urine Total 380 ml # Voids 2 Result Diagram: 02/08/18 0430 02/08/18 0430 Objective Remarks Unlabored breathing, left lung field is clear, right lung field sounds as if it has positive bowel sounds which could be explained by the elevated right hemidiaphragm on the chest x-ray Abdomen is soft Has mild to moderate tenderness to palpation on the left CVA Patient is alert and oriented 2, has slowed responses but is awake A/P Assessment and Plan 83-year-old male with past medical history significant for prostate cancer s/p radiation treatment in 2007, recurrent UTIs, urinary retention, urethral calculus followed by . With recent suprapubic catheter insertion on 10/22/[address] De La Cruz and subsequent removal. Recently seen and evaluated in the emergency department 2 days ago with complaints of suprapubic pain. Patient was discharged with prescription for Macrobid, returns today due to increased confusion, generalized weakness, unsteady gait which has been progressively worsening. Sepsis -Suspected source is pyelonephritis -Blood cultures 2 collected, pending Suspected pyelonephritis - CT of the abdomen and pelvis suggestive of possible pyelonephritis; due to pain will start IV Dilaudid 0.6 mg every 4 hours given morphine allergy/adverse reaction documented in history -Continue Rocephin, if fevers continue to spike prior to cultures coming back , will escalate antibiotics MISSY-multifactorial, pyelonephritis and mild dehydration -Creatinine 1.7, BUN 29, GFR 38, consistent with mild dehydration, patient also appears to be mildly dehydrated on exam. -Chest x-ray reviewed, no acute pulmonary infiltrates but did demonstrate mild pulmonary venous congestion with persistent elevation of right hemidiaphragm. No noted history of CHF -Appears mildly dehydrated on exam, BNP 71 - Hydration with NS@84/hr -Recheck labs in the a.m. Encephalopathy likely secondary to sepsis -Head CT is negative -Improving DVT prophylaxis-SCDs and sub q. heparin. Charlie Duval MD February 08, 2018 11:05
[2018-02-08] MEDS: HYDROmorphone HCL PF 0.5 MG/0.5 ML SYRINGE IV PUSH PRN ×3 (11:21→22:23)
[2018-02-08 12:04] VITALS: BP 106/56; PULSE 68; RESP 20; TEMP 99.6; O2SAT 93
[2018-02-08] MEDS: cefTRIAXone INJ 1,000 MG in SODIUM CHLORIDE 0.9% INJ 100 ML IV SCH (15:25)
[2018-02-08] MEDS: ACETAMINOPHEN 325 MG TAB PO PRN (15:26)
[2018-02-08 16:20] VITALS: TEMP 100.1
[2018-02-08] MEDS ORDERED: ASP: Documented ESBL, MDR A baumannii or P. aeruginosa PRN (17:00)
[2018-02-08] MEDS ORDERED: PHARMACY INFORMATION XX PRN (17:00)
[2018-02-08] MEDS: MEROPENEM INJ 500 MG in SODIUM CHLORIDE 0.9% INJ 100 ML IV SCH (17:58)
[2018-02-08 20:00] VITALS: BP 103/56; PULSE 70; RESP 20; TEMP 98.6; O2SAT 94
[2018-02-09] VITALS: BP 141/89; PULSE 85; RESP 20; TEMP 99.5; O2SAT 97
[2018-02-09] MEDS: SODIUM CHLOR 0.9% 1000 ML INJ 1,000 ML IV SCH ×2 (05:12→16:49)
[2018-02-09] MEDS: MEROPENEM INJ 500 MG in SODIUM CHLORIDE 0.9% INJ 100 ML IV SCH ×2 (06:40→17:34)
[2018-02-09] MEDS: HEPARIN SODIUM - SQ 10,000 UNITS/ML VIAL SQ SCH ×2 (06:46→16:49)
[2018-02-09] MEDS: HYDROmorphone HCL PF 0.5 MG/0.5 ML SYRINGE IV PUSH PRN ×3 (06:49→20:37)
[2018-02-09 08:00] VITALS: BP 131/69; PULSE 68; RESP 19; TEMP 98.1; O2SAT 98
[2018-02-09] MEDS: SODIUM CHLORIDE 0.9% FLUSH 10 ML FLUSH IV FLUSH SCH ×2 (08:16→20:36)
[2018-02-09] MEDS: DOCUSATE SODIUM 50 MG/SENNA 8.6 MG TAB PO SCH ×2 (08:17→20:36)
--- NOTE | 2018-02-09 08:50 | HHI.PR ---
Subjective Remarks This is a pleasant 83 y/o male with Prostate cancer status post Radiation therapy in 2007, Recurrent UTI, Urinary retention, Urethral calculus, recent suprapubic catheter insertion on 10/22/[address] De La Cruz and subsequent removal. Seen in ER and Offered a CT scan however refused as he had had one done in September 2017. He was discharged with Macrobid 100 mg twice a day for 10 days. He returns today once again today accompanied by ex- due to increasing confusion, generalized weakness, difficulty ambulating which has progressively worsened for two days before coming to ER. ID specialist consulted by Hospitalist yesterday due to fever awaiting for recommendations. he had a suprapubic catheter removed one month ago. had positive blood culture for Helena tropicalis , started on Diflucan awaiting for recommendations by ID specialist will give 400 mg by mouth due to Kidney Injury and GFR below 50. Objective Vital Signs Date Time Temp Pulse Resp B/P (MAP) Pulse Ox O2 Delivery O2 Flow Rate FiO2 02/09/18 08:00 98.1 68 19 131/69 (89) 98 02/09/18 00:00 99.5 85 20 141/89 (106) 97 02/08/18 20:30 Nasal Cannula 2.00 02/08/18 20:00 98.6 70 20 103/56 (72) 94 02/08/18 16:20 100.1 02/08/18 12:04 99.6 68 20 106/56 (73) 93 02/08/18 10:36 Nasal Cannula 2.00 I/O 02/08/18 02/08/18 02/08/18 02/09/18 02/09/18 02/09/18 07:00 15:00 23:00 07:00 15:00 23:00 Intake Total 2000 ml 120 ml Output Total 380 ml 600 ml Balance -380 ml 2000 ml -480 ml Intake Oral 120 ml IV Total 2000 ml Output Urine Total 380 ml 600 ml # Voids 2 # Bowel Movements 0 Result Diagram: 02/08/18 0430 02/08/18 0430 Imaging Last Impressions Head CT 02/07/18 0000 Signed Impressions: Service Date/Time: January 15:37 - CONCLUSION: Nothing acute. Luis Mooney MD Chest X-Ray 02/07/18 0000 Signed Impressions: Service Date/Time: January 13:10 - CONCLUSION: No definite acute pulmonary infiltrates. Mild pulmonary venous congestion. Persistent elevation of the right hemidiaphragm. Marshall Lantigua MD Abdomen/Pelvis CT 02/07/18 0000 Signed Impressions: Service Date/Time: January 16:42 - CONCLUSION: 1. There is stable nonobstructing stones in the left kidney. 2. Mild prominence of the left renal pelvis with some questionable edema in the region of the left renal pelvis. This raises the possibility of an inflammatory process such as pyelonephritis. Recommend correlation with UA and laboratory values. 3. Diffuse diverticulosis without inflammatory changes. 4. No other significant changes are seen compared to the prior study. Marshall Lantigua MD Procedures None Other Results Laboratory Tests Test 02/07/18 12:32 02/07/18 15:54 02/07/18 16:08 02/07/18 20:28 Urine Color YELLOW Urine Turbidity HAZY Urine pH 5.5 Urine Specific [place] 1.024 Urine Protein 30 mg/dL Urine Glucose (UA) NEG mg/dL Urine Ketones 40 mg/dL Urine Occult Blood MOD Urine Nitrite NEG Urine Bilirubin NEG Urine Urobilinogen LESS THAN 2.0 MG/DL Urine Leukocyte Esterase LARGE Urine RBC 12 /hpf Urine WBC 73 /hpf Urine Squamous Epithelial Cells 2 /hpf Urine Bacteria RARE /hpf Urine Hyaline Casts 2 /lpf Urine Mucus FEW /lpf Microscopic Urinalysis Comment CULTURE INDICATED Blood Urea Nitrogen 29 MG/DL Creatinine 1.70 MG/DL Random Glucose 89 MG/DL Total Protein 7.7 GM/DL Albumin 3.5 GM/DL Calcium Level 8.4 MG/DL Alkaline Phosphatase 107 U/L Aspartate Amino Transf (AST/SGOT) 35 U/L Alanine Aminotransferase (ALT/SGPT) 19 U/L Total Bilirubin 1.0 MG/DL Sodium Level 141 MEQ/L Potassium Level 4.7 MEQ/L Chloride Level 108 MEQ/L Carbon Dioxide Level 23.2 MEQ/L B-Type Natriuretic Peptide 71 PG/ML Venous Blood pH 7.43 Venous Blood Partial Pressure CO2 31 mmHg Venous Blood Partial Pressure O2 24 mmHg Venous Blood HCO3 21 mmol/L Venous Blood Oxygen Saturation 43 % Venous Blood Oxygen Content 7.2 Vol % Venous Blood Base Excess -3.2 mmol/L Blood Gas Inspired Oxygen 21 % Blood Gas Puncture Site LT RADIAL Blood Gas Patient Temperature 98.6 Blood Gas HCO3 20 mmol/L Blood Gas Base Excess -3.4 mmol/L Blood Gas Oxygen Saturation 93 % Arterial Blood pH 7.49 Arterial Blood Partial Pressure CO2 26 mmHg Arterial Blood Partial Pressure O2 66 mmHG Arterial Blood Oxygen Content 16.3 Vol % Arterial Blood Carboxyhemoglobin 1.5 % Arterial Blood Methemoglobin 0.7 % Blood Gas Hemoglobin 12.5 G/DL Oxygen Delivery Device NASAL CANNULA Blood Gas Liter Flow 2 L/M Lactic Acid Level 1.0 mmol/L Test 02/08/18 04:30 White Blood Count 6.2 TH/MM3 Red Blood Count 4.32 MIL/MM3 Hemoglobin 12.5 GM/DL Hematocrit 37.0 % Mean Corpuscular Volume 85.8 FL Mean Corpuscular Hemoglobin 28.9 PG Mean Corpuscular Hemoglobin Concent 33.7 % Red Cell Distribution Width 15.4 % Platelet Count 130 TH/MM3 Mean Platelet Volume 7.7 FL Neutrophils (%) (Auto) 91.8 % Lymphocytes (%) (Auto) 1.2 % Monocytes (%) (Auto) 6.8 % Eosinophils (%) (Auto) 0.0 % Basophils (%) (Auto) 0.2 % Neutrophils # (Auto) 5.7 TH/MM3 Lymphocytes # (Auto) 0.1 TH/MM3 Monocytes # (Auto) 0.4 TH/MM3 Eosinophils # (Auto) 0.0 TH/MM3 Basophils # (Auto) 0.0 TH/MM3 CBC Comment DIFF FINAL Differential Comment Blood Urea Nitrogen 33 MG/DL Creatinine 1.59 MG/DL Random Glucose 102 MG/DL Calcium Level 8.1 MG/DL Sodium Level 140 MEQ/L Potassium Level 3.8 MEQ/L Chloride Level 110 MEQ/L Carbon Dioxide Level 19.9 MEQ/L Anion Gap 10 MEQ/L Estimat Glomerular Filtration Rate 42 ML/MIN Objective Remarks GENERAL: No acute distress. SKIN: scaly areas in his face. HEAD: Atraumatic. Normocephalic. EYES: Pupils equal and round. No scleral icterus. No injection or drainage. ENT: No nasal bleeding or discharge. Mucous membranes pink and moist. NECK: Trachea midline. No JVD. CARDIOVASCULAR: Regular rate and rhythm. RESPIRATORY: No accessory muscle use. Clear to auscultation. Breath sounds equal bilaterally. GASTROINTESTINAL: Abdomen soft, non-tender, nondistended. Hepatic and splenic margins not palpable. MUSCULOSKELETAL: Extremities without clubbing, cyanosis, or edema. NEUROLOGICAL: Awake and alert. no focal deficits. Medications and IVs Current Medications Medications (Trade) Dose Ordered Sig/Chinmay Route Start Time Stop Time Status Last Admin Sodium Chloride 1,000 ml @ 84 mls/hr [id number] IV 02/07/18 17:00 02/09/18 05:12 (NS Flush) 2 ml UNSCH PRN IV FLUSH 02/07/18 17:00 (NS Flush) 2 ml BID IV FLUSH 02/07/18 21:00 02/07/18 20:52 (Tylenol) 650 mg Q4H PRN PO 02/07/18 17:00 02/08/18 15:26 (Reglan Inj) 5 mg Q6H PRN IV PUSH 02/07/18 17:00 (Heparin Inj) 5,000 units Q12H SQ 02/07/18 17:00 02/09/18 06:46 (Narcan Inj) 0.4 mg UNSCH PRN IV PUSH 02/07/18 17:00 (Stephy-Colace) 1 tab BID PO 02/07/18 21:00 02/09/18 08:17 (Milk Of Magnesia Liq) 30 ml Q12H PRN PO 02/07/18 17:00 (Senokot) 17.2 mg Q12H PRN PO 02/07/18 17:00 (Dulcolax Supp) 10 mg DAILY PRN RECTAL 02/07/18 17:00 (Lactulose Liq) 30 ml DAILY PRN PO 02/07/18 17:00 Ceftriaxone Sodium 1000 mg/ Sodium Chloride 100 ml @ 200 mls/hr Q24H IV 02/08/18 17:00 02/08/18 15:25 (Dilaudid Pf Inj) 0.6 mg Q4H PRN IV PUSH 02/08/18 11:15 02/09/18 06:49 (ASP Crit: Doc ESBL, MDR A baumannii or P aer) 1 UNSCH X1 PRN .XX 02/08/18 17:00 02/09/18 16:59 ([facility] Information) 1 UNSCH X1 PRN XX 02/08/18 17:00 02/09/18 16:59 Meropenem 500 mg/ Sodium Chloride 100 ml @ 200 mls/hr Q12H IV 02/08/18 18:00 02/09/18 06:40 A/P Assessment and Plan 83-year-old male with past medical history significant for prostate cancer s/p radiation treatment in 2007, recurrent UTIs, urinary retention, urethral calculus followed by . With recent suprapubic catheter insertion on 10/22/[address] De La Cruz and subsequent removal. Recently seen and evaluated in the emergency department 2 days ago with complaints of suprapubic pain. Patient was discharged with prescription for Macrobid, returns today due to increased confusion, generalized weakness, unsteady gait which has been progressively worsening. Sepsis -Suspected source is pyelonephritis, ipsilateral stone, has Helena tropicalis fungemia, started on Diflucan by mouth dose will be 800 mg first dose and continue 400 mg daily, but due to GFR below 50 will start 400 mg first dose and continue 200 mg daily until improves his renal function. awaiting for ID specialist recommendations. Suspected pyelonephritis - CT of the abdomen and pelvis suggestive of possible pyelonephritis; continue pa8in medicine and antibiotics, awaiting for ID specialist for recommendations. MISSY-multifactorial, pyelonephritis and mild dehydration -Creatinine 1.7, BUN 29, GFR 38, consistent with mild dehydration, patient also appears to be mildly dehydrated on exam. -Chest x-ray reviewed, no acute pulmonary infiltrates but did demonstrate mild pulmonary venous congestion with persistent elevation of right hemidiaphragm. No noted history of CHF -continue IV fluids and follow. Encephalopathy likely secondary to sepsis -Head CT is negative -Improving PT recommended for Discharge to SNF for Rehabilitation. DVT prophylaxis-SCDs and sub q. heparin. Discharge Planning Once cleared by ID specialist. Vikash Ojeda MD February 09, 2018 08:50
[2018-02-09] MEDS ORDERED: FLUCONAZOLE 200 MG TAB PO ONE ×2 (09:00→09:30)
[2018-02-09 11:57] LABS: BICARBONATE 22.2 MEQ/L (21.0-32.0); CALCIUM 7.7 MG/DL (8.5-10.1); CREATININE 1.16 MG/DL (0.60-1.30)
[2018-02-09 12:00] VITALS: BP 161/70; PULSE 79; RESP 19; TEMP 98.1; O2SAT 97
[2018-02-09 12:10] VITALS: O2SAT 98
[2018-02-09 16:00] VITALS: BP 159/76; PULSE 78; RESP 19; TEMP 97.6; O2SAT 98
[2018-02-09] MEDS: cefTRIAXone INJ 1,000 MG in SODIUM CHLORIDE 0.9% INJ 100 ML IV SCH (16:46)
--- NOTE | 2018-02-09 17:42 | PD.ID.CON ---
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 With recent suprapubic catheter insertion on 10/22/[address] De La Cruz and subsequent removal. Patient was most recently seen and evaluated in the emergency department on with complaints of left lower quadrant pain radiating to the left flank as well as hip and groin area culture grew 50-100,000 of mixed gram-positive kay. HIs CT scan was + for L sided pyelo (Mild prominence of the left renal pelvis with some questionable edema in the region of the left renal pelvis. This raises the possibility of an inflammatory process such as pyelonephritis. 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 Social History Patient unable to provide family history due to mental status. Physical Exam Vital Signs Vital Signs Date Time Temp Pulse Resp B/P (MAP) Pulse Ox O2 Delivery O2 Flow Rate FiO2 02/09/18 16:00 97.6 78 19 159/76 (103) 98 02/09/18 12:10 98 Nasal Cannula 2.00 02/09/18 12:00 98.1 79 19 161/70 (100) 97 02/09/18 08:00 98.1 68 19 131/69 (89) 98 02/09/18 00:00 99.5 85 20 141/89 (106) 97 02/08/18 20:30 Nasal Cannula 2.00 02/08/18 20:00 98.6 70 20 103/56 (72) 94 Physical Exam CONSTITUTIONAL/GENERAL: This is an adequately nourished patient, in no apparent distress. TUBES/LINES/DRAINS: SKIN: No jaundice, rashes, or lesions. Skin temperature appropriate. Not diaphoretic. HEAD: Atraumatic. Normocephalic. EYES: Pupils equal and round and reactive. Extraocular motions intact. No scleral icterus. No injection or drainage. Fundi not examined. ENT: Hearing grossly normal. Nose without bleeding or purulent drainage. Throat without visible erythema, exudates, masses, or lesions. NECK: Trachea midline. Supple, nontender. No palpable thyroid enlargement or nodularity. CARDIOVASCULAR: Regular rate and rhythm without murmurs, gallops, or rubs. No JVD. Peripheral pulses symmetric. RESPIRATORY/CHEST: Symmetric, unlabored respirations. Clear to auscultation. Breath sounds equal bilaterally. No wheezes, rales, or rhonchi. GASTROINTESTINAL: Abdomen soft, non-tender, nondistended. No hepato-splenomegaly , or palpable masses. No guarding. Bowel sounds present. GENITOURINARY: Without palpable bladder distension. Condom catheter in placce with cloudy urine SP opening cew recent SP cath MUSCULOSKELETAL: Extremities without clubbing, cyanosis, or edema. No joint tenderness or effusion noted. No calf tenderness. No mottling or clubbing. LYMPHATICS: No palpable cervical or supraclavicular adenopathy. NEUROLOGICAL: Awake and alert. Motor and sensory grossly within normal limits. Follows commands. Confiused, speech is mostly incoherent Moves all extremities. PSYCHIATRIC: No obvious anxiety/depression. no apparent hallucinations or other psychotic thought process. RN reports agitation Laboratory Laboratory Tests Test 02/09/18 11:20 Blood Urea Nitrogen 23 Creatinine 1.16 Random Glucose 102 Calcium Level 7.7 Sodium Level 141 Potassium Level 4.2 Chloride Level 110 Carbon Dioxide Level 22.2 Anion Gap 9 Estimat Glomerular Filtration Rate 60 Date/Time Source Procedure Growth Status 02/07/18 13:50 Blood Peripheral Aerobic Blood Culture - Final [place] Tropicalis Resulted 02/07/18 13:50 Blood Peripheral Anaerobic Blood Culture - Preliminary NO GROWTH IN 2 DAYS Resulted 02/07/18 12:32 Urine Clean Catch Urine Culture - Final 10-50,000 CFU/ML MIXED GRAM POSITIVE ... Complete Result Diagram: 02/08/18 0430 02/09/18 1120 Imaging Last Impressions Head CT 02/07/18 0000 Signed Impressions: Service Date/Time: January 15:37 - CONCLUSION: Nothing acute. Luis Mooney MD Chest X-Ray 02/07/18 0000 Signed Impressions: Service Date/Time: , February 07, 2018 13:10 - CONCLUSION: No definite acute pulmonary infiltrates. Mild pulmonary venous congestion. Persistent elevation of the right hemidiaphragm. Marshall Lantigua MD Abdomen/Pelvis CT 02/07/18 0000 Signed Impressions: Service Date/Time: January 16:42 - CONCLUSION: 1. There is stable nonobstructing stones in the left kidney. 2. Mild prominence of the left renal pelvis with some questionable edema in the region of the left renal pelvis. This raises the possibility of an inflammatory process such as pyelonephritis. Recommend correlation with UA and laboratory values. 3. Diffuse diverticulosis without inflammatory changes. 4. No other significant changes are seen compared to the prior study. Marshall Lantigua MD Assessment and Plan Assessment and Plan UTI, L sided pyelo complicated in a pt with ipsilateral stone Hel[place] tropicalis fungemia ? sorce - can be UTI, but would expect + urine clx for C tropicalis repeat BC High dose fluconazol 2 D echo ophthalm consult repeat UA< C+S dc meropenem Felipa Nelson MD February 09, 2018 17:42
[2018-02-09] MEDS: FLUCONAZOLE 400 MG PREMIX BAG 200 ML IV SCH (18:28)
[2018-02-09 20:00] VITALS: BP 148/71; PULSE 82; RESP 20; TEMP 98.2; O2SAT 99
[2018-02-09] MEDS: PIPERACIL-TAZO 3.375 GM PREMIX 50 ML IV SCH (23:45)
[2018-02-10] VITALS: BP 127/74; PULSE 66; RESP 20; TEMP 97.8; O2SAT 98
[2018-02-10] MEDS: PIPERACIL-TAZO 3.375 GM PREMIX 50 ML IV SCH ×4 (03:57→20:39)
[2018-02-10] MEDS: HEPARIN SODIUM - SQ 10,000 UNITS/ML VIAL SQ SCH ×2 (03:59→16:34)
[2018-02-10] MEDS: HYDROmorphone HCL PF 0.5 MG/0.5 ML SYRINGE IV PUSH PRN ×2 (05:50→20:44)
[2018-02-10] MEDS: SODIUM CHLOR 0.9% 1000 ML INJ 1,000 ML IV SCH (05:52)
[2018-02-10 08:00] VITALS: BP 128/64; PULSE 64; RESP 18; TEMP 97.7; O2SAT 98
[2018-02-10] MEDS: DOCUSATE SODIUM 50 MG/SENNA 8.6 MG TAB PO SCH ×2 (08:04→20:39)
[2018-02-10] MEDS: SODIUM CHLORIDE 0.9% FLUSH 10 ML FLUSH IV FLUSH SCH ×2 (08:04→20:40)
[2018-02-10] MEDS ORDERED: FLUCONAZOLE 200 MG TAB PO SCH ×2 (09:00)
[2018-02-10 09:18] VITALS: O2SAT 97
--- NOTE | 2018-02-10 10:53 | HHI.PR ---
Subjective Remarks This is a pleasant 83 y/o male with Prostate cancer status post Radiation therapy in 2007, Recurrent UTI, Urinary retention, Urethral calculus, recent suprapubic catheter insertion on 10/22/[address] De La Cruz and subsequent removal. Seen in ER and Offered a CT scan however refused as he had had one done in September 2017. He was discharged with Macrobid 100 mg twice a day for 10 days. He returns today once again today accompanied by ex- due to increasing confusion, generalized weakness, difficulty ambulating which has progressively worsened for two days before coming to ER. ID specialist consulted by Hospitalist yesterday due to fever awaiting for recommendations. he had a suprapubic catheter removed one month ago. had positive blood culture for [place] tropicalis , started on Diflucan awaiting for recommendations by ID specialist will give 400 mg by mouth due to Kidney Injury and GFR below 50. 5/20; Stable in his bedroom, discussed with nurse Miss Harrington, Seen by ID specialist recommended to continue High dose Fluconazole now his GFR has normalized, Echocardiogram, Ophthalmology consult, Repeated BC and UA and culture and sensitivity, Removed meropenem and continued Zosyn. No nausea, vomit or diarrhea. Objective Vital Signs Date Time Temp Pulse Resp B/P (MAP) Pulse Ox O2 Delivery O2 Flow Rate FiO2 02/10/18 08:05 Nasal Cannula 2.00 02/10/18 08:00 97.7 64 18 128/64 (85) 98 02/10/18 00:00 97.8 66 20 127/74 (91) 98 02/09/18 22:35 Nasal Cannula 2.00 02/09/18 20:00 98.2 82 20 148/71 (96) 99 02/09/18 16:00 97.6 78 19 159/76 (103) 98 02/09/18 12:10 98 Nasal Cannula 2.00 02/09/18 12:00 98.1 79 19 161/70 (100) 97 I/O 02/09/18 02/09/18 02/09/18 02/10/18 02/10/18 02/10/18 07:00 15:00 23:00 07:00 15:00 23:00 Intake Total 120 ml 820 ml Output Total 600 ml 600 ml 1300 ml Balance -480 ml 220 ml -1300 ml Intake Oral 120 ml 720 ml IV Total 100 ml Output Urine Total 600 ml 600 ml 1300 ml # Bowel Movements 0 0 1 Result Diagram: 02/08/18 0430 02/09/18 1120 Imaging Last Impressions Head CT 02/07/18 0000 Signed Impressions: Service Date/Time: January 15:37 - CONCLUSION: Nothing acute. Luis Mooney MD Chest X-Ray 02/07/18 0000 Signed Impressions: Service Date/Time: January 13:10 - CONCLUSION: No definite acute pulmonary infiltrates. Mild pulmonary venous congestion. Persistent elevation of the right hemidiaphragm. Marshall Lantigua MD Abdomen/Pelvis CT 02/07/18 0000 Signed Impressions: Service Date/Time: January 16:42 - CONCLUSION: 1. There is stable nonobstructing stones in the left kidney. 2. Mild prominence of the left renal pelvis with some questionable edema in the region of the left renal pelvis. This raises the possibility of an inflammatory process such as pyelonephritis. Recommend correlation with UA and laboratory values. 3. Diffuse diverticulosis without inflammatory changes. 4. No other significant changes are seen compared to the prior study. Marshall Lantigua MD Procedures None Other Results Laboratory Tests Test 02/07/18 12:32 02/07/18 15:54 02/07/18 16:08 02/07/18 20:28 Urine Color YELLOW Urine Turbidity HAZY Urine pH 5.5 Urine Specific [place] 1.024 Urine Protein 30 mg/dL Urine Glucose (UA) NEG mg/dL Urine Ketones 40 mg/dL Urine Occult Blood MOD Urine Nitrite NEG Urine Bilirubin NEG Urine Urobilinogen LESS THAN 2.0 MG/DL Urine Leukocyte Esterase LARGE Urine RBC 12 /hpf Urine WBC 73 /hpf Urine Squamous Epithelial Cells 2 /hpf Urine Bacteria RARE /hpf Urine Hyaline Casts 2 /lpf Urine Mucus FEW /lpf Microscopic Urinalysis Comment CULTURE INDICATED Blood Urea Nitrogen 29 MG/DL Creatinine 1.70 MG/DL Random Glucose 89 MG/DL Total Protein 7.7 GM/DL Albumin 3.5 GM/DL Calcium Level 8.4 MG/DL Alkaline Phosphatase 107 U/L Aspartate Amino Transf (AST/SGOT) 35 U/L Alanine Aminotransferase (ALT/SGPT) 19 U/L Total Bilirubin 1.0 MG/DL Sodium Level 141 MEQ/L Potassium Level 4.7 MEQ/L Chloride Level 108 MEQ/L Carbon Dioxide Level 23.2 MEQ/L B-Type Natriuretic Peptide 71 PG/ML Venous Blood pH 7.43 Venous Blood Partial Pressure CO2 31 mmHg Venous Blood Partial Pressure O2 24 mmHg Venous Blood HCO3 21 mmol/L Venous Blood Oxygen Saturation 43 % Venous Blood Oxygen Content 7.2 Vol % Venous Blood Base Excess -3.2 mmol/L Blood Gas Inspired Oxygen 21 % Blood Gas Puncture Site LT RADIAL Blood Gas Patient Temperature 98.6 Blood Gas HCO3 20 mmol/L Blood Gas Base Excess -3.4 mmol/L Blood Gas Oxygen Saturation 93 % Arterial Blood pH 7.49 Arterial Blood Partial Pressure CO2 26 mmHg Arterial Blood Partial Pressure O2 66 mmHG Arterial Blood Oxygen Content 16.3 Vol % Arterial Blood Carboxyhemoglobin 1.5 % Arterial Blood Methemoglobin 0.7 % Blood Gas Hemoglobin 12.5 G/DL Oxygen Delivery Device NASAL CANNULA Blood Gas Liter Flow 2 L/M Lactic Acid Level 1.0 mmol/L Test 02/08/18 04:30 02/09/18 11:20 White Blood Count 6.2 TH/MM3 Red Blood Count 4.32 MIL/MM3 Hemoglobin 12.5 GM/DL Hematocrit 37.0 % Mean Corpuscular Volume 85.8 FL Mean Corpuscular Hemoglobin 28.9 PG Mean Corpuscular Hemoglobin Concent 33.7 % Red Cell Distribution Width 15.4 % Platelet Count 130 TH/MM3 Mean Platelet Volume 7.7 FL Neutrophils (%) (Auto) 91.8 % Lymphocytes (%) (Auto) 1.2 % Monocytes (%) (Auto) 6.8 % Eosinophils (%) (Auto) 0.0 % Basophils (%) (Auto) 0.2 % Neutrophils # (Auto) 5.7 TH/MM3 Lymphocytes # (Auto) 0.1 TH/MM3 Monocytes # (Auto) 0.4 TH/MM3 Eosinophils # (Auto) 0.0 TH/MM3 Basophils # (Auto) 0.0 TH/MM3 CBC Comment DIFF FINAL Differential Comment Blood Urea Nitrogen 23 MG/DL Creatinine 1.16 MG/DL Random Glucose 102 MG/DL Calcium Level 7.7 MG/DL Sodium Level 141 MEQ/L Potassium Level 4.2 MEQ/L Chloride Level 110 MEQ/L Carbon Dioxide Level 22.2 MEQ/L Anion Gap 9 MEQ/L Estimat Glomerular Filtration Rate 60 ML/MIN Objective Remarks GENERAL: No acute distress. SKIN: scaly areas in his face. HEAD: Atraumatic. Normocephalic. EYES: Pupils equal and round. No scleral icterus. No injection or drainage. ENT: No nasal bleeding or discharge. Mucous membranes pink and moist. NECK: Trachea midline. No JVD. CARDIOVASCULAR: Regular rate and rhythm. RESPIRATORY: No accessory muscle use. Clear to auscultation. Breath sounds equal bilaterally. GASTROINTESTINAL: Abdomen soft, non-tender, nondistended. Hepatic and splenic margins not palpable. MUSCULOSKELETAL: Extremities without clubbing, cyanosis, or edema. NEUROLOGICAL: Awake and alert. no focal deficits. Medications and IVs Current Medications Medications (Trade) Dose Ordered Sig/Chinmay Route Start Time Stop Time Status Last Admin Sodium Chloride 1,000 ml @ 84 mls/hr [id number] IV 02/07/18 17:00 02/10/18 05:52 (NS Flush) 2 ml UNSCH PRN IV FLUSH 02/07/18 17:00 (NS Flush) 2 ml BID IV FLUSH 02/07/18 21:00 02/09/18 20:36 (Tylenol) 650 mg Q4H PRN PO 02/07/18 17:00 02/08/18 15:26 (Reglan Inj) 5 mg Q6H PRN IV PUSH 02/07/18 17:00 (Heparin Inj) 5,000 units Q12H SQ 02/07/18 17:00 02/10/18 03:59 (Narcan Inj) 0.4 mg UNSCH PRN IV PUSH 02/07/18 17:00 (Stephy-Colace) 1 tab BID PO 02/07/18 21:00 02/09/18 20:36 (Milk Of Magnesia Liq) 30 ml Q12H PRN PO 02/07/18 17:00 (Senokot) 17.2 mg Q12H PRN PO 02/07/18 17:00 (Dulcolax Supp) 10 mg DAILY PRN RECTAL 02/07/18 17:00 02/10/18 04:14 (Lactulose Liq) 30 ml DAILY PRN PO 02/07/18 17:00 (Dilaudid Pf Inj) 0.6 mg Q4H PRN IV PUSH 02/08/18 11:15 02/10/18 05:50 Fluconazole/ Sodium Chloride 200 ml @ 100 mls/hr Q24H IV 02/09/18 18:00 02/09/18 18:28 Piperacillin Sod/ Tazobactam Sod 50 ml @ 100 mls/hr Q6H IV 02/09/18 22:00 02/10/18 08:05 A/P Assessment and Plan 83-year-old male with past medical history significant for prostate cancer s/p radiation treatment in 2007, recurrent UTIs, urinary retention, urethral calculus followed by . With recent suprapubic catheter insertion on 10/22/[address] De La Cruz and subsequent removal. Recently seen and evaluated in the emergency department 2 days ago with complaints of suprapubic pain. Patient was discharged with prescription for Macrobid, returns today due to increased confusion, generalized weakness, unsteady gait which has been progressively worsening. Sepsis -Suspected source is pyelonephritis, ipsilateral stone, has [place] tropicalis fungemia, started on Diflucan by mouth dose will be 800 mg first dose and continue 400 mg daily, but due to GFR below 50 will start 400 mg first dose and continue 200 mg daily until improves his renal function. as per ID continue Diflucan high dose IV. now his GFR has normalized, Echocardiogram, Ophthalmology consult, Repeated BC and UA and culture and sensitivity, Removed meropenem and continued Zosyn. No nausea, vomit or diarrhea. Suspected pyelonephritis - CT of the abdomen and pelvis suggestive of possible pyelonephritis; continue pa8in medicine and antibiotics. MISSY-multifactorial, pyelonephritis and mild dehydration Improved. removed IV fluids. Encephalopathy likely secondary to sepsis Improved. -Head CT is negative. PT recommended for Discharge to SNF for Rehabilitation. DVT prophylaxis-SCDs and sub q. heparin. Discharge Planning Once cleared by ID specialist. Vikash Ojeda MD February 10, 2018 10:52
[2018-02-10 12:00] VITALS: BP 122/56; PULSE 63; RESP 18; TEMP 98; O2SAT 95
[2018-02-10] MEDS: guaiFENesin E.R. 600 MG TAB PO SCH ×2 (12:11→20:39)
[2018-02-10] MEDS: RESP: ALBUTEROL 2.5 MG/IPRATROPIUM 0.5 MG NEB (SCH) NEB ×3 (13:51→20:43)
[2018-02-10 16:00] VITALS: BP 107/53; PULSE 57; RESP 18; TEMP 98; O2SAT 98
[2018-02-10] MEDS: FLUCONAZOLE 400 MG PREMIX BAG 200 ML IV SCH (16:35)
[2018-02-10 20:45] VITALS: O2SAT 97
[2018-02-11] VITALS (7 sets, daily range): BP systolic 115–158; BP diastolic 57–74; PULSE 58–80; RESP 17–20; TEMP 97.2–98; O2SAT 96–98
[2018-02-11] MEDS: HEPARIN SODIUM - SQ 10,000 UNITS/ML VIAL SQ SCH ×2 (04:31→17:08)
[2018-02-11] MEDS: PIPERACIL-TAZO 3.375 GM PREMIX 50 ML IV SCH ×4 (04:31→20:47)
[2018-02-11] MEDS: HYDROmorphone HCL PF 0.5 MG/0.5 ML SYRINGE IV PUSH PRN ×3 (04:37→12:41)
[2018-02-11] MEDS: RESP: ALBUTEROL 2.5 MG/IPRATROPIUM 0.5 MG NEB (SCH) NEB ×4 (05:36→19:15)
--- NOTE | 2018-02-11 08:28 | HHI.PR ---
Subjective Remarks This is a pleasant 83 y/o male with Prostate cancer status post Radiation therapy in 2007, Recurrent UTI, Urinary retention, Urethral calculus, recent suprapubic catheter insertion on 10/22/[address] De La Cruz and subsequent removal. Seen in ER and Offered a CT scan however refused as he had had one done in September 2017. He was discharged with Macrobid 100 mg twice a day for 10 days. He returns today once again today accompanied by ex- due to increasing confusion, generalized weakness, difficulty ambulating which has progressively worsened for two days before coming to ER. ID specialist consulted by Hospitalist yesterday due to fever awaiting for recommendations. he had a suprapubic catheter removed one month ago. had positive blood culture for Helena tropicalis , started on Diflucan awaiting for recommendations by ID specialist will give 400 mg by mouth due to Kidney Injury and GFR below 50. 5/20; Stable in his bedroom, discussed with nurse Miss Harrington, Seen by ID specialist recommended to continue High dose Fluconazole now his GFR has normalized, Echocardiogram, Ophthalmology consult, Repeated BC and UA and culture and sensitivity, Removed meropenem and continued Zosyn. 02/11: Stable in his bedroom, no nausea, vomit or diarrhea. intermittent confusion. added Ensure. will go to SNF at discharge. Objective Vital Signs Date Time Temp Pulse Resp B/P (MAP) Pulse Ox O2 Delivery O2 Flow Rate FiO2 02/11/18 08:00 97.7 68 17 119/58 (78) 97 02/11/18 00:00 97.2 58 20 115/57 (76) 98 02/10/18 20:45 97 Nasal Cannula 2.00 02/10/18 20:45 Nasal Cannula 2.00 02/10/18 16:00 98.0 57 18 107/53 (71) 98 02/10/18 12:00 98.0 63 18 122/56 (78) 95 02/10/18 09:18 97 Nasal Cannula 2.00 I/O 02/10/18 02/10/18 02/10/18 02/11/18 02/11/18 02/11/18 07:00 15:00 23:00 07:00 15:00 23:00 Intake Total 100 ml 50 ml 1020 ml 220 ml Output Total 1300 ml 1600 ml 800 ml Balance -1200 ml 50 ml -580 ml -580 ml Intake Oral 720 ml 220 ml IV Total 100 ml 50 ml 300 ml Output Urine Total 1300 ml 1600 ml 800 ml # Bowel Movements 1 1 2 Result Diagram: 02/08/18 0430 02/09/18 1120 Imaging Last Impressions Head CT 02/07/18 0000 Signed Impressions: Service Date/Time: January 15:37 - CONCLUSION: Nothing acute. Luis Mooney MD Chest X-Ray 02/07/18 0000 Signed Impressions: Service Date/Time: January 13:10 - CONCLUSION: No definite acute pulmonary infiltrates. Mild pulmonary venous congestion. Persistent elevation of the right hemidiaphragm. Marshall Lantigua MD Abdomen/Pelvis CT 02/07/18 0000 Signed Impressions: Service Date/Time: January 16:42 - CONCLUSION: 1. There is stable nonobstructing stones in the left kidney. 2. Mild prominence of the left renal pelvis with some questionable edema in the region of the left renal pelvis. This raises the possibility of an inflammatory process such as pyelonephritis. Recommend correlation with UA and laboratory values. 3. Diffuse diverticulosis without inflammatory changes. 4. No other significant changes are seen compared to the prior study. Marshall Lantigua MD Procedures None Other Results Laboratory Tests Test 02/07/18 12:32 02/07/18 15:54 02/07/18 16:08 02/07/18 20:28 Urine Color YELLOW Urine Turbidity HAZY Urine pH 5.5 Urine Specific [place] 1.024 Urine Protein 30 mg/dL Urine Glucose (UA) NEG mg/dL Urine Ketones 40 mg/dL Urine Occult Blood MOD Urine Nitrite NEG Urine Bilirubin NEG Urine Urobilinogen LESS THAN 2.0 MG/DL Urine Leukocyte Esterase LARGE Urine RBC 12 /hpf Urine WBC 73 /hpf Urine Squamous Epithelial Cells 2 /hpf Urine Bacteria RARE /hpf Urine Hyaline Casts 2 /lpf Urine Mucus FEW /lpf Microscopic Urinalysis Comment CULTURE INDICATED Blood Urea Nitrogen 29 MG/DL Creatinine 1.70 MG/DL Random Glucose 89 MG/DL Total Protein 7.7 GM/DL Albumin 3.5 GM/DL Calcium Level 8.4 MG/DL Alkaline Phosphatase 107 U/L Aspartate Amino Transf (AST/SGOT) 35 U/L Alanine Aminotransferase (ALT/SGPT) 19 U/L Total Bilirubin 1.0 MG/DL Sodium Level 141 MEQ/L Potassium Level 4.7 MEQ/L Chloride Level 108 MEQ/L Carbon Dioxide Level 23.2 MEQ/L B-Type Natriuretic Peptide 71 PG/ML Venous Blood pH 7.43 Venous Blood Partial Pressure CO2 31 mmHg Venous Blood Partial Pressure O2 24 mmHg Venous Blood HCO3 21 mmol/L Venous Blood Oxygen Saturation 43 % Venous Blood Oxygen Content 7.2 Vol % Venous Blood Base Excess -3.2 mmol/L Blood Gas Inspired Oxygen 21 % Blood Gas Puncture Site LT RADIAL Blood Gas Patient Temperature 98.6 Blood Gas HCO3 20 mmol/L Blood Gas Base Excess -3.4 mmol/L Blood Gas Oxygen Saturation 93 % Arterial Blood pH 7.49 Arterial Blood Partial Pressure CO2 26 mmHg Arterial Blood Partial Pressure O2 66 mmHG Arterial Blood Oxygen Content 16.3 Vol % Arterial Blood Carboxyhemoglobin 1.5 % Arterial Blood Methemoglobin 0.7 % Blood Gas Hemoglobin 12.5 G/DL Oxygen Delivery Device NASAL CANNULA Blood Gas Liter Flow 2 L/M Lactic Acid Level 1.0 mmol/L Test 02/08/18 04:30 02/09/18 11:20 White Blood Count 6.2 TH/MM3 Red Blood Count 4.32 MIL/MM3 Hemoglobin 12.5 GM/DL Hematocrit 37.0 % Mean Corpuscular Volume 85.8 FL Mean Corpuscular Hemoglobin 28.9 PG Mean Corpuscular Hemoglobin Concent 33.7 % Red Cell Distribution Width 15.4 % Platelet Count 130 TH/MM3 Mean Platelet Volume 7.7 FL Neutrophils (%) (Auto) 91.8 % Lymphocytes (%) (Auto) 1.2 % Monocytes (%) (Auto) 6.8 % Eosinophils (%) (Auto) 0.0 % Basophils (%) (Auto) 0.2 % Neutrophils # (Auto) 5.7 TH/MM3 Lymphocytes # (Auto) 0.1 TH/MM3 Monocytes # (Auto) 0.4 TH/MM3 Eosinophils # (Auto) 0.0 TH/MM3 Basophils # (Auto) 0.0 TH/MM3 CBC Comment DIFF FINAL Differential Comment Blood Urea Nitrogen 23 MG/DL Creatinine 1.16 MG/DL Random Glucose 102 MG/DL Calcium Level 7.7 MG/DL Sodium Level 141 MEQ/L Potassium Level 4.2 MEQ/L Chloride Level 110 MEQ/L Carbon Dioxide Level 22.2 MEQ/L Anion Gap 9 MEQ/L Estimat Glomerular Filtration Rate 60 ML/MIN Objective Remarks GENERAL: No acute distress. SKIN: scaly areas in his face. HEAD: Atraumatic. Normocephalic. EYES: Pupils equal and round. No scleral icterus. No injection or drainage. ENT: No nasal bleeding or discharge. Mucous membranes pink and moist. NECK: Trachea midline. No JVD. CARDIOVASCULAR: Regular rate and rhythm. RESPIRATORY: No accessory muscle use. Clear to auscultation. Breath sounds equal bilaterally. GASTROINTESTINAL: Abdomen soft, non-tender, nondistended. Hepatic and splenic margins not palpable. MUSCULOSKELETAL: Extremities without clubbing, cyanosis, or edema. NEUROLOGICAL: Awake and alert. no focal deficits. Medications and IVs Current Medications Medications (Trade) Dose Ordered Sig/Chinmay Route Start Time Stop Time Status Last Admin (NS Flush) 2 ml UNSCH PRN IV FLUSH 02/07/18 17:00 (NS Flush) 2 ml BID IV FLUSH 02/07/18 21:00 02/10/18 20:40 (Tylenol) 650 mg Q4H PRN PO 02/07/18 17:00 02/08/18 15:26 (Reglan Inj) 5 mg Q6H PRN IV PUSH 02/07/18 17:00 (Heparin Inj) 5,000 units Q12H SQ 02/07/18 17:00 02/11/18 04:31 (Narcan Inj) 0.4 mg UNSCH PRN IV PUSH 02/07/18 17:00 (Stephy-Colace) 1 tab BID PO 02/07/18 21:00 02/10/18 20:39 (Milk Of Magnesia Liq) 30 ml Q12H PRN PO 02/07/18 17:00 (Senokot) 17.2 mg Q12H PRN PO 02/07/18 17:00 (Dulcolax Supp) 10 mg DAILY PRN RECTAL 02/07/18 17:00 02/10/18 04:14 (Lactulose Liq) 30 ml DAILY PRN PO 02/07/18 17:00 (Dilaudid Pf Inj) 0.6 mg Q4H PRN IV PUSH 02/08/18 11:15 02/11/18 04:37 Fluconazole/ Sodium Chloride 200 ml @ 100 mls/hr Q24H IV 02/09/18 18:00 02/10/18 16:35 Piperacillin Sod/ Tazobactam Sod 50 ml @ 100 mls/hr Q6H IV 02/09/18 22:00 02/11/18 04:31 (Mucinex Er) 600 mg BID PO 02/10/18 11:00 02/10/18 20:39 (Duoneb Neb) 1 ampule Q6HR NEB NEB 02/10/18 11:00 02/11/18 05:36 A/P Assessment and Plan 83-year-old male with past medical history significant for prostate cancer s/p radiation treatment in 2007, recurrent UTIs, urinary retention, urethral calculus followed by . With recent suprapubic catheter insertion on 10/22/[address] De La Cruz and subsequent removal. Recently seen and evaluated in the emergency department 2 days ago with complaints of suprapubic pain. Patient was discharged with prescription for Macrobid, returns today due to increased confusion, generalized weakness, unsteady gait which has been progressively worsening. Sepsis -Suspected source is pyelonephritis, ipsilateral stone, has Helena tropicalis fungemia, started on Diflucan by mouth dose will be 800 mg first dose and continue 400 mg daily, but due to GFR below 50 will start 400 mg first dose and continue 200 mg daily until improves his renal function. as per ID continue Diflucan high dose IV. now his GFR has normalized, Echocardiogram, Ophthalmology consult, Repeated BC and UA and culture and sensitivity, Removed meropenem and continued Zosyn. Stable awaiting final recommendations by ID specialist. Suspected pyelonephritis - CT of the abdomen and pelvis suggestive of possible pyelonephritis; continue pain medicine and Zosyn MISSY-multifactorial, pyelonephritis and mild dehydration Improved. removed IV fluids. Encephalopathy likely secondary to sepsis Improved. -Head CT is negative. adjusted pain medicine to by mouth. PT recommended for Discharge to SNF for Rehabilitation. add Ensure DVT prophylaxis-SCDs and sub q. heparin. Discharge Planning Once cleared by ID specialist. Vikash Ojeda MD February 11, 2018 08:28
[2018-02-11] MEDS: DOCUSATE SODIUM 50 MG/SENNA 8.6 MG TAB PO SCH ×2 (08:37→20:47)
[2018-02-11] MEDS: guaiFENesin E.R. 600 MG TAB PO SCH ×2 (08:38→20:47)
[2018-02-11] MEDS: SODIUM CHLORIDE 0.9% FLUSH 10 ML FLUSH IV FLUSH SCH ×2 (08:39→20:47)
[2018-02-11] MEDS: FLUCONAZOLE 400 MG PREMIX BAG 200 ML IV SCH (17:09)
[2018-02-12] VITALS (7 sets, daily range): BP systolic 136–167; BP diastolic 72–77; PULSE 65–88; RESP 17–21; TEMP 97.4–98; O2SAT 93–97
[2018-02-12] MEDS: RESP: ALBUTEROL 2.5 MG/IPRATROPIUM 0.5 MG NEB (SCH) NEB ×4 (03:01→21:05)
[2018-02-12] MEDS: PIPERACIL-TAZO 3.375 GM PREMIX 50 ML IV SCH ×3 (04:37→16:28)
[2018-02-12] MEDS: HEPARIN SODIUM - SQ 10,000 UNITS/ML VIAL SQ SCH ×2 (04:37→16:29)
[2018-02-12] MEDS: guaiFENesin E.R. 600 MG TAB PO SCH ×2 (09:05→19:38)
[2018-02-12] MEDS: DOCUSATE SODIUM 50 MG/SENNA 8.6 MG TAB PO SCH ×2 (09:05→19:38)
[2018-02-12] MEDS: SODIUM CHLORIDE 0.9% FLUSH 10 ML FLUSH IV FLUSH SCH ×2 (09:06→19:38)
--- NOTE | 2018-02-12 09:14 | HHI.PR ---
Subjective Remarks This is a pleasant 83 y/o male with Prostate cancer status post Radiation therapy in 2007, Recurrent UTI, Urinary retention, Urethral calculus, recent suprapubic catheter insertion on 10/22/[address] De La Cruz and subsequent removal. Seen in ER and Offered a CT scan however refused as he had had one done in September 2017. He was discharged with Macrobid 100 mg twice a day for 10 days. He returns today once again today accompanied by ex- due to increasing confusion, generalized weakness, difficulty ambulating which has progressively worsened for two days before coming to ER. ID specialist consulted by Hospitalist yesterday due to fever awaiting for recommendations. he had a suprapubic catheter removed one month ago. had positive blood culture for Helena tropicalis , started on Diflucan awaiting for recommendations by ID specialist will give 400 mg by mouth due to Kidney Injury and GFR below 50. 02/10; Stable in his bedroom, discussed with nurse Miss Harrington, Seen by ID specialist recommended to continue High dose Fluconazole now his GFR has normalized, Echocardiogram, Ophthalmology consult, Repeated BC and UA and culture and sensitivity, Removed meropenem and continued Zosyn. 02/11: intermittent confusion. added Ensure. will go to SNF at discharge. 02/12: Stable in his bedroom discussed early in am with Doctor Good ID specialist will continue management with Diflucan for now, also not performed the Echocardiogram. no nausea, vomit or diarrhea. Objective Vital Signs Date Time Temp Pulse Resp B/P (MAP) Pulse Ox O2 Delivery O2 Flow Rate FiO2 02/12/18 08:00 97.4 65 18 167/77 (107) 97 02/12/18 00:14 97.6 65 17 155/76 (102) 96 02/11/18 20:50 Nasal Cannula 2.00 02/11/18 20:32 98.0 64 18 158/74 (102) 96 02/11/18 19:16 97 Nasal Cannula 2.00 02/11/18 16:00 97.6 80 17 155/73 (100) 97 02/11/18 12:00 98.0 80 17 123/59 (80) 97 02/11/18 09:55 97 Nasal Cannula 2.00 I/O 02/11/18 02/11/18 02/11/18 02/12/18 02/12/18 02/12/18 07:00 15:00 23:00 07:00 15:00 23:00 Intake Total 220 ml 770 ml 430 ml Output Total 800 ml Balance -580 ml 770 ml 430 ml Intake Oral 220 ml 720 ml 380 ml IV Total 50 ml 50 ml Output Urine Total 800 ml # Voids 5 6 # Bowel Movements 2 1 2 Result Diagram: 02/08/18 0430 02/09/18 1120 Imaging Last Impressions Head CT 02/07/18 0000 Signed Impressions: Service Date/Time: January 15:37 - CONCLUSION: Nothing acute. Luis Mooney MD Chest X-Ray 02/07/18 0000 Signed Impressions: Service Date/Time: January 13:10 - CONCLUSION: No definite acute pulmonary infiltrates. Mild pulmonary venous congestion. Persistent elevation of the right hemidiaphragm. Marshall Lantigua MD Abdomen/Pelvis CT 02/07/18 0000 Signed Impressions: Service Date/Time: January 16:42 - CONCLUSION: 1. There is stable nonobstructing stones in the left kidney. 2. Mild prominence of the left renal pelvis with some questionable edema in the region of the left renal pelvis. This raises the possibility of an inflammatory process such as pyelonephritis. Recommend correlation with UA and laboratory values. 3. Diffuse diverticulosis without inflammatory changes. 4. No other significant changes are seen compared to the prior study. Marshall Lantigua MD Procedures None Other Results Laboratory Tests Test 02/07/18 12:32 02/07/18 15:54 02/07/18 16:08 02/07/18 20:28 Urine Color YELLOW Urine Turbidity HAZY Urine pH 5.5 Urine Specific [place] 1.024 Urine Protein 30 mg/dL Urine Glucose (UA) NEG mg/dL Urine Ketones 40 mg/dL Urine Occult Blood MOD Urine Nitrite NEG Urine Bilirubin NEG Urine Urobilinogen LESS THAN 2.0 MG/DL Urine Leukocyte Esterase LARGE Urine RBC 12 /hpf Urine WBC 73 /hpf Urine Squamous Epithelial Cells 2 /hpf Urine Bacteria RARE /hpf Urine Hyaline Casts 2 /lpf Urine Mucus FEW /lpf Microscopic Urinalysis Comment CULTURE INDICATED Blood Urea Nitrogen 29 MG/DL Creatinine 1.70 MG/DL Random Glucose 89 MG/DL Total Protein 7.7 GM/DL Albumin 3.5 GM/DL Calcium Level 8.4 MG/DL Alkaline Phosphatase 107 U/L Aspartate Amino Transf (AST/SGOT) 35 U/L Alanine Aminotransferase (ALT/SGPT) 19 U/L Total Bilirubin 1.0 MG/DL Sodium Level 141 MEQ/L Potassium Level 4.7 MEQ/L Chloride Level 108 MEQ/L Carbon Dioxide Level 23.2 MEQ/L B-Type Natriuretic Peptide 71 PG/ML Venous Blood pH 7.43 Venous Blood Partial Pressure CO2 31 mmHg Venous Blood Partial Pressure O2 24 mmHg Venous Blood HCO3 21 mmol/L Venous Blood Oxygen Saturation 43 % Venous Blood Oxygen Content 7.2 Vol % Venous Blood Base Excess -3.2 mmol/L Blood Gas Inspired Oxygen 21 % Blood Gas Puncture Site LT RADIAL Blood Gas Patient Temperature 98.6 Blood Gas HCO3 20 mmol/L Blood Gas Base Excess -3.4 mmol/L Blood Gas Oxygen Saturation 93 % Arterial Blood pH 7.49 Arterial Blood Partial Pressure CO2 26 mmHg Arterial Blood Partial Pressure O2 66 mmHG Arterial Blood Oxygen Content 16.3 Vol % Arterial Blood Carboxyhemoglobin 1.5 % Arterial Blood Methemoglobin 0.7 % Blood Gas Hemoglobin 12.5 G/DL Oxygen Delivery Device NASAL CANNULA Blood Gas Liter Flow 2 L/M Lactic Acid Level 1.0 mmol/L Test 02/08/18 04:30 02/09/18 11:20 White Blood Count 6.2 TH/MM3 Red Blood Count 4.32 MIL/MM3 Hemoglobin 12.5 GM/DL Hematocrit 37.0 % Mean Corpuscular Volume 85.8 FL Mean Corpuscular Hemoglobin 28.9 PG Mean Corpuscular Hemoglobin Concent 33.7 % Red Cell Distribution Width 15.4 % Platelet Count 130 TH/MM3 Mean Platelet Volume 7.7 FL Neutrophils (%) (Auto) 91.8 % Lymphocytes (%) (Auto) 1.2 % Monocytes (%) (Auto) 6.8 % Eosinophils (%) (Auto) 0.0 % Basophils (%) (Auto) 0.2 % Neutrophils # (Auto) 5.7 TH/MM3 Lymphocytes # (Auto) 0.1 TH/MM3 Monocytes # (Auto) 0.4 TH/MM3 Eosinophils # (Auto) 0.0 TH/MM3 Basophils # (Auto) 0.0 TH/MM3 CBC Comment DIFF FINAL Differential Comment Blood Urea Nitrogen 23 MG/DL Creatinine 1.16 MG/DL Random Glucose 102 MG/DL Calcium Level 7.7 MG/DL Sodium Level 141 MEQ/L Potassium Level 4.2 MEQ/L Chloride Level 110 MEQ/L Carbon Dioxide Level 22.2 MEQ/L Anion Gap 9 MEQ/L Estimat Glomerular Filtration Rate 60 ML/MIN Objective Remarks GENERAL: No acute distress. SKIN: scaly areas in his face. HEAD: Atraumatic. Normocephalic. EYES: Pupils equal and round. No scleral icterus. No injection or drainage. ENT: No nasal bleeding or discharge. Mucous membranes pink and moist. NECK: Trachea midline. No JVD. CARDIOVASCULAR: Regular rate and rhythm. RESPIRATORY: No accessory muscle use. Clear to auscultation. Breath sounds equal bilaterally. GASTROINTESTINAL: Abdomen soft, non-tender, nondistended. Hepatic and splenic margins not palpable. MUSCULOSKELETAL: Extremities without clubbing, cyanosis, or edema. NEUROLOGICAL: Awake and alert. no focal deficits. Medications and IVs Current Medications Medications (Trade) Dose Ordered Sig/Chinmay Route Start Time Stop Time Status Last Admin (NS Flush) 2 ml UNSCH PRN IV FLUSH 02/07/18 17:00 (NS Flush) 2 ml BID IV FLUSH 02/07/18 21:00 02/11/18 20:47 (Tylenol) 650 mg Q4H PRN PO 02/07/18 17:00 02/08/18 15:26 (Reglan Inj) 5 mg Q6H PRN IV PUSH 02/07/18 17:00 (Heparin Inj) 5,000 units Q12H SQ 02/07/18 17:00 02/12/18 04:37 (Narcan Inj) 0.4 mg UNSCH PRN IV PUSH 02/07/18 17:00 (Stephy-Colace) 1 tab BID PO 02/07/18 21:00 02/11/18 20:47 (Milk Of Magnesia Liq) 30 ml Q12H PRN PO 02/07/18 17:00 (Senokot) 17.2 mg Q12H PRN PO 02/07/18 17:00 (Dulcolax Supp) 10 mg DAILY PRN RECTAL 02/07/18 17:00 02/10/18 04:14 (Lactulose Liq) 30 ml DAILY PRN PO 02/07/18 17:00 Fluconazole/ Sodium Chloride 200 ml @ 100 mls/hr Q24H IV 02/09/18 18:00 02/11/18 17:09 Piperacillin Sod/ Tazobactam Sod 50 ml @ 100 mls/hr Q6H IV 02/09/18 22:00 02/12/18 04:37 (Mucinex Er) 600 mg BID PO 02/10/18 11:00 02/11/18 20:47 (Duoneb Neb) 1 ampule Q6HR NEB NEB 02/10/18 11:00 02/12/18 03:01 (Dilaudid) 2 mg Q4H PRN PO 02/11/18 17:15 A/P Assessment and Plan 83-year-old male with past medical history significant for prostate cancer s/p radiation treatment in 2007, recurrent UTIs, urinary retention, urethral calculus followed by . With recent suprapubic catheter insertion on 10/22/[address] De La Cruz and subsequent removal. Recently seen and evaluated in the emergency department 2 days ago with complaints of suprapubic pain. Patient was discharged with prescription for Macrobid, returns today due to increased confusion, generalized weakness, unsteady gait which has been progressively worsening. Sepsis -Suspected source is pyelonephritis, ipsilateral stone, has Helena tropicalis fungemia, started on Diflucan by mouth dose will be 800 mg first dose and continue 400 mg daily, but due to GFR below 50 will start 400 mg first dose and continue 200 mg daily until improves his renal function. as per ID continue Diflucan high dose IV. now his GFR has normalized, Echocardiogram, Ophthalmology consult, Repeated BC and UA and culture and sensitivity, Removed meropenem and continued Zosyn. Stable awaiting final recommendations by ID specialist. Suspected pyelonephritis - CT of the abdomen and pelvis suggestive of possible pyelonephritis; continue pain medicine and Zosyn MISSY-multifactorial, pyelonephritis and mild dehydration Improved. removed IV fluids. Encephalopathy likely secondary to sepsis Improved. -Head CT is negative. adjusted pain medicine to by mouth. PT recommended for Discharge to SNF for Rehabilitation. added Ensure Seborrheic dermatitis continue management with Hydrocortisone. DVT prophylaxis-SCDs and sub q. heparin. Discharge Planning Once cleared by ID specialist. Vikash Ojeda MD February 12, 2018 09:14
[2018-02-12] MEDS: HYDROmorphone HCL 2 MG TAB PO PRN ×2 (09:35→19:39)
[2018-02-12] MEDS: FLUCONAZOLE 400 MG PREMIX BAG 200 ML IV SCH (16:28)
[2018-02-12] MEDS: HYDROCORTISONE 1% OINT 30 GM TUBE TOPICAL SCH (19:38)
--- NOTE | 2018-02-12 20:13 | HHI.IDPN ---
Subjective Subjective Remarks repeat BC neative so far awaiting 2 D echo no fever Antibiotics zosyn fluconazol Allergies: Coded Allergies: morphine (Verified Adverse Reaction, Severe, 02/05/18) "ALTERED MENTAL AND HALLUCINATIONS" Objective . Vital Signs Date Time Temp Pulse Resp B/P (MAP) Pulse Ox O2 Delivery O2 Flow Rate FiO2 02/12/18 16:00 98.0 78 18 147/73 (97) 94 02/12/18 15:20 93 21 02/12/18 12:00 97.6 88 18 136/72 (93) 97 02/12/18 09:58 95 Nasal Cannula 2.00 02/12/18 09:16 Nasal Cannula 2.00 02/12/18 08:00 97.4 65 18 167/77 (107) 97 02/12/18 00:14 97.6 65 17 155/76 (102) 96 02/11/18 20:50 Nasal Cannula 2.00 02/11/18 20:32 98.0 64 18 158/74 (102) 96 02/12/18 02/12/18 02/13/18 15:00 23:00 07:00 Intake Total 920 ml Balance 920 ml Intake Oral 620 ml IV Total 300 ml # Voids 8 # Bowel Movements 5 . Microbiology Date/Time Source Procedure Growth Status 02/09/18 23:14 Blood Peripheral Aerobic Blood Culture - Preliminary NO GROWTH IN 3 DAYS Resulted 02/09/18 23:14 Blood Peripheral Anaerobic Blood Culture - Preliminary NO GROWTH IN 3 DAYS Resulted 02/09/18 23:09 Blood Peripheral Aerobic Blood Culture - Preliminary NO GROWTH IN 3 DAYS Resulted 02/09/18 23:09 Blood Peripheral Anaerobic Blood Culture - Preliminary NO GROWTH IN 3 DAYS Resulted Imaging Last Impressions Head CT 02/07/18 0000 Signed Impressions: Service Date/Time: January 15:37 - CONCLUSION: Nothing acute. Luis Mooney MD Chest X-Ray 02/07/18 0000 Signed Impressions: Service Date/Time: January 13:10 - CONCLUSION: No definite acute pulmonary infiltrates. Mild pulmonary venous congestion. Persistent elevation of the right hemidiaphragm. Marshall Lantigua MD Abdomen/Pelvis CT 02/07/18 0000 Signed Impressions: Service Date/Time: Thursday, February 07, 2018 16:42 - CONCLUSION: 1. There is stable nonobstructing stones in the left kidney. 2. Mild prominence of the left renal pelvis with some questionable edema in the region of the left renal pelvis. This raises the possibility of an inflammatory process such as pyelonephritis. Recommend correlation with UA and laboratory values. 3. Diffuse diverticulosis without inflammatory changes. 4. No other significant changes are seen compared to the prior study. Marshall Lantigua MD Physical Exam CONSTITUTIONAL/GENERAL: This is an adequately nourished patient, in no apparent distress. TUBES/LINES/DRAINS: SKIN: No jaundice, rashes, or lesions. Skin temperature appropriate. Not diaphoretic. CARDIOVASCULAR: Regular rate and rhythm without murmurs, gallops, or rubs. No JVD. Peripheral pulses symmetric. RESPIRATORY/CHEST: Symmetric, unlabored respirations. Clear to auscultation. Breath sounds equal bilaterally. No wheezes, rales, or rhonchi. GASTROINTESTINAL: Abdomen soft, non-tender, nondistended. No hepato-splenomegaly , or palpable masses. No guarding. Bowel sounds present. GENITOURINARY: Without palpable bladder distension. Condom catheter in placce with cloudy urine SP opening cew recent SP cath MUSCULOSKELETAL: Extremities without clubbing, cyanosis, or edema. No joint tenderness or effusion noted. No calf tenderness. No mottling or clubbing. NEUROLOGICAL: Awake and alert. Motor and sensory grossly within normal limits. Follows commands. Confiused, speech is mostly incoherent Moves all extremities. PSYCHIATRIC: No obvious anxiety/depression. no apparent hallucinations or other psychotic thought process. Assessment & Plan Remarks Assessment and Plan Assessment and Plan UTI, L sided pyelo complicated in a pt with ipsilateral stone Helena tropicalis fungemia ? sorce - can be UTI, but would expect + urine clx for C tropicalis repeat BC High dose fluconazol 2 D echo ophthalm consult repeat UA C+S dc zosyn Further w/u P results of 2 D echo Felipa Good MD February 12, 2018 20:13
[2018-02-12] MEDS ORDERED: ALPRAZolam 0.25 MG TAB PO ONE (22:30)
[2018-02-13] VITALS (7 sets, daily range): BP systolic 131–141; BP diastolic 61–74; PULSE 73–87; RESP 16–18; TEMP 97.6–98.4; O2SAT 91–98
[2018-02-13] MEDS: RESP: ALBUTEROL 2.5 MG/IPRATROPIUM 0.5 MG NEB (SCH) NEB ×4 (03:31→19:05)
[2018-02-13] MEDS: HEPARIN SODIUM - SQ 10,000 UNITS/ML VIAL SQ SCH ×3 (04:59→17:54)
[2018-02-13] MEDS: guaiFENesin E.R. 600 MG TAB PO SCH ×3 (09:00→20:35)
[2018-02-13] MEDS: DOCUSATE SODIUM 50 MG/SENNA 8.6 MG TAB PO SCH ×3 (09:00→20:50)
--- NOTE | 2018-02-13 09:23 | HHI.PR ---
Subjective Remarks This is a pleasant 83 y/o male with Prostate cancer status post Radiation therapy in 2007, Recurrent UTI, Urinary retention, Urethral calculus, recent suprapubic catheter insertion on 10/22/[address] De La Cruz and subsequent removal. Seen in ER and Offered a CT scan however refused as he had had one done in September 2017. He was discharged with Macrobid 100 mg twice a day for 10 days. He returns today once again today accompanied by ex- due to increasing confusion, generalized weakness, difficulty ambulating which has progressively worsened for two days before coming to ER. ID specialist consulted by Hospitalist yesterday due to fever awaiting for recommendations. he had a suprapubic catheter removed one month ago. had positive blood culture for Helena tropicalis , started on Diflucan awaiting for recommendations by ID specialist will give 400 mg by mouth due to Kidney Injury and GFR below 50. 02/10; Stable in his bedroom, discussed with nurse Miss Harrington, Seen by ID specialist recommended to continue High dose Fluconazole now his GFR has normalized, Echocardiogram, Ophthalmology consult, Repeated BC and UA and culture and sensitivity, Removed meropenem and continued Zosyn. 02/11: intermittent confusion. added Ensure. will go to SNF at discharge. 02/12: Stable in his bedroom discussed early in am with Doctor Good ID specialist will continue management with Diflucan for now, also not performed the Echocardiogram. 02/13: seen by ID specialist with diagnosis of UTI, left sided Pyelonephritis complicated in a patient with ipsilateral stone, [place] tropicalis fungemia probable UTI source New Blood culture negative, Fluconazole, Echocardiogram, Ophthalmology consult, repeat UA and culture and sensitivity, removed Zosyn. Objective Vital Signs Date Time Temp Pulse Resp B/P (MAP) Pulse Ox O2 Delivery O2 Flow Rate FiO2 02/13/18 08:19 98.0 84 18 141/69 (93) 95 02/13/18 03:33 91 21 02/13/18 00:17 97.6 87 18 139/74 (95) 98 02/12/18 20:39 20 02/12/18 20:26 97.9 73 21 163/75 (104) 97 02/12/18 19:40 Nasal Cannula 2.00 02/12/18 16:00 98.0 78 18 147/73 (97) 94 02/12/18 15:20 93 21 02/12/18 12:00 97.6 88 18 136/72 (93) 97 02/12/18 09:58 95 Nasal Cannula 2.00 I/O 02/12/18 02/12/18 02/12/18 02/13/18 02/13/18 02/13/18 07:00 15:00 23:00 07:00 15:00 23:00 Intake Total 430 ml 920 ml 480 ml Balance 430 ml 920 ml 480 ml Intake Oral 380 ml 620 ml 480 ml IV Total 50 ml 300 ml # Voids 6 8 5 # Bowel Movements 2 5 2 Result Diagram: 02/09/18 1120 Imaging Last Impressions Head CT 02/07/18 0000 Signed Impressions: Service Date/Time: January 15:37 - CONCLUSION: Nothing acute. Luis Mooney MD Chest X-Ray 02/07/18 0000 Signed Impressions: Service Date/Time: January 13:10 - CONCLUSION: No definite acute pulmonary infiltrates. Mild pulmonary venous congestion. Persistent elevation of the right hemidiaphragm. Marshall Lantigua MD Abdomen/Pelvis CT 02/07/18 0000 Signed Impressions: Service Date/Time: January 16:42 - CONCLUSION: 1. There is stable nonobstructing stones in the left kidney. 2. Mild prominence of the left renal pelvis with some questionable edema in the region of the left renal pelvis. This raises the possibility of an inflammatory process such as pyelonephritis. Recommend correlation with UA and laboratory values. 3. Diffuse diverticulosis without inflammatory changes. 4. No other significant changes are seen compared to the prior study. Marshall Lantigua MD Procedures None Other Results Laboratory Tests Test 02/07/18 12:32 02/07/18 15:54 02/07/18 16:08 02/07/18 20:28 Urine Color YELLOW Urine Turbidity HAZY Urine pH 5.5 Urine Specific [place] 1.024 Urine Protein 30 mg/dL Urine Glucose (UA) NEG mg/dL Urine Ketones 40 mg/dL Urine Occult Blood MOD Urine Nitrite NEG Urine Bilirubin NEG Urine Urobilinogen LESS THAN 2.0 MG/DL Urine Leukocyte Esterase LARGE Urine RBC 12 /hpf Urine WBC 73 /hpf Urine Squamous Epithelial Cells 2 /hpf Urine Bacteria RARE /hpf Urine Hyaline Casts 2 /lpf Urine Mucus FEW /lpf Microscopic Urinalysis Comment CULTURE INDICATED Blood Urea Nitrogen 29 MG/DL Creatinine 1.70 MG/DL Random Glucose 89 MG/DL Total Protein 7.7 GM/DL Albumin 3.5 GM/DL Calcium Level 8.4 MG/DL Alkaline Phosphatase 107 U/L Aspartate Amino Transf (AST/SGOT) 35 U/L Alanine Aminotransferase (ALT/SGPT) 19 U/L Total Bilirubin 1.0 MG/DL Sodium Level 141 MEQ/L Potassium Level 4.7 MEQ/L Chloride Level 108 MEQ/L Carbon Dioxide Level 23.2 MEQ/L B-Type Natriuretic Peptide 71 PG/ML Venous Blood pH 7.43 Venous Blood Partial Pressure CO2 31 mmHg Venous Blood Partial Pressure O2 24 mmHg Venous Blood HCO3 21 mmol/L Venous Blood Oxygen Saturation 43 % Venous Blood Oxygen Content 7.2 Vol % Venous Blood Base Excess -3.2 mmol/L Blood Gas Inspired Oxygen 21 % Blood Gas Puncture Site LT RADIAL Blood Gas Patient Temperature 98.6 Blood Gas HCO3 20 mmol/L Blood Gas Base Excess -3.4 mmol/L Blood Gas Oxygen Saturation 93 % Arterial Blood pH 7.49 Arterial Blood Partial Pressure CO2 26 mmHg Arterial Blood Partial Pressure O2 66 mmHG Arterial Blood Oxygen Content 16.3 Vol % Arterial Blood Carboxyhemoglobin 1.5 % Arterial Blood Methemoglobin 0.7 % Blood Gas Hemoglobin 12.5 G/DL Oxygen Delivery Device NASAL CANNULA Blood Gas Liter Flow 2 L/M Lactic Acid Level 1.0 mmol/L Test 02/08/18 04:30 02/09/18 11:20 White Blood Count 6.2 TH/MM3 Red Blood Count 4.32 MIL/MM3 Hemoglobin 12.5 GM/DL Hematocrit 37.0 % Mean Corpuscular Volume 85.8 FL Mean Corpuscular Hemoglobin 28.9 PG Mean Corpuscular Hemoglobin Concent 33.7 % Red Cell Distribution Width 15.4 % Platelet Count 130 TH/MM3 Mean Platelet Volume 7.7 FL Neutrophils (%) (Auto) 91.8 % Lymphocytes (%) (Auto) 1.2 % Monocytes (%) (Auto) 6.8 % Eosinophils (%) (Auto) 0.0 % Basophils (%) (Auto) 0.2 % Neutrophils # (Auto) 5.7 TH/MM3 Lymphocytes # (Auto) 0.1 TH/MM3 Monocytes # (Auto) 0.4 TH/MM3 Eosinophils # (Auto) 0.0 TH/MM3 Basophils # (Auto) 0.0 TH/MM3 CBC Comment DIFF FINAL Differential Comment Blood Urea Nitrogen 23 MG/DL Creatinine 1.16 MG/DL Random Glucose 102 MG/DL Calcium Level 7.7 MG/DL Sodium Level 141 MEQ/L Potassium Level 4.2 MEQ/L Chloride Level 110 MEQ/L Carbon Dioxide Level 22.2 MEQ/L Anion Gap 9 MEQ/L Estimat Glomerular Filtration Rate 60 ML/MIN Objective Remarks GENERAL: No acute distress. SKIN: scaly areas in his face. HEAD: Atraumatic. Normocephalic. EYES: Pupils equal and round. No scleral icterus. No injection or drainage. ENT: No nasal bleeding or discharge. Mucous membranes pink and moist. NECK: Trachea midline. No JVD. CARDIOVASCULAR: Regular rate and rhythm. RESPIRATORY: No accessory muscle use. Clear to auscultation. Breath sounds equal bilaterally. GASTROINTESTINAL: Abdomen soft, non-tender, nondistended. Hepatic and splenic margins not palpable. MUSCULOSKELETAL: Extremities without clubbing, cyanosis, or edema. NEUROLOGICAL: Awake and alert. no focal deficits. Medications and IVs Current Medications Medications (Trade) Dose Ordered Sig/Chinmay Route Start Time Stop Time Status Last Admin (NS Flush) 2 ml UNSCH PRN IV FLUSH 02/07/18 17:00 (NS Flush) 2 ml BID IV FLUSH 02/07/18 21:00 02/12/18 19:38 (Tylenol) 650 mg Q4H PRN PO 02/07/18 17:00 02/08/18 15:26 (Reglan Inj) 5 mg Q6H PRN IV PUSH 02/07/18 17:00 (Heparin Inj) 5,000 units Q12H SQ 02/07/18 17:00 02/13/18 04:59 (Narcan Inj) 0.4 mg UNSCH PRN IV PUSH 02/07/18 17:00 (Stephy-Colace) 1 tab BID PO 02/07/18 21:00 02/12/18 19:38 (Milk Of Magnesia Liq) 30 ml Q12H PRN PO 02/07/18 17:00 (Senokot) 17.2 mg Q12H PRN PO 02/07/18 17:00 (Dulcolax Supp) 10 mg DAILY PRN RECTAL 02/07/18:00 02/10/18 04:14 (Lactulose Liq) 30 ml DAILY PRN PO 02/07/18 17:00 Fluconazole/ Sodium Chloride 200 ml @ 100 mls/hr Q24H IV 02/09/18 18:00 02/12/18 16:28 (Mucinex Er) 600 mg BID PO 02/10/18 11:00 02/12/18 19:38 (Duoneb Neb) 1 ampule Q6HR NEB NEB 02/10/18 11:00 02/13/18 03:31 (Dilaudid) 2 mg Q4H PRN PO 02/11/18 17:15 02/12/18 19:39 (Nutracort 1% Oint) 1 applic BID TOPICAL 02/12/18 21:00 02/17/18 12:00 A/P Assessment and Plan 83-year-old male with past medical history significant for prostate cancer s/p radiation treatment in 2007, recurrent UTIs, urinary retention, urethral calculus followed by . With recent suprapubic catheter insertion on 10/22/[address] De La Cruz and subsequent removal. Recently seen and evaluated in the emergency department 2 days ago with complaints of suprapubic pain. Patient was discharged with prescription for Macrobid, returns today due to increased confusion, generalized weakness, unsteady gait which has been progressively worsening. Sepsis -Suspected source is pyelonephritis, ipsilateral stone, has [place] tropicalis fungemia, started on Diflucan by mouth dose will be 800 mg first dose and continue 400 mg daily, but due to GFR below 50 will start 400 mg first dose and continue 200 mg daily until improves his renal function. as per ID continue Diflucan high dose IV. now his GFR has normalized, Echocardiogram, Ophthalmology consult, Repeated BC and UA and culture and sensitivity, Removed meropenem and continued Zosyn. 02/13: UTI left sided Pyelonephritis complicated with ipsilateral stone, repeated Blood cultures negative in four days. removed Zosyn. Suspected pyelonephritis - CT of the abdomen and pelvis suggestive of possible pyelonephritis MISSY-multifactorial, pyelonephritis and mild dehydration Improved. removed IV fluids. repeat BMP and CBC for tomorrow. Encephalopathy likely secondary to sepsis Improved. -Head CT is negative. adjusted pain medicine to by mouth. PT recommended for Discharge to SNF for Rehabilitation. added Ensure Seborrheic dermatitis continue management with Hydrocortisone. DVT prophylaxis-SCDs and sub q. heparin. Discharge Planning Once cleared by ID specialist. Vikash Ojeda MD February 13, 2018 09:23
[2018-02-13] MEDS: HYDROCORTISONE 1% OINT 30 GM TUBE TOPICAL SCH ×2 (09:47→20:39)
[2018-02-13] MEDS: SODIUM CHLORIDE 0.9% FLUSH 10 ML FLUSH IV FLUSH SCH ×2 (09:47→20:36)
[2018-02-13] MEDS: FLUCONAZOLE 400 MG PREMIX BAG 200 ML IV SCH (17:41)
[2018-02-14] VITALS: BP 157/73; PULSE 84; RESP 16; TEMP 97.1; O2SAT 93
[2018-02-14] MEDS: RESP: ALBUTEROL 2.5 MG/IPRATROPIUM 0.5 MG NEB (SCH) NEB ×2 (03:44→08:53)
[2018-02-14] MEDS: HEPARIN SODIUM - SQ 10,000 UNITS/ML VIAL SQ SCH ×2 (05:11→17:29)
[2018-02-14 06:58] LABS: AUTOMATED NEUTROPHIL # 4.9 TH/MM3 (1.8-7.7); BASOPHIL # 0.1 TH/MM3 (0-0.2); BASOPHIL % 0.9 % (0.0-2.0); EOSINOPHIL # 0.4 TH/MM3 (0-0.4); EOSINOPHIL % 5.5 % (0.0-4.0); HEMATOCRIT 40.9 % (39.0-51.0); HEMOGLOBIN 13.4 GM/DL (13.0-17.0); LYMPH % 11.1 % (9.0-44.0); LYMPHOCYTE # 0.7 TH/MM3 (1.0-4.8); MEAN CORPUSCULAR HEMOGLOBIN 28.1 PG (27.0-34.0); MEAN CORPUSCULAR HGB CONC 32.7 % (32.0-36.0); MONO % 8.6 % (0.0-8.0); MONOCYTE # 0.6 TH/MM3 (0-0.9); NEUT % 73.9 % (16.0-70.0); PLATELET COUNT 187 TH/MM3 (150-450); RED BLOOD COUNT 4.75 MIL/MM3 (4.50-5.90); RED CELL DISTRIBUTION WIDTH 15.8 % (11.6-17.2); WHITE BLOOD COUNT 6.6 TH/MM3 (4.0-11.0)
[2018-02-14 07:25] LABS: BICARBONATE 30.4 MEQ/L (21.0-32.0); CALCIUM 8.8 MG/DL (8.5-10.1); CREATININE 1.14 MG/DL (0.60-1.30)
[2018-02-14 08:00] VITALS: BP 134/71; PULSE 74; RESP 18; TEMP 97.5; O2SAT 93
[2018-02-14] MEDS: SODIUM CHLORIDE 0.9% FLUSH 10 ML FLUSH IV FLUSH SCH (08:51)
[2018-02-14] MEDS: guaiFENesin E.R. 600 MG TAB PO SCH (08:51)
[2018-02-14] MEDS: HYDROCORTISONE 1% OINT 30 GM TUBE TOPICAL SCH (08:51)
[2018-02-14 08:55] VITALS: O2SAT 97
[2018-02-14] MEDS: HYDROmorphone HCL 2 MG TAB PO PRN (10:08)
--- NOTE | 2018-02-14 10:54 | HHI.PR ---
Subjective Remarks Nursing denies any deterioration since last night. Patient herself is complaining of back pain which she thinks is due to "cauda equina." He thinks we are at a rehab facility. But he is oriented to the date and year. Objective Vital Signs Date Time Temp Pulse Resp B/P (MAP) Pulse Ox O2 Delivery O2 Flow Rate FiO2 02/14/18 08:55 97 Nasal Cannula 2.00 02/14/18 08:45 Nasal Cannula 2.00 02/14/18 08:00 97.5 74 18 134/71 (92) 93 02/14/18 00:00 97.1 84 16 157/73 (101) 93 02/13/18 20:32 Nasal Cannula 2.00 02/13/18 20:00 98.4 73 16 131/61 (84) 92 02/13/18 19:06 97 Nasal Cannula 2.00 02/13/18 12:54 97.8 84 16 141/69 (93) 98 I/O 02/13/18 02/13/18 02/13/18 02/14/18 02/14/18 02/14/18 07:00 15:00 23:00 07:00 15:00 23:00 Intake Total 480 ml 660 ml Output Total 600 ml Balance 480 ml 660 ml -600 ml Intake Oral 480 ml 500 ml IV Total 160 ml Output Urine Total 600 ml # Voids 5 4 # Bowel Movements 2 4 1 Result Diagram: 02/14/18 0630 02/14/18 0630 Procedures None Objective Remarks Unlabored breathing, clear lungs bilaterally Has mild left flank tenderness to palpation A/P Assessment and Plan 83-year-old male with past medical history significant for prostate cancer s/p radiation treatment in 2007, recurrent UTIs, urinary retention, urethral calculus followed by . With recent suprapubic catheter insertion on 10/22/[address] De La Cruz and subsequent removal. Recently seen and evaluated in the emergency department 2 days ago with complaints of suprapubic pain. Patient was discharged with prescription for Macrobid, returns today due to increased confusion, generalized weakness, unsteady gait which has been progressively worsening. Sepsis element resolved Suspected source is pyelonephritis ipsilateral stone, has [place] tropicalis fungemia Diflucan high dose IV. Instructed nurse to contact Storie to follow-up on echocardiogram report since it was done apparently 3-4 days ago Awaiting ophthalmology consult,, instructed nursing to contact ophthalmology again Repeat blood culture and urine analysis was not collected ordered but has been of interest to infectious disease repeated BC and UA and culture and sensitivity, Removed MISSY- improving Encephalopathy - resolved Suspect dementia - unsafe discharge home by himself at this time PT recommended for Discharge to SNF for Rehabilitation. Ensure Seborrheic dermatitis continue management with Hydrocortisone. Charlie Duval MD February 14, 2018 10:54
--- NOTE | 2018-02-14 11:48 | PD.CONS ---
History of Present Illness Service Ophthalmology Consult Requested By Reason for Consult rule out fungal endophthalmitis Primary Care Physician Dacia Brown MD Diagnoses: History of Present Illness 83 yo M with past medical history significant for prostate cancer s/p radiation treatment in 2007, recurrent UTIs, urinary retention, urethral calculus followed by . Presented to ED due to increasing confusion, generalized weakness, difficulty ambulating which has progressively worsened over the past 2 days. Blood culture positive for [place] - ophthalmology called to rule out fungal endophthalmitis. Pt has no current ocular complaints. History of diplopia which he occludes one eye for when using his reading glasses , and cataract surgery OU. Past Family Social History Allergies: Coded Allergies: morphine (Verified Adverse Reaction, Severe, 02/05/18) "ALTERED MENTAL AND HALLUCINATIONS" Physical Exam Vital Signs Vital Signs Date Time Temp Pulse Resp B/P (MAP) Pulse Ox O2 Delivery O2 Flow Rate FiO2 02/14/18 08:55 97 Nasal Cannula 2.00 02/14/18 08:45 Nasal Cannula 2.00 02/14/18 08:00 97.5 74 18 134/71 (92) 93 02/14/18 00:00 97.1 84 16 157/73 (101) 93 02/13/18 20:32 Nasal Cannula 2.00 02/13/18 20:00 98.4 73 16 131/61 (84) 92 02/13/18 19:06 97 Nasal Cannula 2.00 02/13/18 12:54 97.8 84 16 141/69 (93) 98 Physical Exam Va cc at near OD 20/30, OS 20/30 EOM full OU, binocular diplopia CVF full OU Pupils 2-1 no APD OU IOP normal to palpation OU Anterior exam OD - normal eyelid, C/S W&Q, K clear, AC deep, pupil round, PCIOL OS - normal eyelid, C/S W&Q, K clear, AC deep, pupil round, PCIOL Dilated exam OD - ON s/p/f, ves normal, vit clear, retina flat OS - ON s/p/f, ves normal, vit clear, retina flat Laboratory Laboratory Tests Test 02/14/18 06:30 White Blood Count 6.6 Red Blood Count 4.75 Hemoglobin 13.4 Hematocrit 40.9 Mean Corpuscular Volume 86.0 Mean Corpuscular Hemoglobin 28.1 Mean Corpuscular Hemoglobin Concent 32.7 Red Cell Distribution Width 15.8 Platelet Count 187 Mean Platelet Volume 8.0 Neutrophils (%) (Auto) 73.9 Lymphocytes (%) (Auto) 11.1 Monocytes (%) (Auto) 8.6 Eosinophils (%) (Auto) 5.5 Basophils (%) (Auto) 0.9 Neutrophils # (Auto) 4.9 Lymphocytes # (Auto) 0.7 Monocytes # (Auto) 0.6 Eosinophils # (Auto) 0.4 Basophils # (Auto) 0.1 CBC Comment DIFF FINAL Differential Comment Blood Urea Nitrogen 10 Creatinine 1.14 Random Glucose 101 Calcium Level 8.8 Sodium Level 143 Potassium Level 3.8 Chloride Level 106 Carbon Dioxide Level 30.4 Anion Gap 7 Estimat Glomerular Filtration Rate 61 Date/Time Source Procedure Growth Status 02/09/18 23:14 Blood Peripheral Aerobic Blood Culture - Final NO GROWTH IN 5 DAYS Complete 02/09/18 23:14 Blood Peripheral Anaerobic Blood Culture - Final NO GROWTH IN 5 DAYS Complete 02/07/18 12:32 Urine Clean Catch Urine Culture - Final 10-50,000 CFU/ML MIXED GRAM POSITIVE ... Complete Result Diagram: 02/14/18 0630 02/14/18 0630 Assessment and Plan Problem List: (1) [place] sepsis ICD Codes: B37.7 - Candidal sepsis Plan: No fungal endophthalmitis on exam. Mitali Lazo MD February 14, 2018 11:48
[2018-02-14 12:00] VITALS: BP 142/70; PULSE 72; RESP 18; TEMP 97.6; O2SAT 94
--- NOTE | 2018-02-14 13:17 | HHI.IDPN ---
Subjective Subjective Remarks repeat BC remain negative awaiting 2 D echo no fever Antibiotics fluconazol Allergies: Coded Allergies: morphine (Verified Adverse Reaction, Severe, 02/05/18) "ALTERED MENTAL AND HALLUCINATIONS" Objective . Vital Signs Date Time Temp Pulse Resp B/P (MAP) Pulse Ox O2 Delivery O2 Flow Rate FiO2 02/14/18 08:55 97 Nasal Cannula 2.00 02/14/18 08:45 Nasal Cannula 2.00 02/14/18 08:00 97.5 74 18 134/71 (92) 93 02/14/18 00:00 97.1 84 16 157/73 (101) 93 02/13/18 20:32 Nasal Cannula 2.00 02/13/18 20:00 98.4 73 16 131/61 (84) 92 02/13/18 19:06 97 Nasal Cannula 2.00 . Laboratory Tests Test 02/14/18 06:30 White Blood Count 6.6 TH/MM3 Red Blood Count 4.75 MIL/MM3 Hemoglobin 13.4 GM/DL Hematocrit 40.9 % Mean Corpuscular Volume 86.0 FL Mean Corpuscular Hemoglobin 28.1 PG Mean Corpuscular Hemoglobin Concent 32.7 % Red Cell Distribution Width 15.8 % Platelet Count 187 TH/MM3 Mean Platelet Volume 8.0 FL Neutrophils (%) (Auto) 73.9 % Lymphocytes (%) (Auto) 11.1 % Monocytes (%) (Auto) 8.6 % Eosinophils (%) (Auto) 5.5 % Basophils (%) (Auto) 0.9 % Neutrophils # (Auto) 4.9 TH/MM3 Lymphocytes # (Auto) 0.7 TH/MM3 Monocytes # (Auto) 0.6 TH/MM3 Eosinophils # (Auto) 0.4 TH/MM3 Basophils # (Auto) 0.1 TH/MM3 CBC Comment DIFF FINAL Differential Comment Laboratory Tests Test 02/14/18 06:30 Blood Urea Nitrogen 10 MG/DL Creatinine 1.14 MG/DL Random Glucose 101 MG/DL Calcium Level 8.8 MG/DL Sodium Level 143 MEQ/L Potassium Level 3.8 MEQ/L Chloride Level 106 MEQ/L Carbon Dioxide Level 30.4 MEQ/L Anion Gap 7 MEQ/L Estimat Glomerular Filtration Rate 61 ML/MIN Imaging Last Impressions Head CT 02/07/18 0000 Signed Impressions: Service Date/Time: January 15:37 - CONCLUSION: Nothing acute. Luis Mooney MD Chest X-Ray 02/07/18 0000 Signed Impressions: Service Date/Time: January 13:10 - CONCLUSION: No definite acute pulmonary infiltrates. Mild pulmonary venous congestion. Persistent elevation of the right hemidiaphragm. Marshall Lantigua MD Abdomen/Pelvis CT 02/07/18 0000 Signed Impressions: Service Date/Time: January 16:42 - CONCLUSION: 1. There is stable nonobstructing stones in the left kidney. 2. Mild prominence of the left renal pelvis with some questionable edema in the region of the left renal pelvis. This raises the possibility of an inflammatory process such as pyelonephritis. Recommend correlation with UA and laboratory values. 3. Diffuse diverticulosis without inflammatory changes. 4. No other significant changes are seen compared to the prior study. Marshall Lantigua MD Physical Exam CONSTITUTIONAL/GENERAL: This is an adequately nourished patient, in no apparent distress. TUBES/LINES/DRAINS: SKIN: No jaundice, rashes, or lesions. Skin temperature appropriate. Not diaphoretic. CARDIOVASCULAR: Regular rate and rhythm without murmurs, gallops, or rubs. No JVD. Peripheral pulses symmetric. RESPIRATORY/CHEST: Symmetric, unlabored respirations. Clear to auscultation. Breath sounds equal bilaterally. No wheezes, rales, or rhonchi. GASTROINTESTINAL: Abdomen soft, non-tender, nondistended. No hepato-splenomegaly , or palpable masses. No guarding. Bowel sounds present. GENITOURINARY: Without palpable bladder distension. SP opening cew recent SP cath MUSCULOSKELETAL: Extremities without clubbing, cyanosis, or edema. No joint tenderness or effusion noted. No calf tenderness. No mottling or clubbing. NEUROLOGICAL: Awake and alert. Motor and sensory grossly within normal limits. Follows commands. remins confusd Moves all extremities. PSYCHIATRIC: No obvious anxiety/depression. no apparent hallucinations or other psychotic thought process. Assessment & Plan Remarks Assessment and Plan Assessment and Plan UTI, L sided pyelo complicated in a pt with ipsilateral stone [place] tropicalis fungemia ? source - can be UTI, but would expect + urine clx for C tropicalis awaiting ophthalmology consult High dose fluconazol 2 D echo repeat UA C+S Felipa Good MD February 14, 2018 13:17
[2018-02-14] MEDS ORDERED: DILA2TAB4 PO (15:15)
--- NOTE | 2018-02-14 15:15 | HHI.DCPOC ---
Discharge Care Plan Diagnosis: (1) [place] sepsis (2) Pyelonephritis (3) Complicated UTI (urinary tract infection) (4) MISSY (acute kidney injury) (5) Altered mental status Goals to Promote Your Health * To prevent worsening of your condition and complications * To maintain your health at the optimal level Directions to Meet Your Goals Take your medications as prescribed Follow your dietary instruction Follow activity as directed Keep your appointments as scheduled Take your immunizations and boosters as scheduled If your symptoms worsen call your PCP, if no PCP go to Urgent Care Center or Emergency Room Smoking is Dangerous to Your Health. Avoid second hand smoke Call the 24-hour hour crisis hotline for domestic abuse at Charlie Duval MD February 14, 2018 15:15
[2018-02-14 16:00] VITALS: BP 144/75; PULSE 99; RESP 18; TEMP 97.8; O2SAT 92
--- NOTE | 2018-02-14 16:35 | HHI.PR ---
Addendum to Inpatient Note Additional Information 2 d ECHO NEGATIVE FOR VEG'S NO E/O FUNGAL ENDOPHTHALMITIS Ok to dc pt to SNF cont fluconazole 400 mg po daily thru 02/24 dw Felipa Dobson MD February 14, 2018 16:35
[2018-02-14] MEDS ORDERED: FLUC200T2 PO (17:06)
--- NOTE | 2018-02-14 17:06 | HHI.DS ---
Discharge Summary Admission Date February 07, 2018 at 16:52 Discharge Date: February 14, 2018 Admitting Diagnosis urinary tract infection (1) Complicated UTI (urinary tract infection) ICD Code: N39.0 - Urinary tract infection, site not specified Diagnosis: Principal (2) Recurrent UTI (urinary tract infection) ICD Code: N39.0 - Urinary tract infection, site not specified (3) Altered mental status ICD Code: R41.82 - Altered mental status, unspecified (4) MISSY (acute kidney injury) ICD Code: N17.9 - Acute kidney failure, unspecified Procedures none Brief History - From Admission 83-year-old male with past medical history significant for prostate cancer s/p radiation treatment in 2007, recurrent UTIs, urinary retention, urethral calculus followed by . With recent suprapubic catheter insertion on 10/22/[address] De La Cruz and subsequent removal. Patient was most recently seen and evaluated in the emergency department on 02/05 with complaints of left lower quadrant pain radiating to the left flank as well as hip and groin area. UA during that visit with small amount of leukocyte Estrace and occult blood, culture grew 50-100,000 of mixed gram-positive kay. There was no leukocytosis at that time and neutrophils were mildly elevated at 84%. He was offered a CT scan however refused as he had had one done in September 2017. He was discharged with Macrobid 100 mg twice a day for 10 days. He returns today once again today accompanied by ex- due to increasing confusion, generalized weakness, difficulty ambulating which has progressively worsened over the past 2 days according to ER documentation. During my visit patient is evaluated in ER bay with no family or ex- at bedside. He is lethargic but arousable, confused and oriented only to self. He does follow directions however is a poor historian given his mental status. He denies any pain or discomfort however suprapubic tenderness is noted on exam. HPI limited secondary to his mental status. CBC/BMP: 02/14/18 0630 02/14/18 0630 Significant Findings Laboratory Tests Test 02/14/18 06:30 Neutrophils (%) (Auto) 73.9 % (16.0-70.0) Monocytes (%) (Auto) 8.6 % (0.0-8.0) Eosinophils (%) (Auto) 5.5 % (0.0-4.0) Lymphocytes # (Auto) 0.7 TH/MM3 (1.0-4.8) Estimat Glomerular Filtration Rate 61 ML/MIN (>89) Imaging Last Impressions Head CT 02/07/18 0000 Signed Impressions: Service Date/Time: January 15:37 - CONCLUSION: Nothing acute. Luis Mooney MD Chest X-Ray 02/07/18 0000 Signed Impressions: Service Date/Time: January 13:10 - CONCLUSION: No definite acute pulmonary infiltrates. Mild pulmonary venous congestion. Persistent elevation of the right hemidiaphragm. Marshall Lantigua MD Abdomen/Pelvis CT 02/07/18 0000 Signed Impressions: Service Date/Time: January 16:42 - CONCLUSION: 1. There is stable nonobstructing stones in the left kidney. 2. Mild prominence of the left renal pelvis with some questionable edema in the region of the left renal pelvis. This raises the possibility of an inflammatory process such as pyelonephritis. Recommend correlation with UA and laboratory values. 3. Diffuse diverticulosis without inflammatory changes. 4. No other significant changes are seen compared to the prior study. Marshall Lantigua MD Hospital Course Pt admitted, started on abx and fluids for suspected pyelonephritis. Encephalopathy resolved, mental status improved to what appeared to be baseline dementia. ID helped comanage abx. Found to have fungemia. Echo wnl. repeat Bc's neg. Ophthalmology saw no evidence fungal endophthalmitis. Cleared for d/c from ID standpoint. Pt has met maximal benefit from hospitalization and is clinically stable for discharge w/ oral antifungal. Pt Condition on Discharge: Stable Discharge Disposition: Discharge to SNF Discharge Time: <= 30 minutes Discharge Instructions DIET: Follow Instructions for: As Tolerated, No Restrictions Activities you can perform: See Additionl Instruction Other Activity Instructions: per rehab Follow up Referrals: PCP Follow-up - 1 Week Urology - 2 Weeks New Medications: Fluconazole (Fluconazole) 200 Mg Tab 400 MG PO DAILY for Infection, #11 TAB 0 Refills Hydromorphone (Dilaudid) 2 Mg Tab 2 MG PO Q6HR PRN for pain, #60 TAB Discontinued Medications: Hydrocodone-Acetaminophen (Hydrocodone-Acetaminophen) 10-325 mg Tab 1 TAB PO Q6H PRN for PAIN, TAB 0 Refills Nitrofurantoin Monohydrate Macrocrystals (Macrobid) 100 Mg Capsule 100 MG PO BID for Infection for 10 Days, #20 CAP 0 Refills Charlie Duval MD February 14, 2018 17:06
--- NOTE | 2018-02-15 17:31 | ECHRPT ---
Indication: VEGETATIONS CONCLUSIONS Technically difficult study. Normal left ventricular size and wall thickness. The left ventricular systolic function is normal wi th an estimated ejection fraction in the range of 60-65%. Left ventricular diastolic function parameters a re normal. BP: 119 / 58 HR: 68 Rhythm: Atrial flutter MEASUREMENTS (Male / Female) Normal Values Technical Quality:Technically difficult study DOPPLER TR Peak Velocity 327.0 cm/s TR Peak Gradient 42.8 mmHg Right Atrial Pressure 10.0 mmHg Pulmonary Artery Systolic Pressu 52.8 mmHg Right Ventricular Systolic Press 52.8 mmHg FINDINGS LEFT VENTRICLE Normal left ventricular size and wall thickness. The left ventricular systolic function is normal wi th an estimated ejection fraction in the range of 60-65%. Left ventricular diastolic function parameters a re normal. RIGHT VENTRICLE Normal right ventricular size and systolic function. LEFT ATRIUM The left atrial size is normal. RIGHT ATRIUM The right atrial size is normal. ATRIAL SEPTUM Normal atrial septal thickness without atrial level shunting by limited color doppler interrogation. AORTA The aortic root and proximal ascending aorta are normal in size on limited imaging. MITRAL VALVE Structurally normal mitral valve. No mitral valve stenosis or regurgitation. AORTIC VALVE Trileaflet aortic valve. No aortic valve stenosis or regurgitation. TRICUSPID VALVE The tricuspid valve is not well visualized. Structurally normal tricuspid valve. No tricuspid valve stenosis or regurgitation. PULMONARY VALVE No pulmonary valve regurgitation or stenosis. VESSELS The inferior vena cava is normal in size. PERICARDIUM No pericardial effusion. Bradley Feng MD, FACC Edited by: campus administrator campus administrator (Electronically Signed) Final Date:13 Feb 2018 13:24 Amended: 15 Feb 2018 17:30
== END 2018-02-14 18:44 | DRG 871 ==
LOC: NEPC 11:50 → NEDA 16:52 → N07B 17:35
PROVIDERS: ADMIT Hospitalist; ATTEND Hospitalist
DX: B37.7 Candidal sepsis (principal); G93.40 Encephalopathy, unspecified; N17.9 Acute kidney failure, unspecified; K21.9 Gastro-esophageal reflux disease without esophagitis; K57.90 Diverticulosis of intestine, part unspecified, without perforation or abscess without bleeding; N20.0 Calculus of kidney; E86.0 Dehydration; H53.2 Diplopia; L21.9 Seborrheic dermatitis, unspecified; H91.90 Unspecified hearing loss, unspecified ear; M19.90 Unspecified osteoarthritis, unspecified site; Z85.46 Personal history of malignant neoplasm of prostate; Z88.5 Allergy status to narcotic agent; Z92.3 Personal history of irradiation; Z96.612 Presence of left artificial shoulder joint; Z96.652 Presence of left artificial knee joint
CPT/HCPCS: 36600; 70450; 71045; 74176; 80048; 80053; 81001; 82805; 83605; 83880; 85025; 87040; 87086; 87106; 87205; 93308; 94150; 94640; 94664; 96365; J0696; J1170; J1450; J1644; J2185; J2543; J7030

== ENCOUNTER 2018-05-22 06:27 | Observation (INO) ==
[2018-05-22 07:04] LABS: Bilirubin,Urine Negative (Negative); Clarity,Urine Slightly Cloudy (Clear); Color,Urine Yellow (Yellw/Straw); Glucose,Urine (UA) Negative (Negative); Leukocyte Esterase,Urine Small (Negative); Nitrite,Urine Negative (Negative); PH,Urine 5.5 (5.0-8.5); Specific Gravity,Urine Greater/Equal 1.030 (1.002-1.035); Urobilinogen,Urine 0.2 mg/dL (Less than 2)
[2018-05-22 07:09] LABS: Collection Time,Urine 645 hours
--- NOTE | 2018-05-22 07:10 | ED ---
HPI General Chief complaint: Urogenital-Male Stated complaint: abd pain Time Seen by Provider: 05/22/18 06:57 Source: patient Mode of arrival: ambulatory Limitations: no limitations History of Present Illness HPI narrative: 83yo M with PMH of prostate CA s/p radiation therapy here with c/ o nausea, intermittent fever and abdominal bloating. Pt was seen here 2 days ago and UA concerning for infection so given ciprofloxacin which pt said he has been taking. Urine culture from 05/20/18 showed group D enterococcus and yeast with ID to follow. Pt had refused CT at the time. Denies any chest pain, sob, new focal weakness or numbness. Related Data Previous Rx's Medication Instructions Recorded ciprofloxacin HCl 500 mg PO BID 10 Days #20 tab 05/20/18 Allergies Allergy/AdvReac Type Severity Reaction Status Date / Time morphine AdvReac Severe Hallucinati Verified 05/22/18 06:48 ons Review of Systems ROS: all other systems reviewed are negative [facility] Medical History Medical History [place] sepsis (Acute) Urinary retention (Acute) Urinary tract infection (Acute) Acute kidney failure (Acute) Calculus of kidney (Acute) Cystitis (Acute) Diplopia (Acute) Diverticulitis (Acute) GERD (gastroesophageal reflux disease) (Acute) Malignant neoplasm of prostate (Acute) Surgical History Surgical History H/O laminectomy (Acute) History of appendectomy (Acute) Hx of tonsillectomy (Acute) Presence of left artificial knee joint (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 HEAD: Atraumatic. Normocephalic. EYES: Pupils equal and round. No scleral icterus. No injection or drainage. ENT: No nasal bleeding or discharge. Mucous membranes pink and moist. NECK: Trachea midline. No JVD. CARDIOVASCULAR: Regular rate and rhythm. No murmur appreciated. RESPIRATORY: No accessory muscle use. Clear to auscultation. Breath sounds equal bilaterally. GASTROINTESTINAL: Abdomen soft, +TTP left lower abdomen. No rebound tenderness or guarding. MUSCULOSKELETAL: No obvious deformities. No clubbing. No cyanosis. No edema. NEUROLOGICAL: Awake and alert. No obvious cranial nerve deficits. Motor grossly within normal limits. Normal speech. PSYCHIATRIC: Appropriate mood and affect; insight and judgment normal. Course Initial Documented Vital Signs Temperature 97.5 F L 05/22/18 06:28 Pulse Rate 63 05/22/18 06:28 Respiratory Rate 18 05/22/18 06:28 Blood Pressure 116/58 L 05/22/18 06:28 Pulse Oximetry 98 05/22/18 06:28 Last Documented Vital Signs Temperature 97.5 F L 05/22/18 06:28 Pulse Rate 65 05/22/18 08:41 Respiratory Rate 18 05/22/18 08:41 Blood Pressure 115/63 05/22/18 08:41 Pulse Oximetry 98 05/22/18 06:48 Medical Decision Making MDM Narrative Medical decision making narrative: 83yo M with PMH of prostate CA s/p radiation and follows with [facility] here with c/o tactile fever, nausea and worsening urinary symptoms. Pt was just placed on cipro after being evaluated in the ED 2 days ago. Pt is feeling worst. He has frequent UTIs and said he was just off antibiotics from [facility] about 2.5 weeks ago. Labs reviewed, no leukocytosis. Lipase 81. BUN mildly elevated at 19. Creatinine normal at 1.20. UA showed WBC 51-189. Moderate WBC clumps. Pt given zofran but is still nauseous. Will admit pt for IV antibiotics and possibly ID consult. Pt had mild left lower abdominal tenderness on exam but refused CT a/p stating because of his cervical spinal fusion, he cannot lay down. Pt given ceftriaxone. This is patient's second visit to the ED for same complaint. Pt lives by himself and has history of complicated recurrent UTI so will observe with IV antibiotics. Discussed with Dr. Cardoza. Medical Screen Exam Complete: Yes Emergency Medical Condition: Yes Differential Diagnosis Differential Diagnosis: Sepsis secondary UTI vs. failure of outpatient therapy Lab Data Result diagrams: 05/22/18 07:25 05/22/18 07:25 Lab Results 05/22/18 05/22/18 05/22/18 Range/Units 06:45 07:25 07:25 CBC w Diff Auto diff final WBC 4.6 (4.0-11.0) th/mm3 RBC 4.40 L (4.50-5.90) mil/mm3 Hgb 13.0 (13.0-17.0) gm/dL Hct 38.4 L (39.0-51.0) % MCV 87.4 (80.0-100.0) fL MCH 29.6 (27.0-34.0) pg MCHC 33.9 (32.0-36.0) % RDW 15.6 (11.6-17.2) % Plt Count 196 (150-450) th/mm3 MPV 7.1 (7.0-11.0) fL Neut % (Auto) 68.3 (16.0-70.0) % Lymph % (Auto) 17.0 (9.0-44.0) % Mccone % (Auto) 9.6 H (0.0-8.0) % Eos % (Auto) 4.5 H (0.0-4.0) % Baso % (Auto) 0.6 (0.0-2.0) % Neut # (Auto) 3.2 (1.8-7.7) th/mm3 Lymph # (Auto) 0.8 L (1.0-4.8) th/mm3 Mccone # (Auto) 0.4 (0.0-0.9) th/mm3 Eos # (Auto) 0.2 (0.0-0.4) th/mm3 Baso # (Auto) 0.0 (0.0-0.2) th/mm3 WBC Differential . Differential Comment . Sodium 143 (136-145) meq/L Potassium 4.0 (3.5-5.1) meq/L Chloride 110 H (98-107) meq/L Carbon Dioxide 28.0 (21.0-32.0) meq/L Anion Gap 5 (5-15) meq/L BUN 19 H (7-18) mg/dL Creatinine 1.20 (0.60-1.30) mg/dL Estimated GFR 58 L (>89) mL/min Random Glucose 97 (74-106) mg/dL Lactic Acid (0.4-2.0) mmol/L Calcium 8.5 (8.5-10.1) mg/dL Lipase 81 (73-393) U/L Ur Collection Type Clean catch Urine Color Yellow (Yellw/Straw) Urine Clarity Slightly cloudy (Clear) Urine pH 5.5 (5.0-8.5) Ur Specific Stephenson Greater/equal 1.030 (1.002-1.035) Urine Protein 30 H (Neg-Trace) mg/dL Urine Glucose (UA) Negative (Negative) mg/dL Urine Ketones Negative (Negative) mg/dL Urine Occult Blood Trace (Negative) Urine Nitrate Negative (Negative) Urine Bilirubin Negative (Negative) Urine Urobilinogen 0.2 (Less than 2) mg/dL Ur Leukocyte Esterase Small H (Negative) Urine RBC 4-15 H (0-3) /hpf Urine WBC 51-189 H (0-5) /hpf Urine WBC Clumps Moderate H (None) Ur Squamous Epith Cells 6-10 H (0-5) /hpf Ur Transition Epith Cell 1-5 H (None) /hpf Amorphous Sediment Moderate H (None) /hpf Urine Bacteria Few H (None) /hpf Urine Mucus Few H (Occasional) /lpf Urine Yeast Few H (None) /hpf Micro UA Comment Culture indicated Ur Microscopic Review Microscopic reviewed Urine Culture Comments Culture indicated Urine Collection Time 645 hours 05/22/18 Range/Units 07:25 CBC w Diff WBC (4.0-11.0) th/mm3 RBC (4.50-5.90) mil/mm3 Hgb (13.0-17.0) gm/dL Hct (39.0-51.0) % MCV (80.0-100.0) fL MCH (27.0-34.0) pg MCHC (32.0-36.0) % RDW (11.6-17.2) % Plt Count (150-450) th/mm3 MPV (7.0-11.0) fL Neut % (Auto) (16.0-70.0) % Lymph % (Auto) (9.0-44.0) % Mccone % (Auto) (0.0-8.0) % Eos % (Auto) (0.0-4.0) % Baso % (Auto) (0.0-2.0) % Neut # (Auto) (1.8-7.7) th/mm3 Lymph # (Auto) (1.0-4.8) th/mm3 Mccone # (Auto) (0.0-0.9) th/mm3 Eos # (Auto) (0.0-0.4) th/mm3 Baso # (Auto) (0.0-0.2) th/mm3 WBC Differential Differential Comment Sodium (136-145) meq/L Potassium (3.5-5.1) meq/L Chloride (98-107) meq/L Carbon Dioxide (21.0-32.0) meq/L Anion Gap (5-15) meq/L BUN (7-18) mg/dL Creatinine (0.60-1.30) mg/dL Estimated GFR (>89) mL/min Random Glucose (74-106) mg/dL Lactic Acid 0.7 (0.4-2.0) mmol/L Calcium (8.5-10.1) mg/dL Lipase (73-393) U/L Ur Collection Type Urine Color (Yellw/Straw) Urine Clarity (Clear) Urine pH (5.0-8.5) Ur Specific Stephenson (1.002-1.035) Urine Protein (Neg-Trace) mg/dL Urine Glucose (UA) (Negative) mg/dL Urine Ketones (Negative) mg/dL Urine Occult Blood (Negative) Urine Nitrate (Negative) Urine Bilirubin (Negative) Urine Urobilinogen (Less than 2) mg/dL Ur Leukocyte Esterase (Negative) Urine RBC (0-3) /hpf Urine WBC (0-5) /hpf Urine WBC Clumps (None) Ur Squamous Epith Cells (0-5) /hpf Ur Transition Epith Cell (None) /hpf Amorphous Sediment (None) /hpf Urine Bacteria (None) /hpf Urine Mucus (Occasional) /lpf Urine Yeast (None) /hpf Micro UA Comment Ur Microscopic Review Urine Culture Comments Urine Collection Time hours Discharge Plan Discharge Disposition Patient Disposition: 30 Still Patient Discharge Details Diagnosis: Complicated urinary tract infection Physicians Team ED Provider: Kristen Rasheed Primary Care Provider: NON STAFF,PROVIDER Attending Provider: Chadwick Cardoza Status ED Status: Admitted Observation Patient
[2018-05-22 07:12] LABS: Amorphous Sediment,Urine Moderate /hpf; Bacteria,Urine Few /hpf; Mucus,Urine Few /lpf (Occasional); WBC,Urine 51-189 /hpf (0-5)
[2018-05-22 07:31] LABS: Baso % (Auto) 0.6 % (0.0-2.0); Eos # (Auto) 0.2 th/mm3 (0.0-0.4); Eos % (Auto) 4.5 % (0.0-4.0); Hematocrit 38.4 % (39.0-51.0); Lymph # (Auto) 0.8 th/mm3 (1.0-4.8); Mean Corpuscular HGB Conc 33.9 % (32.0-36.0); Mean Corpuscular Hemoglobin 29.6 pg (27.0-34.0); Mean Corpuscular Volume 87.4 fL (80.0-100.0); Mean Platelet Volume 7.1 fL (7.0-11.0); Mono # (Auto) 0.4 th/mm3 (0.0-0.9); Mono % (Auto) 9.6 % (0.0-8.0); Neut # (Auto) 3.2 th/mm3 (1.8-7.7); Neut % (Auto) 68.3 % (16.0-70.0); Platelet Count 196 th/mm3 (150-450); Red Cell Distribution Width 15.6 % (11.6-17.2); White Blood Count 4.6 th/mm3 (4.0-11.0)
[2018-05-22 07:41] LABS: Calcium 8.5 mg/dL (8.5-10.1)
[2018-05-22] MEDS ORDERED: Sodium Chlor 0.9% Inj 500 ML IV.SIG SCH (08:00)
[2018-05-22] MEDS ORDERED: Bisacodyl 10 MG Supp RECTAL PRN (08:41)
[2018-05-22] MEDS ORDERED: Acetaminophen 325 MG Tablet PO PRN (08:41)
[2018-05-22] MEDS: Sod Chloride 0.9% Inj 1,000 ML IV.CONT SCH ×2 (09:05→21:31)
[2018-05-22] MEDS: Senna/Docusate Sodium 8.6/50 MG Tablet PO SCH ×2 (09:06→21:32)
--- NOTE | 2018-05-22 14:23 | P.HP ---
History of Present Illness Primary Care Physician: PROVIDER NON STAFF Chief Complaint: abdominal pain History of Present Illness: 83-year-old male with known history of recurrent urinary tract infection who presented to the hospital because of lower abdominal pain. Patient states that over the last week he has been experiencing lower abdominal discomfort with change in urine color and odor. He states that whenever he wakes up in the morning he has a discomfort and he has a Jesse [employer]uri sausage breakfast sandwich and the pain usually goes away. However few days ago he had severe amount of abdominal pain did not resolve with his morning breakfast sandwich so he went to the emergency department and was found to have urinary tract infection he was started on Cipro. Patient states that he did not feel any better so he came back to the emergency department today. The urinalysis does show an improvement with the number of WBCs and bacteria. It appears that the antibiotics were working. However due to the patient's age, he lives at home by self and history of recurrent urinary tract infections it was recommended by the ER physician that the patient be admitted for further evaluation and management. Upon evaluating the patient is resting comfortably in bed. States it is no longer experiencing any abdominal pain. He denies any fever, chills - Diagnosis (1) Abdominal pain (2) Urinary tract infection Review of Systems All other systems reviewed negative except as stated in HPI Gastrointestinal: Reports abdominal pain Genitourinary: Reports difficulty urinating PMFSH - History History Provided By: Patient - Medical History Medical History: Medical History (Last Reviewed 05/22/18 @ 13:51 by NACHO Fraire) [place] sepsis Urinary retention Urinary tract infection Acute kidney failure Calculus of kidney Cystitis Diplopia Diverticulitis GERD (gastroesophageal reflux disease) Malignant neoplasm of prostate - Surgical History Surgical History: Surgical History (Last Updated 05/22/18 @ 14:05 by NACHO Fraire) H/O laminectomy History of cataract surgery History of appendectomy Hx of tonsillectomy 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 - Family History Family History: Family History (Last Updated 05/22/18 @ 14:02 by NACHO Fraire) Mother History of heart disease Father History of heart disease - Tobacco History Second Hand Smoke Exposure: No Tobacco Use In Past 30 Days: No Smoking Status: Never smoker - Alcohol History How Often Do You Have a Drink Containing Alcohol: Never - Substance Use History Substance History: No History of Abuse - Travel History Recent Travel in the [place] Within the Last 8 Weeks: No Recent Travel Out of the Country Within the Last 8 Weeks: No - Immunization History Tetanus Immunization: >5 Years Hx Influenza Vaccine This Season: No Medications and Allergies Active Medications: Active Medications Acetaminophen (Tylenol) 650 mg PO Q4H PRN PRN Reason: Headache, fever, pain 1-5 Al Hydroxide/Mg Hydroxide (Milk Of Magnesia Liq) 30 ml PO Q12H PRN PRN Reason: Mild Constipation Bisacodyl (Dulcolax Supp) 10 mg RECTAL DAILY PRN PRN Reason: SEVERE CONSITIPATION Sodium Chloride (Ns Inj) 500 mls @ 0 mls/hr IV.SIG BOLUS [facility] Last Infusion: 05/22/18 08:28 Dose: Infused Ampicillin Sodium 2,000 mg/ (Sodium Chloride) 100 mls @ 400 mls/hr IV.SIG Q6H [facility] Last Infusion: 05/22/18 09:48 Dose: Infused Sodium Chloride (Ns Inj) 1,000 mls @ 100 mls/hr IV.CONT .Q10H [facility] Last Admin: 05/22/18 09:05 Dose: 100 mls/hr Lactulose (Lactulose Liq) 30 ml PO DAILY PRN PRN Reason: SEVERE CONSITIPATION Ondansetron HCl (Zofran Inj) 4 mg IV.PUSH Q6H PRN PRN Reason: NAUSEA OR VOMITING Senna/Docusate Sodium (Stephy-Colace) 1 tab PO BID [facility] Last Admin: 05/22/18 09:06 Dose: 1 tab Sennosides (Senokot) 17.2 mg PO Q12H PRN PRN Reason: Moderate Constipation Allergies Allergy/AdvReac Type Severity Reaction Status Date / Time morphine AdvReac Severe Hallucinati Verified 05/22/18 06:48 ons Exam Vital signs: Vital Signs 05/22/18 06:28 05/22/18 06:48 05/22/18 08:41 Temperature 97.5 F L Pulse Rate 63 61 65 Respiratory Rate 18 18 18 Blood Pressure 116/58 L 113/61 115/63 Pulse Oximetry 98 98 Intake & Output 05/21/18 05/22/18 05/22/18 18:59 06:59 18:59 Intake Total 700 / 700 Output Total 400 / 400 Balance 300 / 300 Weight 82.3 kg Intake: IV 700 / 700 Ampicillin Inj 2,000 MG In NS 100 / 100 Inj 100 ML @ 400 mls/hr IV.SIG Q6H [facility] Rx#:[id number] NS Inj 500 ML @ Wide Open IV. 500 / 500 SIG BOLUS [facility] Rx#:[id number] Rocephin Inj 1,000 MG In NS Inj 100 / 100 100 ML @ 200 mls/hr IV.SIG ONCE ONE Rx#:[id number] Output: Urine 400 / 400 Other: # Voids 1 Narrative: GENERAL: Well-developed, well-nourished, in no acute distress. alert and orientated HEENT: Head is normocephalic without any lesions or masses noted. Facial features are symmetric. Eyes: Pupils equal round obvious abnormalities from previous cataract surgery. Extraocular muscles are intact. Conjunctivae were clear. Oropharyngeal: Pharynx without any erythema edema. Tongue is midline without deviation. Buccal mucosa is moist without any masses or lesions NECK: Supple without any masses. Trachea midline no deviation. No JVD, no bruits are appreciated CARDIAC: Regular rhythm, regular rate. S1/S2 are heard. No murmurs gallops or rubs. LUNGS: Clear to auscultation bilaterally. No wheeze, rhonchi or rales. No use of accessory muscles on inspiration or expiration. ABDOMEN: Soft, nontender. Nondistended. Bowel sounds heard in all 4 quadrants. No organomegaly or masses. Negative rebound, negative guarding EXTREMITIES: No edema, pulses are equal bilaterally. No cyanosis or clubbing NEUROLOGY: Mood and affect appear appropriate. Cranial nerves II through XII grossly intact. Muscle strength 5/5 in upper and lower extremities bilaterally. Deep tendon reflexes are 2+ in upper and lower extremities bilaterally. Results - Labs CBC & Chem 7: 05/22/18 07:25 05/22/18 07:25 Labs: Laboratory Results - last 24 hr 05/22/18 05/22/18 05/22/18 06:45 07:25 07:25 CBC w Diff Auto diff final WBC 4.6 RBC 4.40 L Hgb 13.0 Hct 38.4 L MCV 87.4 MCH 29.6 MCHC 33.9 RDW 15.6 Plt Count 196 MPV 7.1 Neut % (Auto) 68.3 Lymph % (Auto) 17.0 [place] % (Auto) 9.6 H Eos % (Auto) 4.5 H Baso % (Auto) 0.6 Neut # (Auto) 3.2 Lymph # (Auto) 0.8 L [place] # (Auto) 0.4 Eos # (Auto) 0.2 Baso # (Auto) 0.0 WBC Differential . Differential Comment . Sodium 143 Potassium 4.0 Chloride 110 H Carbon Dioxide 28.0 Anion Gap 5 BUN 19 H Creatinine 1.20 Estimated GFR 58 L Random Glucose 97 Lactic Acid Calcium 8.5 Lipase 81 Ur Collection Type Clean catch Urine Color Yellow Urine Clarity Slightly cloudy Urine pH 5.5 Ur Specific [place] Greater/equal 1.030 Urine Protein 30 H Urine Glucose (UA) Negative Urine Ketones Negative Urine Occult Blood Trace Urine Nitrate Negative Urine Bilirubin Negative Urine Urobilinogen 0.2 Ur Leukocyte Esterase Small H Urine RBC 4-15 H Urine WBC 51-189 H Urine WBC Clumps Moderate H Ur Squamous Epith Cells 6-10 H Ur Transition Epith Cell 1-5 H Amorphous Sediment Moderate H Urine Bacteria Few H Urine Mucus Few H Urine Yeast Few H Micro UA Comment Culture indicated Ur Microscopic Review Microscopic reviewed Urine Culture Comments Culture indicated Urine Collection Time 645 05/22/18 07:25 CBC w Diff WBC RBC Hgb Hct MCV MCH MCHC RDW Plt Count MPV Neut % (Auto) Lymph % (Auto) [place] % (Auto) Eos % (Auto) Baso % (Auto) Neut # (Auto) Lymph # (Auto) [place] # (Auto) Eos # (Auto) Baso # (Auto) WBC Differential Differential Comment Sodium Potassium Chloride Carbon Dioxide Anion Gap BUN Creatinine Estimated GFR Random Glucose Lactic Acid 0.7 Calcium Lipase Ur Collection Type Urine Color Urine Clarity Urine pH Ur Specific [place] Urine Protein Urine Glucose (UA) Urine Ketones Urine Occult Blood Urine Nitrate Urine Bilirubin Urine Urobilinogen Ur Leukocyte Esterase Urine RBC Urine WBC Urine WBC Clumps Ur Squamous Epith Cells Ur Transition Epith Cell Amorphous Sediment Urine Bacteria Urine Mucus Urine Yeast Micro UA Comment Ur Microscopic Review Urine Culture Comments Urine Collection Time Caprini VTE Risk Assessment Caprini VTE Risk Assessment: Moderate/High Risk (score >= 2) Caprini Risk Assessment Model: Point Value = 1 Point Value = 2 Point Value = 3 Point Value = 5 Age 41-60 Minor surgery BMI > 25 kg/m2 Swollen legs Varicose veins or History of unexplained or recurrent spontaneous Oral contraceptives or hormone replacement Sepsis (< 1 month) Serious lung disease, including pneumonia (< 1 month) Abnormal pulmonary function Acute myocardial infarction Congestive heart failure (< 1 month) History of inflammatory bowel disease Medical patient at bed rest Age 61-74 Arthroscopic surgery Major open surgery (> 45 min) Laparoscopic surgery (> 45 min) Malignancy Confined to bed (> 72 hours) Immobilizing plaster cast Central venous access Age >= 75 History of VTE Family history of VTE Factor V Leiden Prothrombin [id number] Lupus anticoagulant Anticardiolipin antibodies Elevated serum homocysteine Heparin-induced thrombocytopenia Other congenital or acquired thrombophilia Stroke (< 1 month) Elective arthroplasty Hip, pelvis, or leg fracture Acute spinal cord injury (< 1 month) Prophylaxis Regimen: Total Risk Factor Score Risk Level Prophylaxis Regimen 0-1 Low Early ambulation 2 Moderate Order ONE of the following: *Sequential Compression Device (SCD) *Heparin 5000 units SQ BID 3-4 Higher Order ONE of the following medications: *Heparin 5000 units SQ TID *Enoxaparin/Lovenox 40 mg SQ daily (WT < 150 kg, CrCl > 30 mL/min) *Enoxaparin/Lovenox 30 mg SQ daily (WT < 150 kg, CrCl > 10-29 mL/min) *Enoxaparin/Lovenox 30 mg SQ BID (WT < 150 kg, CrCl > 30 mL/min) AND/OR *Sequential Compression Device (SCD) 5 or more Highest Order ONE of the following medications: *Heparin 5000 units SQ TID (Preferred with Epidurals) *Enoxaparin/Lovenox 40 mg SQ daily (WT < 150 kg, CrCl > 30 mL/min) *Enoxaparin/Lovenox 30 mg SQ daily (WT < 150 kg, CrCl > 10-29 mL/min) *Enoxaparin/Lovenox 30 mg SQ BID (WT < 150 kg, CrCl > 30 mL/min) AND *Sequential Compression Device (SCD) Assessment and Plan - Assessment (1) Abdominal pain Code(s): R10.9 - Unspecified abdominal pain Status: Acute (2) Urinary tract infection Code(s): N39.0 - Urinary tract infection, site not specified Status: Acute - Plan Urinary tract infection, recurrent -Patient does have history of recurrent urinary tract infections with multiple bacteria to include staph species, E. coli, Enterococcus faecalis. -Today's urinalysis does show an improvement from previous one a few days ago after the patient has been on Cipro -Patient was given Rocephin in the emergency department -Patient's urine culture is showing enterococcus species, final culture not ready at this time -We will start ampicillin IV until final culture DVT prevention -Sequential compression devices
[2018-05-22 21:38] VITALS: RESP 18
[2018-05-23 08:32] VITALS: BP 123/69; PULSE 58; TEMP 97.6; O2SAT 19
--- NOTE | 2018-05-23 08:43 | P.PN ---
Subjective Interval history: 83-year-old male who is seen and examined today complicated urinary tract infection. Patient does have history of recurrent urinary tract infections with multiple bugs. Culture is back at this time indicating Enterococcus faecalis. Patient is asymptomatic. Vital signs are stable. Patient remains afebrile. Patient is concerned that he will continue to have recurrent urine tract infections. I notified him that he is to follow-up with his biomedical doctor in order to keep a closer eye on his infections, possible prophylaxis antibiotics. Physical Exam Vital signs: Vital Signs 05/22/18 08:41 05/22/18 11:40 05/22/18 16:00 Temperature 97.2 F L 96.9 F L Pulse Rate 65 64 74 Respiratory Rate 18 20 20 Blood Pressure 115/63 131/71 124/72 Pulse Oximetry 98 95 05/22/18 20:00 05/23/18 00:00 05/23/18 08:00 Temperature 97.8 F 97.4 F L 97.6 F Pulse Rate 64 53 L 58 L Respiratory Rate 18 18 Blood Pressure 124/65 112/59 L 123/69 Pulse Oximetry 92 L 96 19 L Intake & Output 05/22/18 05/23/18 05/23/18 18:59 06:59 18:59 Intake Total 1580 / 1580 1600 / 1600 Output Total 525 / 525 1999 / 1999 Balance 1055 / 1055 -400 / -400 Weight 81.2 kg Intake: IV 800 / 800 1200 / 1200 NS Inj 1,000 ML @ 100 mls/hr IV 1000 / 1000 .CONT .Q10H [facility] Rx#:[id number] Ampicillin Inj 2,000 MG In NS 200 / 200 200 / 200 Inj 100 ML @ 400 mls/hr IV.SIG Q6H [facility] Rx#:[id number] NS Inj 500 ML @ Wide Open IV. 500 / 500 SIG BOLUS [facility] Rx#:[id number] Rocephin Inj 1,000 MG In NS Inj 100 / 100 100 ML @ 200 mls/hr IV.SIG ONCE ONE Rx#:[id number] Oral 780 / 780 400 / 400 Output: Urine 525 / 525 1999 Other: # Voids 1 1 # Incontinent Voids 2 Date of Last Bowel Movement 05/22/18 # Bowel Movements 1 Weight On Admission 81.2 kg Narrative: GENERAL: Well-developed, well-nourished, in no acute distress. alert and orientated HEENT: Head is normocephalic without any lesions or masses noted. Facial features are symmetric. Eyes: Pupils equal round obvious abnormalities from previous cataract surgery. Extraocular muscles are intact. Conjunctivae were clear. NECK: Supple without any masses. Trachea midline no deviation. No JVD, CARDIAC: Regular rhythm, regular rate. S1/S2 are heard. No murmurs gallops or rubs. LUNGS: Clear to auscultation bilaterally. No wheeze, rhonchi or rales. No use of accessory muscles on inspiration or expiration. ABDOMEN: Soft, nontender. Nondistended. Bowel sounds heard in all 4 quadrants. No organomegaly or masses. Negative rebound, negative guarding EXTREMITIES: No edema, pulses are equal bilaterally. No cyanosis or clubbing NEUROLOGY: Mood and affect appear appropriate. Cranial nerves II through XII grossly intact. Moving all extremities, speech is clear Results - Labs CBC & Chem 7: 05/22/18 07:25 05/22/18 07:25 - Procedures None Assessment and Plan - Assessment (1) Abdominal pain Code(s): R10.9 - Unspecified abdominal pain Status: Acute (2) Urinary tract infection Code(s): N39.0 - Urinary tract infection, site not specified Status: Acute - Plan Urinary tract infection, recurrent -Patient does have history of recurrent urinary tract infections with multiple bacteria to include staph species, E. coli, Enterococcus faecalis. -Recent urinalysis does show an improvement from previous one a few days ago after the patient has been on Cipro -Patient was given Rocephin in the emergency department -Patient's urine culture is showing enterococcus species, final culture indicating Enterococcus faecalis, and yeast species -Continue ampicillin IV -We will discharge home on ampicillin Physical deconditioning -Physical therapy evaluated patient and recommended home health care -Case management consulted for home health care, home health physical therapy DVT prevention -Sequential compression devices Discharge Planning: Discharge home in stable condition Activity: Ad fay. Diet: Healthy heart diet Medication per medication reconciliation Follow-up with primary medical doctor in 1 week
[2018-05-23] MEDS: Senna/Docusate Sodium 8.6/50 MG Tablet PO SCH (09:21)
[2018-05-23] MEDS: Sod Chloride 0.9% Inj 1,000 ML IV.CONT SCH (09:24)
--- NOTE | 2018-05-23 09:56 | P.DCO ---
- Physical Therapy Order: Evaluate and treat, Improve ambulation, Strength and gait training - Home Health Nursing Order: Medical education, Signs/symptoms of disease process, Nursing assessment with vital signs - Certification I have seen patient Josemanuel Canales on 05/23/18. My clinical findings support the need for the requested home health care services because: Deconditioned with increased weakness I certify that my clinical findings support that this patient is homebound because: Unsteady gait/balance, Unsafe to leave home unassisted
--- NOTE | 2018-05-23 10:45 | P.DCO ---
- Physical Therapy Order: Evaluate and treat, Improve ambulation, Strength and gait training - Home Health Nursing Order: Medical education, Signs/symptoms of disease process, Nursing assessment with vital signs - Home Health Aide Order: To assist in: Bathing and personal care, test borer and meal prep - [place] Operator Order: To evaluate: Living conditions/environment, Support services Order: To provide: Long range planning, Community services - Certification I have seen patient Josemanuel Canales on 05/23/18. My clinical findings support the need for the requested home health care services because: Deconditioned with increased weakness, Limited ability to care for self I certify that my clinical findings support that this patient is homebound because: Unsteady gait/balance, Unsafe to leave home unassisted
== END 2018-05-23 13:59 | disposition home or self-care (01) ==
LOC: PHEDA 06:27 → PHED 06:27 → PH3 09:53
PROVIDERS: ADMIT Hospitalist; ATTEND Hospitalist
DX: B37.7 Candidal sepsis; R11.0 Nausea; Z92.3 Personal history of irradiation; K57.92 Diverticulitis of intestine, part unspecified, without perforation or abscess without bleeding; H53.2 Diplopia; B95.2 Enterococcus as the cause of diseases classified elsewhere; Z85.46 Personal history of malignant neoplasm of prostate; N20.0 Calculus of kidney; K21.9 Gastro-esophageal reflux disease without esophagitis; Z87.440 Personal history of urinary (tract) infections; N39.0 Urinary tract infection, site not specified; N17.9 Acute kidney failure, unspecified